=== PATIENT | female | born 1950 | race Caucasian/White ===

== ENCOUNTER 2022-04-20 14:25 | Emergency (ER) | payer MEDICARE, OTHER, SELFPAY ==
--- NOTE | ~2022-04-20 | XR_ITS ---
EXAMINATION: XR chest 2V Exam Date/Time: 04/20/2022 14:55 HOTEL OPERATIONS MANAGER HISTORY: COUGH, COVID+ Comparison: 02/20/2018. RESULT: Lines, tubes, and devices: None. Lungs and pleura: Clear. Calcified right middle lobe granuloma. Cardiomediastinal silhouette: Stable. Other: No acute osseous or upper abdominal finding. IMPRESSION: No acute cardiopulmonary process. Reviewed, dictated and finalized at location K. L OPERATIONS MANAGER
--- NOTE | 2022-04-20 14:32 | ED.URI ---
HPI - URI/Sore Throat General Chief Complaint: Upper Respiratory Infection Stated Complaint: cough,breathing prob,sneezing Time Seen by Provider: 04/20/22 14:45 Source: patient Mode of arrival: ambulatory Limitations: no limitations History of Present Illness HPI Narrative: Chrissy is a 71-year-old female patient presenting to the clinic today with complaints of cough, sneezing, and breathing problems x5 days. Family member reports that they tested her for COVID on Friday and was negative and retest her today and was positive. Patient reports that she is becoming more short of breath. She denies any chest pain, fever, or chills. Cough is not productive MD elicited complaint: cough, rhinorrhea, nasal congestion and other Related Data Home Medications Medication Instructions Recorded Confirmed cholecalciferol (vitamin D3) 25 25 mcg PO DAILY 05/24/19 05/25/19 mcg (1,000 unit) capsule epinephrine 0.3 mg/0.3 mL 0.3 mg IM ONCE 05/24/19 05/25/19 injection, auto-injector (EpiPen) flecainide 100 mg tablet 100 mg PO Q12H PRN 05/24/19 05/25/19 fluoxetine 10 mg capsule 10 mg PO DAILY 05/24/19 05/25/19 folic acid 1 mg tablet 1 mg PO DAILY 05/25/19 05/25/19 lactobacillus combination no.8 3 3,000 mmu cells PO DAILY 05/25/19 05/25/19 billion cell capsule (Adult Probiotic) eoqhzenr-lbhwxbn-utix-lutein tablet mcg PO 05/25/19 05/25/19 vitamin B complex 1 tablet PO DAILY 05/25/19 05/25/19 Allergies Allergy/AdvReac Type Severity Reaction Status Date / Time trimethoprim Allergy Mild trimethoprim Verified 04/20/22 14:39 ([id number]) bacitracin Allergy Unknown bacitracin Verified 04/20/22 14:39 ([id number]) clarithromycin Allergy Unknown clarithromycin Verified 04/20/22 14:39 ([id number]) diphenhydramine Allergy Unknown diphenhydramine Verified 04/20/22 14:39 ([id number]) nickel Allergy Unknown Unknown Verified 04/20/22 14:39 Penicillins Allergy Unknown Penicillins Verified 04/20/22 14:39 ([id number]) pseudoephedrine Allergy Unknown pseudoephedrine Verified 04/20/22 14:39 ([id number]) silicone Allergy Unknown silicone Verified 04/20/22 14:39 ([id number]) Sulfa (Sulfonamide Allergy Unknown Sulfa Verified 04/20/22 14:39 Antibiotics) (Sulfonamide Antibiotics) ([id number]) Review of Systems Review of Systems: Pertinent positives per HPI. Patient denies any fever, chills, rash, headache, visual changes, dizziness, chest pain, palpitations, nausea, vomiting, diarrhea, constipation, abdominal pain, or any urinary issues. [facility] Past Medical History Medical History Chest pain in adult History of ectopic PAF (paroxysmal atrial fibrillation) Family History Family History Mother Hypertension, Onset Age: 74 Father Hypertension, Onset Age: 94 Social History Social History Smoking status: Former smoker Comments At the time of my signature, I reviewed and agree with the nursing past medical, surgical, social, and family history. There is no relevant family history pertinent to the patient complaint. Exam Narrative: General: Well-developed, well nourished, in mild respiratory distress Head: Normocephalic, atraumatic Eyes: Pupils equally round and reactive to light bilaterally, EOM intact, sclera and conjunctive clear, no discharge, lids normal Ears: TMs intact and clear, ear canals clear, no drainage, grossly hearing normal. Nose: Nares patent, clear nasal discharge, no inflammation, no sinus tenderness. Mouth: Oral pharynx without lesions or masses, good dentition, MMM. Neck: Supple, trachea midline, no enlargement of anterior or posterior cervical nodes, no thyroid masses or goiter palpable. Cardio: Regular rate and rhythm, s1 and s2 normal, no murmur apprecia
[2022-04-20 14:39] VITALS: BP 126/43; PULSE 69; RESP 16; TEMP 36.4; O2SAT 97
[2022-04-20 14:40] VITALS: BP 126/43; PULSE 69; RESP 16; TEMP 36.4; O2SAT 97
== END 2022-04-20 15:40 | disposition home or self-care (01) ==
PROVIDERS: Emergency Provider Nurse Practitioner Family
DX: U07.1 COVID-19 (principal); I48.0 Paroxysmal atrial fibrillation; Z87.891 Personal history of nicotine dependence
CPT/HCPCS: 71046; 99213; G0463

== ENCOUNTER 2024-05-11 08:13 | Outpatient (CLI) | payer MEDICARE, OTHER, SELFPAY ==
--- NOTE | ~2024-05-11 | XR_ITS ---
XR knee RT min 4V Ordering provider: Fredrick Dow MD History: . Right knee pain . Comparison: None. FINDINGS: BONES: No acute fracture or dislocation. JOINT SPACES: Narrowing of the medial compartment. SOFT TISSUES: Normal. IMPRESSION: No acute osseous abnormality right knee. Mild to moderate osteoarthritic changes with narrowing of the medial compartment.. Reviewed, dictated and finalized at location A. CLING SORTER IMPRESSION: No acute osseous abnormality right knee. Mild to moderate osteoarthritic changes with narrowing of the medial compartmen t..
== END 2024-05-11 08:14 | disposition home or self-care (01) ==
LOC: CHSIMG 08:21
PROVIDERS: Visit Provider Orthopaedic Surgery
DX: M25.561 Pain in right knee (principal)
CPT/HCPCS: 73564

== ENCOUNTER 2024-07-01 11:43 | Outpatient (CLI) | payer MEDICARE, OTHER, SELFPAY ==
--- NOTE | 2024-07-01 12:05 | ECG_ITS ---
Test Date: 2024-07-01 12:22:35 Measurements Intervals [place] Rate: 52 P: -4 UT: 137 QRS: 15 QRSD: 81 T: 10 QT: 428 QTc: 399 Interpretive Statements SINUS BRADYCARDIA LOW QRS VOLTAGE IN PRECORDIAL LEADS [QRS DEFLECTION < 1.0 mV IN CHEST LEADS] MINIMAL ST DEPRESSION [0.025+ mV ST DEPRESSION] No previous ECG available for comparison Electronically Signed On 07-01-2024 14:09:42 HOME HEALTH ADMINISTRATOR by Dandy Brown M.D.
[2024-07-01 12:30] LABS: Basophils Absolute Auto 0.1 K/mm3 (0.0-0.1); Basophils Percent Auto 0.9 % (0.2-1.2); Eosinophils Absolute Auto 0.1 K/mm3 (0-0.3); Eosinophils Percent Auto 1.5 % (0-4.4); Hematocrit 43.8 % (37.0-47.0); Hemoglobin 14.4 g/dL (12.0-15.0); Immature Granulocyte Absolute 0.04 K/mm3 (0.00-0.031); Immature Granulocyte Percent A 0.5 % (0-0.5); Lymphocytes Absolute Auto 2.22 K/mm3 (0.9-3.2); Lymphocytes Percent Auto 29.3 % (18.3-44.2); Mean Corpuscular HGB Conc 32.9 g/dl (32-36); Mean Corpuscular Hemoglobin 30.8 pg (26-34); Mean Corpuscular Volume 93.8 fl (80-100); Mean Platelet Volume 11.1 fl (7.4-10.4); Monocytes Absolute Auto 0.5 K/mm3 (0.1-0.6); Monocytes Percent Auto 6.9 % (2.6-8.5); Neutrophils Absolute Auto 4.6 K/mm3 (1.3-6.7); Neutrophils Percent Auto 60.9 % (45.5-73.1); Platelet Count Result 229 k/mm3 (150-375); Red Blood Count 4.67 M/mm3 (4.2-5.4); Red Cell Distribution Width 13.4 % (11.5-14.5); White Blood Count 7.6 K/mm3 (4.5-10.0)
[2024-07-01 12:36] LABS: Add Urine Microscopic? YES; Appearance Urine Turbid (Clear); Bacteria Urine None Seen /hpf; Bilirubin Urine Negative (Negative); Blood Urine Negative (Negative); Color Urine Dark Yellow (Yellow); Glucose Urine UA Negative (Negative); Ketones Urine Trace mg/dL (Negative); Leukocyte Esterase Ur Trace LEU/UL (Negative); Nitrate Urine Negative (Negative); Protein Urine Negative (Negative); RBC Urine 0-2 /hpf (0-2); Specific Grav Ur 1.018 (1.001-1.035); Squamous Epithelial Cell Urine None Seen /hpf (Few); Urobilinogen Urine 0.2 mg/dL (<2.0); WBC Urine 0-5 /hpf (0-3); pH Urine 7.5 (5.0-9.0)
--- OUTSIDE RECORDS SUMMARY | 2024-07-01 13:21 | XMS_ITS | Clinical Summary ---
Author Organization [facility] Address [address] [place] [address] Phone Care Team Providers Care Billiard Player Name Role Phone Provider, Unknown Primary Care Provider Unavaila ble Allergies Active Allergy Reactions Criticality Noted Date Comments Bacitracin Unknown 07/09/2015 Clarithromycin Unknown 07/09/2015 Diphenhydramine Unknown 11/19/2015 Levofloxacin Unknown 07/09/2015 Loratadine Unknown 07/09/2015 Penicillins Unknown 07/09/2015 Silicone Unknown 11/19/2015 Sulfa Antibiotics Unknown 07/09/2015 Trimethadione Unknown 07/09/2015 Medications ondansetron (ZOFRAN-ODT) 8 MG TABLET DISPERSIBLE Take 1 PO Q 8 hours as needed for nausea 6 Active FLUoxetine (PROZAC) 10 MG Capsule Take 10 mg by mouth daily. Active EPINEPHrine (EPIPEN 2-NGUYEN) 0.3 MG/0.3ML Solution Auto-injector 0.3 mg by Intramuscular route once as needed. Active flecainide (TAMBOCOR) 100 MG Tablet Take 100 mg by mouth 2 times daily. Active Social History Tobacco Use Types Packs/Day Years Used Date Smoking Tobacco: Former Cigarettes 2 14 Smokeless Tobacco: Never Alcohol Use Standard Drinks/Week Comments Yes 10 (1 standard drink = 0.6 oz pu re alcohol) Comments No Sex and Gender Information Value Date Recorded Sex Assigned at Not on file Legal Sex Female 9:43 AM CDT Gender Identity Not on file Sexual Orientation Not on file Last Filed Vital Signs Vital Sign Reading Time Taken Comments Blood Pressure 140/98 12/31/2017 11:30 AM CDT Pulse 59 12/31/2017 11:30 AM CDT Temperature 36.7 C (98.1 F) 12/31/2017 11:30 AM CDT Respiratory Rate 16 12/31/2017 11:30 AM CDT Oxygen Saturation 99% 12/31/2017 11:30 AM CDT Inhaled Oxygen Concentration - - Weight 59 kg (130 lb) 12/31/2017 11:30 AM CDT Height 162.6 cm (5' 4 ) 12/31/2017 11:30 AM CDT Body Mass Index 22.31 12/31/2017 11:30 AM CDT Plan of Treatment Health Maintenance Due Date Last Done Comments DEXA Bone Density 1950 Hepatitis C Virus (HCV) Screening 1950 Colonoscopy 1994 Colorectal Cancer Screening 1994 Cologuard 1999 Immunochemical Fecal Occult Blood 1999 Mammogram 1999 Zoster Immunization (2 of 3) 06/23/2009 04/28/2009 Pneumococcal Immunization (5 0+ years) (2 of 2 - PCV) 11/20/2016 11/21/2015, 04/28/2010 Influenza Immunization (#1) 12/28/202302/28, 01/05/2016 SARS-COV-2 Immunization (1 - 2023- season) 2023 Respiratory Syncytial Virus (RSV) Immunization (Adult) (1 - 1-dose 75+ series) 2024 Pneumococcal Immunization Combined Discontinued 11/21/2015, 04/28/2010 DTaP/Tdap/Td Immunization Discontinued 05/24/2016 TdaP Immunization Completed 05/24/2016 Hepatitis B Immunization Aged Out No longer eligible based on patient's age to complete this topic Meningococcal Immunization (ACWY) Aged Out No longer eligible based on patient's age to complete this topic Rotavirus Immunization Aged Out No lo nger eligible based on patient's age to complete this topic Insurance [facility]ICARE [facility] Care Teams Billiard Player Relationship Specialty Start Date End Date Provider, Unknown UNKNOWN PCP - General 12/31/17
--- OUTSIDE RECORDS SUMMARY | 2024-07-01 13:21 | XMS_ITS | Data Portability ---
Author Organization [facility] [employer] Address [address] [place] [address] Care Team Providers Care Television Production Clerk Name Role Phone MITCHELL RONQUILLO Primary Care Provider [phone] Assessment Encounter Date Assessment Date Assessment LastModified by Organization Details LastModified Time 09/04/2023 09/04/2023 Chrissy presents f or evaluation of her right knee. States her right knee pains been ongoing for approximately 2 months. She presents with her who is at the bedside. Her and her spend their winter months in [facility]. She endorses pain in the anterior aspect of her right knee. She does not endorse any right knee instability or radicular symptoms. She denies any acute injuries or falls. Her and her have been doing a significant amount of gardening over the past couple of months which she feels has aggravated her right knee. She endorses pain with squatting and stair climbing. She has a history of a prior right knee injury from downhill skiing approximately 40 to 50 years ago which was treated nonoperatively. She remembers being on crutches, but is unable to tell me the extent of this injury. I did review the patient's x-rays from [facility] dated 08/29/2023 with her and her at the bedside. There is evidence of moderate medial compartment arthrosis with joint space narrowing, subchondral sclerosis, and marginal spurring. There is evidence of moderate patellofemoral compartment arthrosis. There are no signs of fracture or dislocation. There are no signs of a complicating process. Impression: See findings. Replacement After reviewing her history, x-rays, and clinical exam we had a discussion regarding treatment options for her right knee. I overall provided reassurance that her right knee does not display severe arthrosis nor is she in need of a knee replacement at this time. She would like to try conservative treatment options in the form of a ultrasound-guided intra-articular injection for the right knee. With her permission and under sterile technique this was performed. She tolerated procedure well without complications. She understands take it easy for 24 hours following injection. We did briefly discuss viscosupplementation injections, and she may begin this in 3 months time if she is interested. I did provide her with pamphlets for Euflexxa as well as Supartz. She is may continue weight-bear as tolerated. She may continue activity per pain tolerance. She will plan to follow-up as needed for recheck of her right knee. All of her questions were answered. [facility] Not available 09/04/2023 09:25:20 Plan of Treatment Reminders Order Date Submit Date Provider Last Modified By Organization Details Last Modified Time Details Appointments None recorded. Lab None recorded. Referral None recorded. Procedures None recorded. Surgeries None recorded. Imaging None recorded. Medication Orders lidocaine HCl 10 mg/mL (1 %) injection solution 2023 [id number], [address] [place], [address], 4 09:10:34 bupivacai ne (PF) 0.5 % (5 mg/mL) injection solution 2023 [id number], [address] [place], [address], 4 09:10:34 Depo-Medr ol 40 mg/mL suspensio n for injection 2023 024 [id number], [address] [place], [address], 09:10:34 Patient TargetsNo targets recorded. Patient InstructionsNo instructions recorded. Reason for Referral None Reported. Problems Name Problem SNOMED Code Status Onset Date Resolution Date Notes Provider Name and Address Organization Details Recorded Time Osteoarthri tis of right knee joint 3310771457504 00 Active 2023 MARYLIN Goyal [address] [place], [address], [facility] 09:21:14 Problem Notes None recorded. Procedures Surgical History Date Name Laterality Status Provider Name and Address Organization Details Recorded Time Cortisone Inj w/ - Large Joint completed MARYLIN Goyal [address] [place], [address], [facility] 09/04/2023 09:38:01 Imaging Results None recorded. Procedure Notes None recorded. Medical Equipment None Reported. Medications Name Sig Start Date Stop Date Status Note LastModified by Organization Details LastModified Time atorvastatin 40 mg tablet TAKE 1 TABLET BY MOUTH EVERY DAY active Not Available Not Available No t Available lidocaine HCl 10 mg/mL (1 %) injection solution Take 2 mL by injection route. 2023 active Not Available Not Available Not Avai lable doxycycline hyclate 100 mg capsule TAKE 1 CAPSULE BY MOUTH TWICE A DAY active Not Available Not Available No t Available Depo-Medrol 40 mg/mL suspension for injection Take 80 mg by injection route. 2023 active Not Available Not Available Not Avai lable donepezil 10 mg tablet TAKE 1 TABLET BY MOUTH EVERY DAY IN THE EVENING active Not Available Not Available No t Available prednisone 20 mg tablet TAKE 3 TABLETS BY MOUTH X 3D, TAKE 2 TABLETS BY MOUTH X3D, TAKE 1 TABLET BY MOUTH X3D WITH FOOD active Not Available Not Available No t Available levothyroxin e 25 mcg tablet TAKE 1 TABLET BY MOUTH EVERY DAY active Not Available Not Available No t Available cephalexin 500 mg capsule TAKE 1 CAPSULE BY MOUTH EVERY 12 HOURS active Not Available Not Available No t Available pantoprazole 40 mg tablet,delay ed release TAKE 1 TABLET BY MOUTH EVERY DAY active Not Available Not Available No t Available losartan 25 mg tablet TAKE 1 TABLET BY MOUTH EVERY DAY active Not Available Not Available No t Available epinephrine 0.3 mg/0.3 mL injection, auto-injecto r INJECT 0.3 ML INTRAMUSCUL [place] ONCE NEEDED FOR ANAPHYLAXIS active Not Available Not Available Not Available albuterol sulfate HFA 90 mcg/actuatio n aerosol inhaler TAKE 1 PUFF BY MOUTH EVERY 4 TO 6 HOURS NEEDED active Not Available Not Available No t Available cefdinir 300 mg capsule TAKE 1 CAPSULE BY MOUTH EVERY 12 HOURS active Not Available Not Available No t Available sertraline 50 mg tablet TAKE 1/2 (HALF) TABLET NIGHTLY active Not Available Not Available No t Available bupivacaine (PF) 0.5 % (5 mg/mL) injection solution Take 2 mL by injection route. 2023 active Not Available Not Available Not Avai lable Eliquis 5 mg tablet TAKE 1 TABLET BY MOUTH TWICE A DAY active Not Available Not Available No t Available Vitals None Recorded Social History Question Answer Notes LastModified by Organizat ion Details LastModified Time Tobacco Smoking Status Former Smoker Etta villalba [place] [facility] 09/03/2023 17:06:26 What Is Your Level Of Alcohol Consumption? Heavy Information not available 09/03/2023 How Many Times Per Week Do You Consume Alcohol? 5-7 Times Per Week Information not available 09/03/2023 When Did You Quit Smoking? 16+yearssin celastcijerome ette Information not available 09/03/2023 Do You Use Any Illicit Or Recreational Drugs? No Information not available 09/03/2023 Sex: Unknown Functional Status Question Answer Note LastModified by Organizat ion Details LastModified Time What is your exercise level? Occasional Information not available 09/03/2023 Mental Status None recorded. Family History Relationship Description Onset Age of this Age Resolved Age Notes LastModified by Organization Details LastModified Time Mother Complication of anesthesia Not available 09/02 17:05:27 Medical History Condition Response Diabetes N DVT--blood clot in your legs N Cardiac Stent N MRSA N Heart Valve Surgery N Metal Allergy N Pacemaker N Latex Allergy Y Sleep Apnea N Rheumatoid Arthritis N Pulmonary Embolism N Taking Blood Thinners N Gynecological HistoryNo gynecological history recorded. Obstetrics History GPAL:G 0 P 0 0 0 0 Past Encounters Encounter ID Performer Location Encounter Start Date Encounter Closed Date Diagnosis/Indication Diagnosis SNOMED-CT Code Diagnosis ICD10 Code Diagnosis Note [id number] MARYLIN Goyal [facility] [address] [place] [address] 09/04/2023 08:13:30 09/04/2023 09:00:42 Pain of right knee joint 1203960549 35029 M25.561 Osteoarthr itis of right knee joint 1527698367 32766 M17.11 Risks to the injection include pain, numbing, scar, infection, loss of motion, nerve or vascular injury, stiffness, skin discolorat ion, fat atrophy, or allergic reaction to medicine. The patient voiced understand ing of the procedure and risks, and the decision for injection was made today.Florencia ent was advised to take it easy today and avoid heavy activity or exercise for the next 48 hours. Use ice and elevate as needed. Continue with activities based on symptoms. Give us a call if there are any issues. Health Concerns Section Related Observation LastModified by Organization Detai ls LastModified Time None Recorded Concern Status LastModified by Organization Details LastModified Time None Recorded Advance Directives Directive None Recorded Payers Encounter Date Sequence Insurance Name Policy Number Policy Huizar Covered Member ID Hiuzar Member ID Guarantor Name 09/04/2023 1 [place] Chrissy Stanley [id number] Chrissy Stanley 09/04/2023 2 [facility] [facility] [employer] (MEDICARE SUPPLEMENT) Chirssy Stanley [id number] Chrissy Stanley Notes Date Note Type Note Provider Name and Address Organization Details Recorded Time 09/04/2023 text/html See assessment a nd plan. Patient presents for evaluation of her right knee. States her right knee pains been ongoing for approximately 2 months. She endorses pain in the anterior aspect of her right knee. She presents with her is at the bedside. She does have a history of a prior skiing accident approximately 40 to 50 years ago which was treated nonoperatively. She does not endorse any right knee instability or radicular symptoms. John Mahoney, PAC [address] [place], [address], [place] [facility] 09/04/2023 09:43:30 OBGyn Episode No OBEpisode recorded.
--- OUTSIDE RECORDS SUMMARY | 2024-07-01 13:21 | XMS_ITS | Continuity of Care Document ---
Author Organization [facility] Address [address] [place] [address] Phone Care Team Providers Care Wrong Address Clerk Name Role Phone Michael MICHEL, Les Unavailable Unavailable Medications Medication Instructions Dosage Effective Dates (start - stop) Status Comments flecainide 150 mg tablet take 1 Tablet by ORAL route once a day prn afib - Active Potassium 99 mg Tab - Active Multiple Vitamin Tab take 1 tablet by OR AL route every day with food - Active Aspir-81 81 mg Tab take 1 tablet (81MG) by ORAL route every day - Active Procedures Procedure Date OFFICE/OUTPATIENT VISIT EST OFFICE/OUTPATIENT VISIT, EST HT MUSCLE IMAGE SPECT, MULT NUCLEAR STRESS TEST Tc99m tetrofosmin/MYOVIEW OFFICE/OUTPATIENT VISIT, EST CARDIOVASCULAR STRESS TEST OFFICE/OUTPATIENT VISIT, EST OFFICE/OUTPATIENT VISIT, EST CARDIOVASCULAR STRESS TEST ECHO COMPLETE W/DPLR & CF OFFICE CONSULTATION Advance Directives Directive Yes / No Effective Date File Name No Information Encounters Encounter Description Practice Location Reason(s) For Visit Diagnoses Date Provider Providers Copied on Encounter [facility], [address], [place], [address], [place] tel:[phone] [facility] 1 No Information 4 Michael Saldana. [address], [facility], [place], [place], [id number] , [place]. tel: [phone] OFFICE/OUTPAT IENT VISIT EST [facility], [address], [place], [address], [place] tel: [phone] [facility] 1 Atrial Fibrillation 4 Michael Saldana. [address], [facility], [place], [place], [id number] , [place]. tel: [phone] Referring Provider: Les Rodriguez MD, [address] [facility], [place], [address] . tel:[phone] OFFICE/OUTPAT IENT VISIT, EST [facility], [address], [place], [address], [place] tel: [phone] [facility] Atrial Fibrillation 3 Michael Saldana. [address], [facility], [place], [place], [id number] , [place]. tel: [phone] [facility], [address], [place], [address], [place] tel: [phone] [facility] No Information 1 Narendra Tamayo . [address], [facility], [place], [address], [place]. tel: [phone] Referring Provider: Les Rodriguez MD, [address] [facility], [place], [address] . tel:[phone] OFFICE/OUTPAT IENT VISIT, EST [facility], [address], [place], [address], [place] tel: [phone] [facility] Chest PainAbnormal Stress TestAtrial Fibrillation 1 Michael Saldana. [address], [facility], [place], [place], [id number] , [place]. tel: [phone] Referring Provider: Les Rodriguez MD, [address] [facility], [place], [address] . tel:[phone] OFFICE/OUTPAT IENT VISIT, EST [facility], [address], [place], [address], [place] tel: [phone] [facility] Atrial Fibrillation Nov-0 201 0 Michael Saldana. [address], [facility], [place], [place], [id number] , [place]. tel: [phone] Referring Provider: Les Rodriguez MD, [address] [facility], [place], [address] . tel:[phone] OFFICE/OUTPAT IENT VISIT, EST [facility], [address], [place], [address], [place] tel: [phone] [facility] Atrial FibrillationChest Pain 0 Michael Saldana. [address], [facility], [place], [place], [id number] , [place]. tel: [phone] Referring Provider: Les Rodriguez MD, [address] [facility], [place], [address] . tel:[phone] [facility], [address], [place], [address], [place] tel: [phone] [facility] No Information 0 Michael Saldana. [address], [facility], [place], [place], [id number] , [place]. tel: [phone] Referring Provider: Les Rodriguez MD, [address] [facility], [place], [address] . tel:[phone] OFFICE CONSULTATION [facility], [address], [place], [address], [place] tel: [phone] [facility] Atrial FibrillationHypokal emiaHypothyroidism 201 0 Michael Saldana. [address], [facility], [place], [place], [id number] , [place]. tel:[phone] Family History Family Member Type Diagnosis Age At Onset No Information Payers Payer name Insurance type Covered alliance party ID Angie fall(mary) Michel [id number] Social History Type Description Quantity Date Captured Comments Sex Female Smoking Status No Information Chief Complaint And Reason For Visit No Information Reason For Referral Reason For Referral No Information History Of Present Illness Encounter Date Complaint History Of Prese nt Illness No Information Functional Status Date Functional Assessmen t No Information Instructions Date Instruction Additional Infor mation No Information Assessments Type Assessment Date No Information Patient Care Teams Name Effective Dates (start - stop) Status Members No Information
--- OUTSIDE RECORDS SUMMARY | 2024-07-01 13:21 | XMS_ITS | Referral Summary ---
Author Organization [facility] Virtual Care Address [address] [place] [phone] Phone Care Team Providers Care Welding Machine Operator Resistance Name Role Phone Hector Spivey MD Primary Care Provider [phone] Encounters Date Type Department Care Team Description 05/28/2024 9:15 AM CANVAS CUTTER Ancillary Procedure [facility] Mobile MRI [address] [place] [address] Right knee pain, unspecified chronicity 05/12/2024 Orders Only [facility] Health Information Management [address] [place] [address] Scanning, Provider 04/06/2024 4:30 PM CANVAS CUTTER Office Visit [facility] [address] [place] [address] 6th [place] [address] [place] [address] Dayana Velasco MD PhD Late onset Alzheimer's dementia without behavioral disturbance (HCC) (Primary Dx) from Last 3 Months Allergies Active Allergy Reactions Criticality Noted Date Comments Venom-Honey Bee Swelling Medium 02/15/2019 Diphenhydramine Hives Medium 02/15/2019 Clarithromycin Hives Medium 02/15/2019 Loratadine Other (See comments) Low 02/15/2019 insomnia Coconut Other (See comments) Low 02/15/2019 hives Levofloxacin Rash Medium 02/15/2019 Insomnia Penicillins Hives,Swelling Medium 02/15/2019 Silicon Rash Medium 02/15/2019 Sulfa (Sulfonamide Antibiotics) Hives,Swelling Medium 02/15/2019 Trimethoprim Hives Medium 02/15/2019 Medications FLUoxetine (PROzac) 10 mg tablet/capsule Take 1 tablet/capsule (10 mg total) by mouth daily Active EPINEPHrine 0.3 mg/0.3 mL auto-injection syringeIndicati ons:Anaphylaxis Inject 0.3 mL (0.3 mg total) into the muscle as instructed as needed for anaphylaxis Active fluticasone propionate (FLONASE) 50 mcg/actuation nasal sprayIndication s:Sinus congestion Administer 2 sprays into each nostril daily 16 g 3 0 Active Additional Information Patient not taking.Reported on 04/06/2024 cyanocobalamin (Vitamin B-12) 500 mcg tablet Activ e calcium carbonate-vitam in D3 1,250mg (500mg elemental) - 5 mcg (200 units) per tablet Active multivit-min/fe rrous fumarate (MULTI VITAMIN ORAL) Active cholecalciferol , vitamin D3, (VITAMIN D3 ORAL) Active folic acid 20 mg capsule Active losartan (COZAAR) 25 mg tablet Take 1 tablet (25 mg total) by mouth daily Active loratadine 10 mg capsule Take by mouth Activ e denosumab (PROLIA) 60 mg/mL syringe q 6 mo 1 mL 5 1 Active albuterol HFA (PROVENTIL HFA,VENTOLIN HFA,PROAIR HFA) 90 mcg/actuation inhaler INHALE 2 PUFFS EVERY 4 - 6 HOURS NEEDED FOR SHORTNESS OF BREATH OR WHEEZING FOR 30 DAYS. 2 Active atorvastatin (LIPITOR) 40 mg tablet Take 1 tablet (40 mg total) by mouth daily 3 Active levothyroxine (SYNTHROID) 25 mcg tablet Take 1 tablet (25 mcg total) by mouth daily 3 Active sertraline (ZOLOFT) 50 mg tablet 1/2 NIGHTLY 3 Active apixaban (ELIQUIS) 5 mg tablet Take 1 tablet (5 mg total) by mouth 2 (two) times a day Active donepeziL (ARICEPT) 10 mg tablet Take 1 tablet (10 mg total) by mouth nightly Restarted 5-6 months ago mid 2023 when started FODMAP diet. Active BUPivacaine (MARCAINE) 0.5 % (5 mg/mL) injection Take 2 mL by injection route. 4 Active cefdinir (OMNICEF) 300 mg capsule Take 1 capsule (300 mg total) by mouth every 12 (twelve) hours Active cephalexin (KEFLEX) 500 mg capsule Take 1 capsule (500 mg total) by mouth every 12 (twelve) hours Active methylPREDNISol one acetate (DEPO-MedroL) 40 mg/mL injection Take 80 mg by injection route. [address] (PROTONIX) 40 mg EC tablet Take 1 tablet (40 mg total) by mouth daily Active Active Problems Problem Noted Date Diagnosed Date Osteoarthritis of right knee 09/04/2023 Encounter for screening for malignant neoplasm o f colon 12/28/2022 Late onset Alzheimer's demen tia without behavioral disturbance 08/06/2022 Memory loss 08/02/2022 Thyroid nodule 05/16/2021 Tinnitus of both ears 04/18/2021 Chorda tympani disorder 04/18/2021 Essential hypertension 04/11/2021 Osteoporosis 02/15/2019 History of atrial fibrillation 02/15/2019 History of cervical cancer 02/15/2019 AVELINO (generalized anxiety disorder) 02/15/2019 Pulmonary nodule 02/15/2019 Thumb pain 03/25/2017 Immunizations Immunization Administration Dates Next Due Influenza, Trivalent, High D ose, Split, Preservative Free, Intramuscular 03/27/2017,01/05/2016 Influenza, Unspecified 03/07/2022,01/26/2021,02/2019 Pneumococcal Conjugate PCV 13 11/13/2016 Pneumococcal Polysaccharide PPV23 11/22/2015,04/2010 Tdap 05/06/2016 ZOSTER Recombinant 04/14/2019,03/20/2019, 019 Social History Tobacco Use Types Packs/Day Years Used Date Smoking Tobacco: Former Cigarettes 1.3 16 Smokeless Tobacco: Never Tobacco Cessation:Counseling Given: No Comments:quit 1982 Alcohol Use Standard Drinks/Week Comments Yes 14 (1 standard drink = 0.6 oz pu re alcohol) AUDIT-C Answer Date Recorded Q1: How often do you have a drink containing alcohol? Monthly or less 03/17/2023 Q2: How many drinks containi ng alcohol do you have on a typical day when you are drinking? Patient does not drink Q3: How often do you have si x or more drinks on one occasion? Never 03/17/2023 PHQ-2 Answer Date Recorded PHQ-2 Total Score (If total score is 3 or more points, staff should administer the PHQ-9) 2 05/16/2022 Comments Unknown Sex and Gender Information Value Date Recorded Sex Assigned at Not on file Legal Sex Female 12:10 PM CDT Gender Identity Female 02/17/2023 3:21 PM CDT Sexual Orientation Not on file Last Filed Vital Signs Vital Sign Reading Time Taken Comments Blood Pressure 165/87 04/06/2024 3:49 PM CANVAS CUTTER Pulse 64 04/06/2024 3:49 PM CANVAS CUTTER Temperature 36.6 C (97.8 F) 03/05/2023 2:41 PM CANVAS CUTTER Respiratory Rate 20 07/25/2022 3:07 PM CDT Oxygen Saturation 96% 03/05/2023 2:41 PM CANVAS CUTTER Inhaled Oxygen Concentration - - Weight 60.8 kg (134 lb) 04/06/2024 3:49 PM CANVAS CUTTER Height 160 cm (5' 3 ) 04/06/2024 3:49 PM CANVAS CUTTER Body Mass Index 23.74 04/06/2024 3:49 PM CANVAS CUTTER Plan of Treatment Not on file Procedures Procedure Name Priority Date/Time Associated Diagnosis Comments MRI KNEE RIGHT WO CONTRAST Schedule Routine, Read Routine (OP Routine) 05/28/2024 9:11 AM CANVAS CUTTER Right knee pain, unspecified chronicity SCAN - OTHER ORDERS 05/12/2024 MAMMOGRAPHY Routine 06/26/2018 COLONOSCOPY Routine 06/05/2016 from Last 3 Months or Most Recently Relevant to Health Maintenance Results * MRI Knee Right WO Contrast (05/28/2024 9:11 AM CANVAS CUTTER) Anatomical Region Laterality Modality Lower Extremities Right Magnetic Reson ance 05/28/2024 12:1 5 PM CANVAS CUTTER Impressions 05/28/2024 3:38 PM CANVAS CUTTER 1. No meniscal tear. 2. 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 No insufficiency fracture. Dictated by: Tr Parker M.D. The radiology attending physician has personally reviewed this study, and had reviewed and/or edited this written report and agrees with it. Electronically signed by: Miguel Lamar M.D. Narrative 05/28/2024 3:38 PM CANVAS CUTTER EXAMINATION: 1. MRI KNEE RIGHT WO CONTRAST HISTORY: Right knee pain. Recent fall. TECHNIQUE: MR examination of the right knee was performed with an extremity coil. No intravenous or intra-articular contrast was administered for this examination. Sagittal fast spin-echo images, coronal short TR/TE and fast spin-echo images, and transverse fast spin-echo images were obtained. FINDINGS: No prior study available for comparison. In the medial compartment, the meniscus is intact. There is full-thickness chondrosis throughout the central weightbearing femoral condyle with mild subchondral edema. Full-thickness chondral defect measures approximately 2 cm. There is also superficial and deep partial thickness chondrosis throughout the central weightbearing tibial plateau. In the lateral compartment, the meniscus is intact. Mild superficial thickness chondrosis in the central weightbearing femoral condyle and tibial plateau. No subchondral edema. In the patellofemoral compartment, there is diffuse mild superficial partial thickness chondrosis throughout the patella and trochlea with multifocal areas of deep partial and full thickness chondrosis in the medial patellar facet. No subchondral edema. The anterior and posterior cruciate ligaments are intact. The medial and lateral collateral ligaments are intact. Mild tendinopathy of the quadriceps tendon insertion without tear. The patellar tendon is normal. The popliteus tendon is normal. Trace knee joint effusion. Mild amount of fluid tracking along the popliteus tendon with small loose bodies. The bone marrow signal is normal. Procedure Note Miguel Lamar MD PhD - 05/28/2024 EXAMINATION: 1. MRI KNEE RIGHT WO CONTRAST HISTORY: Right knee pain. Recent fall. TECHNIQUE: MR examination of the right knee was performed with an extremity coil. No intravenous or intra-articular contrast was administered for this examination. Sagittal fast spin-echo images, coronal short TR/TE and fast spin-echo images, and transverse fast spin-echo images were obtained. FINDINGS: No prior study available for comparison. In the medial compartment, the meniscus is intact. There is full-thickness chondrosis throughout the central weightbearing femoral condyle with mild subchondral edema. Full-thickness chondral defect measures approximately 2 cm. There is also superficial and deep partial thickness chondrosis throughout the central weightbearing tibial plateau. In the lateral compartment, the meniscus is intact. Mild superficial thickness chondrosis in the central weightbearing femoral condyle and tibial plateau. No subchondral edema. In the patellofemoral compartment, there is diffuse mild superficial partial thickness chondrosis throughout the patella and trochlea with multifocal areas of deep partial and full thickness chondrosis in the medial patellar facet. No subchondral edema. The anterior and posterior cruciate ligaments are intact. The medial and lateral collateral ligaments are intact. Mild tendinopathy of the quadriceps tendon insertion without tear. The patellar tendon is normal. The popliteus tendon is normal. Trace knee joint effusion. Mild amount of fluid tracking along the popliteus tendon with small loose bodies. The bone marrow signal is normal. IMPRESSION: 1. No meniscal tear. 2. 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 No insufficiency fracture. Dictated by: Tr Parker M.D. The radiology attending physician has personally reviewed this study, and had reviewed and/or edited this written report and agrees with it. Electronically signed by: Miguel Lamar M.D. Fredrick Dow MD IMG MRI PROCEDURES Final Res ult * SCAN - OTHER ORDERS (05/12/2024) Provider Scanning Final Result * MAMMOGRAPHY (06/26/2018) Mammogram Normal Historical Provider HEALTH MAINTENANCE Final Result * (ABNORMAL) Colonoscopy (06/05/2016) Anatomical Region Laterality Modality Other Historical Provider ENDOSCOPY PROCEDURES Lexi l Result from Last 3 Months or Most Recently Relevant to Health Maintenance Insurance MEDICARE [facility] MEDICARE [facility] MEDICARE [facility] Care Teams Welding Machine Operator Resistance Relationship Specialty Start Date End Date Hector Spivey MD PCP - General Family Medicine 04/11/21 Dr. Sally Storm [address], [place] [phone] Family Medicine 04/06/24
--- OUTSIDE RECORDS SUMMARY | 2024-07-01 13:21 | XMS_ITS | Clinical Summary ---
Author Organization [facility] Virtual Care Address [address] [place] [phone] Phone Care Team Providers Care Phosphoric Acid Operator Name Role Phone Hector Spivey MD Primary Care Provider [phone] Allergies Active Allergy Reactions Criticality Noted Date [...] 02/15/2019 Pulmonary nodule 02/15/2019 Thumb pain 03/25/2017 Encounters Date Type Department Care Team Description 05/28/2024 9:15 AM ONLINE EDUCATION MANAGER Ancillary Procedure [facility] Mobile MRI [address] [place] [address] Right knee pain, unspecified chronicity 05/12/2024 Orders Only [facility] Health Information Management [address] [place] [address] Scanning, Provider 04/06/2024 4:30 PM ONLINE EDUCATION MANAGER Office Visit [facility] [address] 6th [place] [address] [place] [address] Dayana Velasco MD PhD Late onset Alzheimer's dementia without behavioral disturbance (HCC) (Primary Dx) from Last 3 Months Immunizations Immunization Administration Dates Next Due Influenza, Trivalent, High D ose, Split, Preservative Free, Intramuscular 03/27/2017,01/05/2016 Influenza, Unspecified 03/07/2022,01/26/2021,02/2019 Pneumococcal Conjugate PCV 13 11/13/2016 Pneumococcal Polysaccharide PPV23 11/22/2015,04/2010 Tdap 05/06/2016 ZOSTER Recombinant 04/14/2019,03/20/2019, 019 Surgical History Surgery Date Site/Laterality Comments [place] TONSILLECTOMY & ADENOIDEC MALOU <AGE 12 Tonsillectomy With Adenoidectomy - (Added by TW Conv) [place] CONIZATION CERVIX W/WO D& C RPR KNIFE/LASER Cervical Conization - (Added by TW Conv) [place] LAPS TX ECTOPIC PREG W/O SALPING&/OOPHORECTOMY Laparoscopy With Excision Of Ectopic - (Added by TW Conv) [place] NEUROPLASTY &/TRANSPOS ME SOLANGE NRV CARPAL TUNNE Neuroplasty Decompression Median Nerve At Carpal Tunnel - (Added by TW Conv) Medical History Medical History Date Comments Personal history of other di seases of the circulatory system History of atrial fibrillati on - (Added by TW Conv) Other specified disorders of the skin and subcutaneous tissue Lymphomatoid papulosis, type A - (Added by TW Conv) Personal history of other en docrine, nutritional and metabolic disease History of Staci thyroiditis - (Added by TW Conv) Personal history of diseases of skin or subcutaneous tissue History of allergic urticari a - (Added by TW Conv) Osteoarthritis Osteoarthritis - (Added by TW Conv) 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 - (Added by TW Conv) Personal history of other di seases of urinary system History of pyelonephritis - (Added by TW Conv) Cluster headache syndrome, n ot intractable Migraine-cluster headache sy ndrome - (Added by TW Conv) Personal history of other di seases of the respiratory system History of bronchitis - (Add ed by TW Conv) History of recurrent pneumonia H istory of pneumonia - (Added by TW Conv) Vitreous degeneration Posterior vitreous detachment - (Added by TW Conv) Tubal ligation status History of tubal ligation - (Added by TW Conv) Polyp of cervix uteri Cervical p olyp - (Added by TW Conv) Plantar fascial fibromatosis Pepper ntar fasciitis - (Added by TW Conv) Family History Medical History Relation Name Comments Diabetes Brother 1 Rheum arthritis Brother 2 Alzheimer's disease Father Hypertension Father Alzheimer's disease Mother Diabetes Other Family history of diabetes mellitus - (Added by TW Conv) Relation Name Status Comments Brother 1 (Age 68) Brother 2 Alive Father (Age 90) Mother (Age 64) Other Sister Alive Social History Tobacco Use Types Packs/Day Years Used Date Smoking Tobacco: Former Cigarettes 1.3 16 Smokeless Tobacco: Never Tobacco Cessation:Counseling Given: No Comments:quit 1981 Alcohol Use Standard Drinks/Week Comments Yes 14 [...] PM CDT Sexual Orientation Not on file Obstetrics History Last Filed Vital Signs Vital Sign Reading Time Taken Comments Blood Pressure 165/87 04/06/2024 3:49 PM ONLINE EDUCATION MANAGER Pulse 64 04/06/2024 3:49 PM ONLINE EDUCATION MANAGER Temperature 36.6 C (97.8 F) 03/05/2023 2:41 PM ONLINE EDUCATION MANAGER Respiratory Rate 20 07/25/2022 3:07 PM CDT Oxygen Saturation 96% 03/05/2023 2:41 PM ONLINE EDUCATION MANAGER Inhaled Oxygen Concentration - - Weight 60.8 kg (134 lb) 04/06/2024 3:49 PM ONLINE EDUCATION MANAGER Height 160 cm (5' 3 ) 04/06/2024 3:49 PM ONLINE EDUCATION MANAGER Body Mass Index 23.74 04/06/2024 3:49 PM ONLINE EDUCATION MANAGER Plan of Treatment Health Maintenance Due Date Last Done Comments Hepatitis C Screening 1950 Osteoporosis Screening-Bone Density Scan 1950 Hepatitis B Screening 1967 Depression Screening 05/16/2023 05/16/2022, 05/16/2021, 04/18/2021, Additional history exists Fall Risk Assessment 05/16/2023 05/16/2022, 05/16/2021, 04/18/2021, Additional history exists Well Visit 65+ 05/16/2023 05/16/2022 Influenza Vaccine (#1) 2023 2, 01/26/2021, 01/06/2019, Additional history exists DTaP/Tdap/Td Vaccine (2 - Td or Tdap) 05/06/2026 05/06/2016 Colon Cancer Screening-Colonoscopy 06/05/2026 06/05/2016 Colon Cancer Screening-CT Colonography Discontinued 06/05/2016 Colon Cancer Screening-DNA Stool Discontinued 06/05/19 17 Colon Cancer Screening-FIT Discontinued 06/05/2016 Colon Cancer Screening-Sigmoidoscopy Discontinued 06/05/2016 Pneumococcal vaccine 65+ Completed 017, 11/22/2015, 04/28/2010 Breast Cancer Screening-Mammogram Discontinued 019, 06/26/2018 Zoster Vaccine Completed 04/14/2019, 02/27, 12/18/2018 Procedures Procedure Name Priority Date/Time Associated Diagnosis Comments MRI KNEE RIGHT WO CONTRAST Schedule Routine, Read Routine (OP Routine) 05/28/2024 9:11 AM ONLINE EDUCATION MANAGER Right knee pain, unspecified chronicity SCAN - OTHER ORDERS 05/12/2024 HM MAMMOGRAPHY Routine 06/26/2018 COLONOSCOPY Routine 06/05/2016 from Last 3 Months or Most Recently Relevant to Health Maintenance Results * MRI Knee Right WO Contrast (05/28/2024 9:11 AM ONLINE EDUCATION MANAGER) Anatomical Region Laterality Modality Lower Extremities Right Magnetic Reson ance 05/28/2024 12:1 5 PM ONLINE EDUCATION MANAGER Impressions 05/28/2024 3:38 PM ONLINE EDUCATION MANAGER 1. No meniscal tear. 2. Moderate to [...] Miguel Lamar M.D. Narrative 05/28/2024 3:38 PM ONLINE EDUCATION MANAGER EXAMINATION: 1. MRI KNEE RIGHT WO CONTRAST [...] Recently Relevant to Health Maintenance Insurance MEDICARE [facility] MEDICARE [facility] MEDICARE [facility] Care Teams Phosphoric Acid Operator Relationship Specialty Start Date End Date Hector Spivey MD PCP - General Family Medicine 04/11/21 Dr. Sally Storm [address], [place] [phone] Family Medicine 04/06/24
[2024-07-01 13:32] LABS: Anion Gap 10 mmol/L (4-12); Blood Urea Nitrogen 18 mg/dL (7-17); Calcium 9.7 mg/dL (8.4-10.2); Carbon Dioxide 24 mmol/L (22-30); Chloride 104 mmol/L (98-107); Estimated Glomerular Filt Rate > 60; Glucose 98 mg/dL (65-110); Potassium 4.4 mmol/L (3.4-5.0); Sodium 138 mmol/L (137-145)
== END 2024-07-01 11:44 | disposition home or self-care (01) ==
PROVIDERS: PCP Family Medicine; Visit Provider Orthopaedic Surgery
DX: I48.0 Paroxysmal atrial fibrillation (principal); M17.11 Unilateral primary osteoarthritis, right knee; E78.5 Hyperlipidemia, unspecified
CPT/HCPCS: 36415; 80048; 81001; 85025; 93005

== ENCOUNTER 2024-07-28 11:26 | Observation (INO) | payer MEDICARE, OTHER, SELFPAY ==
[2024-07-28] VITALS (14 sets, daily range): BP systolic 116–148; BP diastolic 55–103; PULSE 59–68; RESP 13–20; TEMP 36.4–37.2; O2SAT 95–100; BMI 24.0
--- NOTE | ~2024-07-28 | XR_ITS ---
EXAMINATION: XR chest 1V portable 07/28/2024 12:19 INDICATION: Chest pain PROCEDURE: AP portable chest COMPARISON: Comparison to multiple prior studies sequentially, with oldest reviewed study dated 10/24. FINDINGS: The lungs are clear. There is a calcified granuloma of the right lower thorax. The cardiome diastinal silhouette is within normal limits. There are no pleural effusions. There is no pneumotho rax suspected. IMPRESSION: 1: NO ACUTE CARDIOPULMONARY DISEASE. Reviewed, dictated and finalized at location A.
--- NOTE | 2024-07-28 11:27 | ECG_ITS ---
Test Date: 2024-07-28 11:40:16 Measurements Intervals [place] Rate: 60 P: -35 CA: 118 QRS: -1 QRSD: 79 T: 43 QT: 412 QTc: 413 Interpretive Statements SINUS RHYTHM WITH SHORT CA INTERVAL EARLY PRECORDIAL R/S TRANSITION BORDERLINE ST-T WAVE ABNORMALITY- ANT/HIGH LAT LEADS BASELINE ARTIFACT- I, II, AVR, AVL, AVF BORDERLINE ECG Compared to ECG 07/01/2024 12:22:35 HEART RATE HAS INCREASED Electronically Signed On 07-28-2024 11:49:08 CDT by Joni Obrien D.O.
[2024-07-28] MEDS: ASPIRIN 81 MG CHEWABLE TABLET 324 MG PO (12:08)
[2024-07-28 12:12] LABS: Basophils Absolute Auto 0.1 K/mm3 (0.0-0.1); Basophils Percent Auto 0.9 % (0.2-1.2); Eosinophils Absolute Auto 0.1 K/mm3 (0-0.3); Eosinophils Percent Auto 0.9 % (0-4.4); Hematocrit 42.3 % (37.0-47.0); Hemoglobin 14.2 g/dL (12.0-15.0); Immature Granulocyte Absolute 0.03 K/mm3 (0.00-0.031); Immature Granulocyte Percent A 0.4 % (0-0.5); Lymphocytes Absolute Auto 2.26 K/mm3 (0.9-3.2); Lymphocytes Percent Auto 30.1 % (18.3-44.2); Mean Corpuscular HGB Conc 33.6 g/dl (32-36); Mean Corpuscular Volume 92.4 fl (80-100); Mean Platelet Volume 11.2 fl (7.4-10.4); Monocytes Absolute Auto 0.5 K/mm3 (0.1-0.6); Monocytes Percent Auto 6.5 % (2.6-8.5); Neutrophils Absolute Auto 4.6 K/mm3 (1.3-6.7); Neutrophils Percent Auto 61.2 % (45.5-73.1); Platelet Count Result 235 k/mm3 (150-375); Red Blood Count 4.58 M/mm3 (4.2-5.4); Red Cell Distribution Width 13.1 % (11.5-14.5); White Blood Count 7.5 K/mm3 (4.5-10.0)
[2024-07-28 12:19] LABS: Alanine Aminotransferase 33 U/L (6-35); Albumin Level 4.4 g/dL (3.5-5.1); Alkaline Phosphatase 70 U/L (38-126); Anion Gap 13 mmol/L (4-12); Aspartate Amino Transferase 40 U/L (14-36); Bilirubin,Total 0.6 mg/dL (0.2-1.3); Blood Urea Nitrogen 18 mg/dL (7-17); Calcium 9.7 mg/dL (8.4-10.2); Carbon Dioxide 23 mmol/L (22-30); Chloride 103 mmol/L (98-107); Estimated CRCL calculation 47 ml/min; Estimated Glomerular Filt Rate > 60; Glucose 95 mg/dL (65-110); Lipase 210 U/L (23-300); Potassium 4.1 mmol/L (3.4-5.0); Sodium 139 mmol/L (137-145)
[2024-07-28 12:21] LABS: Prothrombin Time 13.2 Seconds (11.1-14.7)
[2024-07-28 12:22] LABS: Partial Thromboplastin Time 27.6 Seconds (22.3-36.8)
[2024-07-28 12:30] LABS: Troponin I < 0.012 ng/mL (0.000-0.034)
--- NOTE | 2024-07-28 12:30 | ED_ITS ---
HPI - Chest Pain General Chief Complaint: Chest Pain Stated Complaint: chest pain, during nuc med stress test Time Seen by Provider: 07/28/24 12:14 Source: patient History of Present Illness HPI narrative: 74 years old white female came to the ED from cardiac lab because of CHEST PAIN WHILE DOING THE NUCLEAR STRESS TEST. HISTORY OF ALZHEIMER, PATIENT'S IS TELLING ME THAT PATIENT BEEN HAVING INTERMITTENT CHEST PAIN FOR OVER 1 MONTH, SCHEDULE FOR RIGHT KNEE SURGERY, TODAY WHILE DOING THE NUCLEAR STRESS TEST, PATIENT DEVELOPED LEFT CHEST BURNING SENSATION, PATIENT REFERRED TO THE EMERGENCY ROOM FOR FURTHER EVALUATION. Related Data Home Medications ?Medication ?Instructions ?Recorded ?Confirmed ?Last Taken ?Type cholecalciferol (vitamin D3) 25 200 unit PO DAILY 05/24/19 07/28/24 07/28/24 History mcg (1,000 unit) capsule epinephrine 0.3 mg/0.3 mL 0.3 mg IM ONCE PRN anaphylaxis 05/24/19 07/28/24 Unknown History injection, auto-injector (EpiPen) folic acid 1 mg tablet 20 mg PO DAILY 05/25/19 07/28/24 07/28/24 History qobdhzaj-bhogmea-cdoq-lutein tablet 1 tablet PO DAILY 05/25/19 07/28/24 Unknown History vitamin B complex 1 tablet PO DAILY 05/25/19 07/28/24 Unknown History apixaban 5 mg tablet (Eliquis) 5 mg PO BID 05/11/24 07/28/24 07/28/24 History atorvastatin 40 mg tablet (Lipitor) 40 mg PO DAILY 05/11/24 07/28/24 07/28/24 History levothyroxine 25 mcg capsule 25 mcg PO DAILY 05/11/24 07/28/24 07/28/24 History losartan 25 mg tablet 25 mg PO DAILY 05/11/24 07/28/24 07/28/24 History pantoprazole 40 mg tablet,delayed 40 mg PO QHS 05/11/24 07/28/24 07/28/24 History release (Protonix) sertraline 50 mg tablet 50 mg PO DAILY 05/11/24 07/28/24 07/28/24 History rivastigmine 4.6 mg/24 hour 4.6 mg transdermal .q24 07/28/24 07/28/24 Unknown History transdermal patch Allergies Allergy/AdvReac Type Severity Reaction Status Date / Time trimethoprim Allergy Mild trimethoprim Verified 07/28/24 16:19 ([id number]) bacitracin Allergy Unknown bacitracin Verified 07/28/24 16:19 ([id number]) clarithromycin Allergy Unknown clarithromycin Verified 07/28/24 16:19 ([id number]) diphenhydramine Allergy Unknown diphenhydramine Verified 07/28/24 16:19 ([id number]) nickel Allergy Unknown Unknown Verified 07/28/24 16:19 Penicillins Allergy Unknown Penicillins Verified 07/28/24 16:19 ([id number]) pseudoephedrine Allergy Unknown pseudoephedrine Verified 07/28/24 16:19 ([id number]) silicone Allergy Unknown silicone Verified 07/28/24 16:19 ([id number]) Sulfa (Sulfonamide Allergy Unknown Sulfa Verified 07/28/24 16:19 Antibiotics) (Sulfonamide Antibiotics) ([id number]) bee venom protein (honey bee) Allergy Swelling Verified 07/28/24 16:19 cinnamon Allergy Anaphylaxis Verified 07/28/24 16:19 coconut Allergy Hives Verified 07/28/24 16:19 loratadine Allergy Insomnia Verified 07/28/24 16:19 Review of Systems 2 Review of Systems: All systems reviewed & are unremarkable except as noted in HPI and below PMFSH Past Medical History Medical History Anxiety 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 Social History Social History Smoking status: Former smoker Tobacco type: cigarettes Second hand tobacco smoke exposure: Yes Smoking end date: 04/28/82 Alcohol intake: current Drinks per week: 14 Substance use: former Substance use type: marijuana Last use: 1975 Do You Feel Safe in your Home?: Yes Lack of Transportation: YES Lack of Food: Never True Current Housing: I Have Housing Concerned About Future Housing: No Difficulty Paying Gas/Electric Bills: No Difficulty Paying for Meds: No Currently Unemployed: No Education: Master's Degree or Higher Difficulty w/ Childcare or Family Care: No Living arrangements: with family Gender identity (if verbalized by the patient): Female Spiritual care concerns: No Exam 2 Narrative: GENERAL APPEARANCE: WELL-DEVELOPED, WELL-NOURISHED SKIN: NORMAL COLOR HEAD: NORMOCEPHALIC, NONTRAUMATIC EYES: CLEAR CONJUNCTIVA ENT: OROPHARYNX NORMAL, EARS NORMAL, NOSE NORMAL NECK: SUPPLE, NONTENDER CHEST AND RESPIRATORY: AIRWAY PATENT, NO RESPIRATORY DISTRESS, NO ACCESSORY MUSCLE USE HEART: REGULAR RATE/RHYTHM ABDOMEN: SOFT, NONTENDER, NO ORGANOMEGALY, QUIET BOWEL SOUNDS VASCULAR: NORMAL PERIPHERAL PULSES, NORMAL CAPILLARY REFILL. MUSCULOSKELETAL: NORMAL RANGE OF MOTION, NONTENDER BACK NEUROLOGIC: ALERT AND ORIENTED TO HER NAME ONLY Course Consultations Consultation #1: Dr. Obrien Patient was seen by him over 5 years ago currently belong to the other cardiac group Date: 07/28/24 Consultation #2: Dr. Parra Accepted patient consult Date: 07/28/24 Vital Signs Vital signs: Vital Signs Temperature 36.4 C 07/28/24 11:30 Pulse Rate 63 07/28/24 11:30 Respiratory Rate 16 07/28/24 11:30 Blood Pressure 134/65 07/28/24 11:30 Pulse Oximetry 100 07/28/24 11:30 Oxygen Delivery Room Air 07/28/24 11:30 Temperature 37.2 C 07/28/24 19:55 Pulse Rate 59 L 07/28/24 22:00 Respiratory Rate 20 07/28/24 19:55 Blood Pressure 148/56 H 07/28/24 19:55 Pulse Oximetry 98 07/28/24 20:39 Oxygen Delivery Room Air 07/28/24 20:39 Fraction of Inspired Oxygen 21 07/28/24 20:39 MDM - Chest Pain MDM Narrative Medical decision making narrative: PATIENT BEEN HAVING INTERMITTENT CHEST PAIN FOR 1 MONTH, GOT AN EPISODE OF CHEST PAIN WHILE DOING THE NUCLEAR CARDIAC STRESS TEST PRIOR TO ARRIVAL TO THE ED VITAL SIGNS ARE STABLE PHYSICAL EXAMINATION IS UNREMARKABLE DIFFERENTIAL DIAGNOSIS INCLUDE UNSTABLE ANGINA, ACUTE NV, STRESS RELATED SYMPTOMS, GASTRITIS, ESOPHAGITIS, BLOOD WORKUP TODAY INCLUDES CBC, CMP, TROPONIN SHOWED INSIGNIFICANT ABNORMALITY CHEST X-RAY SHOWED NO ACUTE ABNORMALITY EKG ON ARRIVAL SHOWED NORMAL SINUS RHYTHM AT 61 BEATS PER MINUTE, EARLY PRECORDIAL R/S TRANSITION, BORDERLINE ST ABNORMALITY-DIFFUSE LEADS, BORDERLINE EKG, COMPARED TO EKG ON JULY 28, 2024 NO SIGNIFICANT CHANGES HEART SCORE IS 6, PATIENT TO BE ADMITTED TO HOSPITALIST, CONSULT DR. PARRA Differential Diagnosis Differential diagnosis: Likely other ( ABOVE) Medical Records Data Attestation: I reviewed the patient's medical records. Lab Data Attestation: I reviewed the patient's lab results. 07/28/24 11:52 07/28/24 11:52 Labs: Lab Results 07/28/24 07/28/24 Range/Units 11:52 14:20 WBC 7.5 (4.5-10.0) K/mm3 RBC 4.58 (4.2-5.4) M/mm3 Hgb 14.2 (12.0-15.0) g/dL Hct 42.3 (37.0-47.0) % MCV 92.4 (80-100) fl MCH 31.0 (26-34) pg MCHC 33.6 (32-36) g/dl RDW 13.1 (11.5-14.5) % Plt Count 235 (150-375) k/mm3 MPV 11.2 H (7.4-10.4) fl Immature Gran % (Auto) 0.4 (0-0.5) % Neut % (Auto) 61.2 (45.5-73.1) % Lymph % (Auto) 30.1 (18.3-44.2) % [place] % (Auto) 6.5 (2.6-8.5) % Eos % (Auto) 0.9 (0-4.4) % Baso % (Auto) 0.9 (0.2-1.2) % Lymph # (Auto) 2.26 (0.9-3.2) K/mm3 [place] # (Auto) 0.5 (0.1-0.6) K/mm3 Eos # (Auto) 0.1 (0-0.3) K/mm3 Baso # (Auto) 0.1 (0.0-0.1) K/mm3 Abs Immat Gran (auto) 0.03 (0.00-0.031) K/mm3 Absolute Neuts (auto) 4.6 (1.3-6.7) K/mm3 Absolute Nucleated RBC 0.000 (0.0-0.012) K/mm3 Nucleated RBC % 0.0 (0.0-0.2) % PT 13.2 (11.1-14.7) Seconds INR 1.0 APTT 27.6 (22.3-36.8) Seconds Sodium 139 (137-145) mmol/L Potassium 4.1 (3.4-5.0) mmol/L Chloride 103 (98-107) mmol/L Carbon Dioxide 23 (22-30) mmol/L Anion Gap 13 H (4-12) mmol/L BUN 18 H (7-17) mg/dL Creatinine 0.87 (0.7-1.0) mg/dL Estim Creat Clear Calc 47 ml/min Estimated GFR > 60 (59 - ) Glucose 95 (65-110) mg/dL Calcium 9.7 (8.4-10.2) mg/dL Total Bilirubin 0.6 (0.2-1.3) mg/dL AST 40 H (14-36) U/L ALT 33 (6-35) U/L Alkaline Phosphatase 70 (38-126) U/L Troponin I < 0.012 < 0.012 (0.000-0.034) ng/mL Total Protein 7.0 (6.3-8.2) g/dL Albumin 4.4 (3.5-5.1) g/dL Lipase 210 (23-300) U/L Imaging Data Radiologist's impression: Impressions Chest X-Ray 07/28/24 12:23 IMPRESSION: 1: NO ACUTE CARDIOPULMONARY DISEASE. ECG Data EKG #1: Attestation: I personally reviewed and interpreted this ECG as follows: ECG completion date: 07/28/24 Interpretation: Normal sinus rhythm with short CA interval at 60 beats per minute, poor R-wave progression, borderline ST T-wave abnormality, borderline EKG, compared to EKG on July 01, 2024 heart rate has increased Critical Care Time Critical Care Time Critical Care Time: No Discharge Plan Discharge Clinical Impression: Chest pain Patient Disposition: Still a Patient Condition: Stable Quality HEART score for chest pain patients History: moderately suspicious ECG: non specific repolarization disturbance/LBTB/PM Age: > or = to 65 years Risk factors: > or = to 3 risk factors of atherosclerotic disease Troponin: < or = to 1x normal limit Heart score: 6
--- OUTSIDE RECORDS SUMMARY | 2024-07-28 13:01 | XMS_ITS | Encounter Summary ---
Author Organization [facility] Healthcare Address [address] [place] [id number] Care Team Providers Care Preventive Medicine Physician Name Role Phone Hector Spivey MD Primary Care Provider [phone] Encounter Details Date Type Department Care Team (Late st Contact Info) Description 07/26/2024 Results Follow-Up [facility] Family Medicine at [address] [place] [address] Hector Spivey MD [address] [place] [phone] Social History Tobacco Use Types Packs/Day Years Used Date Smoking Tobacco: Former Cigarettes 1.3 16 Smokeless Tobacco: Never Comments:quit 1981 Alcohol Use Standard Drinks/Week Comments [...] more points, staff should administer the PHQ-9) 0 07/08/2024 Comments Unknown Sex and Gender Information Value Date Recorded Sex Assigned at Not on file Legal Sex Female 12:10 PM CDT Gender Identity Female 02/17/2023 3:21 PM CDT Sexual Orientation Not on file documented as of this encounter Plan of Treatment Not on file documented as of this encounter Visit Diagnoses Not on filedocumented in this encounter Care Teams Preventive Medicine Physician Relationship Specialty Start Date End Date Hector Spivey MD PCP - General Family Medicine 04/11/21 Dr. Sally Storm [address], [place] [phone] Family Medicine 04/06/24 documented as of this encounter
--- OUTSIDE RECORDS SUMMARY | 2024-07-28 13:01 | XMS_ITS | Encounter Summary ---
Author Organization [facility] Healthcare Address [address] [place] [address] Care Team Providers Care Route Agent Name Role Phone Hector Spivey MD Primary Care Provider [phone] Reason for Visit * Diagnostic Imaging (Routine) - Closed Specialty Diagnoses / Procedures Referred By Contac t Referred To Contact Diagnoses History of atrial fibrillation Other chest pain Preop cardiovascular exam Procedures NM MPI SPECT (Rest and/or Stress) Multiple Studies AK TC99M SESTAMIBI AK REGADENOSON INJECTION AK THERAPEUTIC PROPHYLACTIC/DX INJECTION SUBQ/IM Altaf Hogan MD [address] [address] Phone: tel: fax: [facility] Cardiology [address] [facility] [address] [place] [phone] Phone: tel: fax: Referral ID Status Reason Start Date Expiration Date Visits Re quested Visits Authorized [id number] Closed 07/19/2024 08/18/2025 1 1 Encounter Details Date Type Department Care Team (Latest Contact Info) Description 07/28/2024 7:45 AM CDT Ancillary Procedure [facility] Cardiology [facility] [address] [place] [id number] History of atrial fibrillation; Other chest pain; Preop cardiovascular exam Social History Tobacco Use Types Packs/Day Years [...] as of this encounter Plan of Treatment Pending Results Name Type Priority Associated Diagnoses Date /Time NM MPI SPECT (Rest and/or Stress) Multiple Studies Imaging Schedule Routine, Read Routine (OP Routine) History of atrial fibrillation Other chest pain Preop cardiovascular exam 07/28/2024 9:31 AM CDT documented as of this encounter Visit Diagnoses Diagnosis History of atrial fibrillation Personal history of other diseases of circulatory system Other chest pain Preop cardiovascular exam Pre-operative cardiovascular examination documented in this encounter Administered Medications Inactive Administered Medications - up to 3 most recent administrations Medication Order MAR Action Action Date Dose Rate Site regadenoson (LEXISCAN) 0.4 mg/5 mL injection 0.4 mg 0.4 mg, intravenous, Once, On Fri07/28/24 at 1015, For 1 dose, Administer IV push over 10 seconds., Indications: Myocardial Perfusion Imaging AdjunctIndications:Myocard ial Perfusion Imaging Adjunct Given 07/28/2024 9:31 AM CDT 0.4 mg Tc-99m sestamibi unit dose injection 25.8 millicurie 25.8 millicurie, intravenous, Once in imaging, radiopharmaceutical, Starting on Fri07/28/24 at 0931, For 1 dose, Indications: Diagnostic RadiographyIndications:Saida gnostic Radiography Given 07/28/2024 9:31 AM CDT 25.8 millicuries Tc-99m sestamibi unit dose injection 8.8 millicurie 8.8 millicurie, intravenous, Once in imaging, radiopharmaceutical, Starting on Fri07/28/24 at 0839, For 1 dose, Indications: Diagnostic RadiographyIndications:Saida gnostic Radiography Given 07/28/2024 8:39 AM CDT 8.8 millicuries documented in this encounter Care Teams Route Agent Relationship Specialty Start Date End Date Hector Spivey MD PCP - General Family Medicine 04/11/21 Dr. Sally Storm [address], [place] [phone] Family Medicine 04/06/24 documented as of this encounter
--- OUTSIDE RECORDS SUMMARY | 2024-07-28 13:01 | XMS_ITS | Clinical Summary ---
Author Organization [facility] Virtual Care Address [address] [place] [phone] Phone Care Team Providers Care Public Health Representative Name Role Phone Hector Spivey MD Primary Care Provider [phone] Allergies Active Allergy Reactions Criticality Noted Date Comments Venom-Honey Bee Swelling Medium 02/15/2019 Diphenhydramine Hives Medium 02/15/2019 Clarithromycin Hives Medium 02/15/2019 Loratadine Other (See comments) Low 02/15/2019 insomnia Coconut Other (See comments) Low 02/15/2019 hives Levofloxacin Rash Medium 02/15/2019 Insomnia Penicillins Hives,Swelling Medium 02/15/2019 Silicon Rash Medium 02/15/2019 Sulfa (Sulfonamide Antibiotics) Hives,Swelling Medium 02/15/2019 Trimethoprim Hives Medium 02/15/2019 Medications EPINEPHrine 0.3 mg/0.3 mL auto-injectio n syringeIndica tions:Anaphyl axis Inject 0.3 mL (0.3 mg total) into the muscle as instructed as needed for anaphylaxis Active cyanocobalami n (Vitamin B-12) 500 mcg tablet Active multivit-min/ ferrous fumarate (MULTI VITAMIN ORAL) Active cholecalcifer ol, vitamin D3, (VITAMIN D3 ORAL) Active folic acid 20 mg capsule Active losartan (COZAAR) 25 mg tablet Take 1 tablet (25 mg total) by mouth daily Active loratadine 10 mg capsule Take by mouth Activ e denosumab (PROLIA) 60 mg/mL syringe q 6 mo 1 mL 5 04/11/20 21 Active atorvastatin (LIPITOR) 40 mg tablet Take 1 tablet (40 mg total) by mouth daily 01/06/20 23 Active levothyroxine (SYNTHROID) 25 mcg tablet Take 1 tablet (25 mcg total) by mouth daily 01/07/20 23 Active sertraline (ZOLOFT) 50 mg tablet 1/2 NIGHTLY 02/05/20 23 Active apixaban (ELIQUIS) 5 mg tablet Take 1 tablet (5 mg total) by mouth 2 (two) times a day Active pantoprazole DR (PROTONIX) 40 mg EC tablet Take 1 tablet (40 mg total) by mouth daily Active calcium carbonate-vit werner D3 1,500 mg (600 mg elemental)-20 0 unit capsule Take 1 tablet by mouth daily Active vitamin E 1,000 unit capsule Take 1 capsule (1,000 Units total) by mouth daily Active magnesium gluconate 200 mg tabletIndicat ions:hypomagn esemia Take 1 tablet (200 mg total) by mouth daily Active omega-3 fatty acids-fish oil 300-1,000 mg capsule Take 1 capsule (1 g total) by mouth daily Active rivastigmine (EXELON) 4.6 mg/[address] 4.6 mg on the skin daily for 24 hours 30 patch 3 07/21/19 25 026 Active FLUoxetine (PROzac) 10 mg tablet/capsul e Take 1 tablet/capsule (10 mg total) by mouth daily 025 Discontinued( erapy completed) fluticasone propionate (FLONASE) 50 mcg/actuation nasal sprayIndicati ons:Sinus congestion Administer 2 sprays into each nostril daily 16 g 3 07/12/19 20 025 Discontinued calcium carbonate-vit werner D3 1,250mg (500mg elemental) - 5 mcg (200 units) per tablet 025 Discontinued(Ot her) albuterol HFA (PROVENTIL HFA,VENTOLIN HFA,PROAIR HFA) 90 mcg/actuation inhaler INHALE 2 PUFFS EVERY 4 - 6 HOURS NEEDED FOR SHORTNESS OF BREATH OR WHEEZING FOR 30 DAYS. 04/20/20 22 025 Discontinued donepeziL (ARICEPT) 10 mg tablet Take 1 tablet (10 mg total) by mouth nightly Restarted 5-6 months ago mid 2023 when started FODMAP diet. 025 Discontinued BUPivacaine (MARCAINE) 0.5 % (5 mg/mL) injection Take 2 mL by injection route. 09/04/19 025 Discontinued( erapy completed) cefdinir (OMNICEF) 300 mg capsule Take 1 capsule (300 mg total) by mouth every 12 (twelve) hours 025 Discontinued( erapy completed) cephalexin (KEFLEX) 500 mg capsule Take 1 capsule (500 mg total) by mouth every 12 (twelve) hours 025 Discontinued( erapy completed) methylPREDNIS olone acetate (DEPO-MedroL) 40 mg/mL injection Take 80 mg by injection route. 09/04/19 025 Discontinued( erapy completed) rivastigmine (EXELON) 4.6 mg/[address] 4.6 mg on the skin daily 30 patch 1 07/08/19 025 Discontinued(Re order) rivastigmine (EXELON) 4.6 mg/[address] 4.6 mg on the skin daily 30 patch 1 07/08/19 025 Discontinued donepeziL (ARICEPT) 10 mg tablet Take 1 tablet (10 mg total) by mouth nightly 025 Discontinued Active Problems Problem Noted Date Diagnosed Date Other chest pain 07/19/2024 Gastroesophageal reflux disease 07/08/2024 Major depressive disorder wi single episode, in full remission 07/08/2024 Osteoarthritis of right knee 09/04/2023 Preop cardiovascular exam 12/28/2022 Late onset Alzheimer's demen tia without behavioral disturbance 08/06/2022 Memory loss 08/02/2022 Thyroid nodule 05/16/2021 Tinnitus of both ears 04/18/2021 Chorda tympani disorder 04/18/2021 Essential hypertension 04/11/2021 Osteoporosis 02/15/2019 History of atrial fibrillation 02/15/2019 History of cervical cancer 02/15/2019 AVELINO (generalized anxiety disorder) 02/15/2019 Pulmonary nodule 02/15/2019 Resolved Problems Problem Noted Date Diagnosed Date Resolved Date Thumb pain 03/25/2017 07/08/2024 Encounters Date Type Department Care Team Description 07/28/2024 7:45 AM CDT Ancillary Procedure [facility] Medical Group Cardiology [address] [place] [address] History of atrial fibrillation; Other chest pain; Preop cardiovascular exam 07/26/2024 7:56 AM CDT - 07/26/2024 11:59 PM CDT Hospital Encounter [facility] Medical Office Bldg 1 [facility] [address] [place] [address] Post-menopausal Discharge Disposition: Discharge to home or self care 07/26/2024 Results Follow-Up [facility] Family Medicine at [address] [place] [address] Hector Spivey MD 07/20/2024 Orders Only [facility] [address] [place] [address] Kristin Navarrete NP 07/19/2024 9:00 AM CDT Office Visit [facility] Medical [facility] Cardiology [address] [place] [address] Altaf Hogan MD History of atrial fibrillation (Primary Dx); Essential hypertension; Other chest pain; Preop cardiovascular exam 07/08/2024 9:00 AM CDT Office Visit [facility] Family Medicine at [address] [place] [phone] Lisette Bauman PA Primary osteoarthritis of right knee (Primary Dx); Age-related osteoporosis without current pathological fracture; Late onset Alzheimer's dementia without behavioral disturbance (HCC); Major depressive disorder with single episode, in full remission; Gastroesophageal reflux disease, unspecified whether esophagitis present; Essential hypertension; History of atrial fibrillation; Hypothyroidism, unspecified type; Post-menopausal 07/07/2024 Orders Only [facility] [address] [place] [address] Kristin Navarrete NP 07/06/2024 2:45 PM CDT Office Visit [facility] [address] 6[address] [place] [address] Navarrete, Kristin Jayshree, RECONCILIATION MACHINE OPERATOR Late onset Alzheimer's dementia without behavioral disturbance (HCC) (Primary Dx) 05/28/2024 9:15 AM ASSEMBLY 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 SUPERVISOR Ancillary Procedure [facility] Mobile MRI [address] [place] [address] Right knee pain, unspecified chronicity 05/12/2024 Orders Only [facility] Information Management [address] [place] [address] Scanning, Provider from Last 3 Months Immunizations Immunization Administration Dates Next Due Influenza, Quadrivalent, Hig h Dose, Preservative Free, Intrr 02/03/2023 Influenza, Trivalent, High D ose, Split, Preservative Free, Intramuscular 03/27/2017,01/05/2016 Influenza, Unspecified 01/27/2024,2021,01/26/2021,01/06 Pneumococcal Conjugate PCV 13 11/13/2016 Pneumococcal Polysaccharide PPV23 11/22/2015,04/2010 Tdap 05/06/2016 ZOSTER Recombinant 04/14/2019,03/20/2019, 019 Surgical History Surgery Date Site/Laterality Comments MD TONSILLECTOMY & ADENOIDEC MALOU <AGE 12 Tonsillectomy With Adenoidectomy - (Added by TW Conv) MD CONIZATION CERVIX W/WO D& C RPR KNIFE/LASER Cervical Conization - (Added by TW Conv) MD LAPS TX ECTOPIC PREG W/O SALPING&/OOPHORECTOMY Laparoscopy With Excision Of Ectopic - (Added by TW Conv) MD NEUROPLASTY &/TRANSPOS ME SOLANGE NRV CARPAL TUNNE [...] ntar fasciitis - (Added by TW Conv) Chest pain Atrial fibrillation (HCC) Family History Medical History Relation Name Comments [...] 16 Smokeless Tobacco: Never Tobacco Cessation:Counseling Given: Not Answered Comments:quit 1981 Alcohol Use Standard Drinks/Week Comments [...] Sign Reading Time Taken Comments Blood Pressure 120/64 07/19/2024 9:03 AM CDT Pulse 71 07/19/2024 9:03 AM CDT Temperature 36.4 C (97.6 F) 07/08/2024 9:00 AM CDT Respiratory Rate 18 07/08/2024 9:00 AM CDT Oxygen Saturation 97% 07/19/2024 9:03 AM CDT Inhaled Oxygen Concentration - - Weight 62.4 kg (137 lb 9.6 oz) 07/19/2024 9:03 A M CDT Height 160 cm (5' 3 ) 07/19/2024 9:03 AM CDT Body Mass Index 24.37 07/19/2024 9:03 AM CDT Plan of Treatment Health Maintenance Due Date Last Done Comments Hepatitis C Screening 1950 Hepatitis B Screening 1967 Well Visit 65+ 05/16/2023 05/16/2022 Depression Screening 07/08/2025 07/08/2024, 05/16/2022, 05/16/2021, Additional history exists Fall Risk Assessment 07/08/2025 07/08/2024, 05/16/2022, 05/16/2021, Additional history exists DTaP/Tdap/Td Vaccine (2 - Td or Tdap) 05/06/2026 05/06/2016 Colon Cancer Screening-Colonoscopy 06/05/2026 06/05/2016 Osteoporosis Screening-Bone Density Scan 07/26/2026 07/26/2024 Colon Cancer Screening-CT Colonography Discontinued 06/05/2016 Colon Cancer Screening-DNA Stool Discontinued 06/05/19 Colon Cancer Screening-FIT Discontinued 06/05/2016 Colon Cancer Screening-Sigmoidoscopy Discontinued 06/05/2016 Pneumococcal vaccine 65+ Completed 017, 11/22/2015, 04/28/2010 Breast Cancer Screening-Mammogram Discontinued 019, 06/26/2018 Zoster Vaccine Completed 04/14/2019, 02/27, 12/18/2018 Influenza Vaccine Completed 01/27/2024, , 03/07/2022, Additional history exists Procedures Procedure Name Priority Date/Time Associated Diagnosis Comments DEXA AXIAL SKELETON BONE DENSITY 1 OR MORE SITES Schedule Routine, Read Routine (OP Routine) 07/26/2024 8:48 AM CDT Post-menopausal ELECTROCARDIOGRAM REPORT Routine 07/19/2024 2:36 PM CDT Other chest pain Preop cardiovascular exam POCT LIPID PANEL Routine 07/19/2024 9:24 AM CDT Essential hypertension SCAN - LABS 07/01/2024 MRI KNEE RIGHT WO CONTRAST Schedule Routine, Read Routine (OP Routine) 05/28/2024 9:11 AM ASSEMBLY ROOM SUPERVISOR Right knee pain, unspecified chronicity SCAN - OTHER ORDERS 05/12/2024 HM MAMMOGRAPHY Routine 06/26/2018 COLONOSCOPY Routine 06/05/2016 from Last 3 Months or Most Recently Relevant to Health Maintenance Results * Dexa Axial Skeleton Bone Density 1 Or 2 Site (07/26/2024 8:48 AM CDT) Anatomical Region Laterality Modality Body N/A Mammography 07/26/2024 11:0 6 PM CDT Narrative 07/26/2024 11:07 PM CDT EXAM DESCRIPTION: DEXA AXIAL SKELETON BONE DENSITY 1 OR MORE SITES REASON FOR STUDY: 74 y/o year old F with given history of: 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 CLINICAL INFORMATION: Current height: 63.5 inches Maximum height: 64 inches Weight: 134 pounds Risk factors: Postmenopausal COMPARISON: None available FINDINGS: AP LUMBAR SPINE L1-L4: Total BMD is 0.822 g/cm2 T-score is -2.0 LEFT HIP: Total BMD is 0.728 g/cm2 T-score is -1.8 Femoral neck BMD is 0.577 g/cm2 T-score is -2.5 FRAX: FRAX not reported due to T-scores of hip, femoral neck and/or spine being at or below -2.5 (Osteoporosis). IMPRESSION: Osteoporosis. REFERENCE: Bone mineral density: T-Score: Normal (T-score above or = -1.0) Low bone mass (T-score between -1.0 and -2.5) replaces the previously used term osteopenia Osteoporosis (T-score = or below -2.5) Z-Score: Within the expected range for age (Z-score above -2.0) Below the expected range for age (Z-score is -2.0 or below) Please see below follow up recommendations. Medical evaluation for secondary causes of low bone mineral density may be appropriate. FRAX is a World Health Organization validated fracture risk assessment tool that calculates a person's 10 year probability of a major osteoporosis related fracture and hip fracture. According to the National Osteoporosis Foundation guidelines, postmenopausal women and men age 50 or older with low bone mass and a 10 year probability of a major osteoporosis related fracture = or greater than 20% or a 10 year probability of a hip fracture = or greater than 3% should be considered for pharmacological treatment for the prevention of osteoporosis. For further information, including treatment recommendations, please refer to the 2019 ISCD Official Positions (http://www.iscd.org) and the NOF's Clinician's Guide to Prevention and Treatment of Osteoporosis (http://www.nof.org/professionals/clinical-guidelines) THIS IS AN ELECTRONICALLY VERIFIED FINAL REPORT 07/26/2024 11:07 PM - Electronically signed by Lucian Cid M.D. 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 CLINICAL INFORMATION: Current height: 63.5 inches Maximum height: 64 inches Weight: 134 pounds Risk factors: Postmenopausal COMPARISON: None available FINDINGS: AP LUMBAR SPINE L1-L4: Total BMD is 0.822 g/cm2 T-score is -2.0 LEFT HIP: Total BMD is 0.728 g/cm2 T-score is -1.8 Femoral neck BMD is 0.577 g/cm2 T-score is -2.5 FRAX: FRAX not reported due to T-scores of hip, femoral neck and/or spine beingat or below -2.5 (Osteoporosis). IMPRESSION: Osteoporosis. REFERENCE: Bone mineral density: T-Score: Normal (T-score above or = -1.0) Low bone mass (T-score between -1.0 and -2.5) replaces thepreviously used term osteopenia Osteoporosis (T-score = or below -2.5) Z-Score: Within the expected range for age (Z-score above -2.0) Below the expected range for age (Z-score is -2.0 or below) Please see below follow up recommendations. Medical evaluation forsecondary causes of low bone mineral density may be appropriate. FRAX is a World Health Organization validated fracture risk assessmenttool that calculates a person's 10 year probability of a major osteoporosisrelated fracture and hip fracture. According to the National OsteoporosisFoundation guidelines, postmenopausal women and men age 50 or older with low bonemass and a 10 year probability of a major osteoporosis related fracture = or greater than 20% or a 10 year probability of a hip fracture = or greaterthan 3% should be considered for pharmacological treatment for the preventionof osteoporosis. For further information, including treatment recommendations, please referto the 2019 ISCD Official Positions (http://www.iscd.org) and the NOF's Clinician's Guide to Prevention and Treatment of Osteoporosis (http://www.nof.org/professionals/clinical-guidelines) THIS IS AN ELECTRONICALLY VERIFIED FINAL REPORT 07/26/2024 11:07 PM - Electronically signed by Lucian Cid M.D. MF: [email or web address] Report ID: [id number] Reading Location: [place] [address] us Lisette Coley IMKody DXA PROCEDURES Final Result * Electrocardiogram Report (07/19/2024 2:36 PM CDT) us Altaf Hogan MD ECG ORDERABLES Lexi l Result * POCT lipid panel (07/19/2024 9:24 AM CDT) [facility] Cholesterol, POC 172 mg/dL Comment:GLU = 97 HDL, POC 77 mg/dL Triglycerides, POC 207 mg/dL LDL Cholesterol POC 53 mg/dL Chol/HDL Ratio, POC 0.7 Non-HDL Cholesterol, POC 95 mg/dL Cholesterol Total, POC 172 mg/dL Capillary blood 07/19/2024 9 :24 AM CDT us Altaf Hogan MD POINT OF CARE TEST O RDERABLES Final Result * SCAN - LABS (07/01/2024) us Hector Spivey MD Final Result * MRI Knee Right WO Contrast (05/28/2024 9:11 AM ASSEMBLY ROOM SUPERVISOR) Anatomical Region Laterality Modality Lower Extremities Right Magnetic Reson ance 05/28/2024 12:1 5 PM ASSEMBLY ROOM SUPERVISOR Impressions 05/28/2024 3:38 PM ASSEMBLY ROOM SUPERVISOR 1. No meniscal tear. 2. Moderate to [...] Miguel Lamar M.D. Narrative 05/28/2024 3:38 PM ASSEMBLY ROOM SUPERVISOR EXAMINATION: 1. MRI KNEE RIGHT WO CONTRAST [...] Recently Relevant to Health Maintenance Insurance MEDICARE [facility] MEDICARE [facility] MEDICARE [facility] Care Teams Public Health Representative Relationship Specialty Start Date End Date Hector Spivey MD PCP - General Family Medicine 04/11/21 Dr. Sally Storm [address], [place] [phone] Family Medicine 04/06/24
--- OUTSIDE RECORDS SUMMARY | 2024-07-28 13:01 | XMS_ITS | Continuity of Care Document ---
Author Organization [facility] Address [address] [place] [address] Phone Care Team Providers Care Community Service Organization Director Name Role Phone Michael MICHEL, Les Unavailable [...] Diagnoses Date Provider Providers Copied on Encounter [facility], [address], [place], [address], [place] tel:[phone] Interior Office 1 No Information 4 Michael Saldana. [address], [facility], [place], [place], [id number] , [place]. tel: [phone] OFFICE/OUTPAT IENT VISIT EST [facility], [address], [place], [address], [place] tel: [phone] Interior Office 1 Atrial Fibrillation 4 Michael Saldana. [address], [facility], [place], [place], [id number] , [place]. tel: [phone] Referring Provider: Les Rodriguez MD, [address] [facility], [place], [address] . tel:[phone] OFFICE/OUTPAT IENT VISIT, EST [facility], [address], [place], [address], [place] tel: [phone] Interior Office Atrial Fibrillation 3 Michael Saldana. [address], [facility], [place], [place], [id number] , [place]. tel: [phone] [facility], [address], [place], [address], [place] tel: [phone] [facility] No Information 1 Narendra Tamayo . [address], [facility], [place], [address], [place]. tel: [phone] Referring Provider: Les Rodriguez MD, [address] [facility], [place], [address] . tel:[phone] OFFICE/OUTPAT IENT VISIT, EST [facility], [address], [place], [address], [place] tel: [phone] Interior Office Chest PainAbnormal Stress TestAtrial Fibrillation 1 Michael Saldana. [address], [facility], [place], [place], [id number] , [place]. tel: [phone] Referring Provider: Les Rodriguez MD, [address] [facility], [place], [address] . tel:[phone] OFFICE/OUTPAT IENT VISIT, EST [facility], [address], [place], [address], [place] tel: [phone] Interior Office Atrial Fibrillation Nov-0 201 0 Michael Saldana. [address], [facility], [place], [place], [id number] , [place]. tel: [phone] Referring Provider: Les Rodriguez MD, [address] [facility], [place], [address] . tel:[phone] OFFICE/OUTPAT IENT VISIT, EST [facility], [address], [place], [address], [place] tel: [phone] [facility] Office1 Atrial FibrillationChest Pain 0 Michael Saldana. [address], [facility], [place], [place], [id number] , [place]. tel: [phone] Referring Provider: Les Rodrgiuez MD, [address] [facility], [place], [address] . tel:[phone] [facility], [address], [place], [address], [place] tel: [phone] Interior Office No Information 0 Michael Saldana. [address], [facility], [place], [place], [id number] , [place]. tel: [phone] Referring Provider: Les Rodriguez MD, [address] [facility], [place], [address] . tel:[phone] OFFICE CONSULTATION [facility], [address], [place], [address], [place] tel: [phone] Interior Office Atrial FibrillationHypokal emiaHypothyroidism 201 0 Michael Saldana. [address], [facility], [place], [place], [id number] , [place]. tel:[phone] Family History Family Member Type Diagnosis Age At Onset No Information Payers Payer name Insurance type Covered republican ID Angie fall(mary) Michel [id number] Social History Type Description Quantity Date Captured [...]
--- OUTSIDE RECORDS SUMMARY | 2024-07-28 13:01 | XMS_ITS | Clinical Summary ---
Author Organization [facility] Address [address] [place] [address] Phone Care Team Providers Care Scoreboard Operator Name Role Phone Provider, Unknown Primary Care [...] Due Date Last Done Comments Hepatitis C Virus (HCV) Screening 1950 Colonoscopy 1994 Colorectal Cancer Screening 1994 Cologuard 1999 Immunochemical Fecal Occult Blood 1999 Zoster Immunization (2 of 3) 06/23/2009 04/28/2009 Pneumococcal Immunization (5 0+ years) (2 of 2 - PCV) 11/20/2016 11/21/2015, 04/28/2010 Influenza Immunization (#1) 12/28/202302/28, 01/05/2016, 01/07/2014 SARS-COV-2 Immunization ( - 2023- season) 2023 Respiratory Syncytial Virus [...] age to complete this topic Insurance MEDICARE [facility] Care Teams Scoreboard Operator Relationship Specialty Start Date End Date Provider, Unknown UNKNOWN PCP - General 12/31/17
--- OUTSIDE RECORDS SUMMARY | 2024-07-28 13:01 | XMS_ITS | Referral Summary ---
Author Organization [facility] Virtual Care Address [address] [place] [phone] Phone Care Team Providers Care Physical Security Manager Name Role Phone Hector Spivey MD Primary Care Provider [phone] Encounters Date Type Department Care Team Description 07/28/2024 7:45 AM CDT Ancillary Procedure [facility] Cardiology [facility] [address] [place] [address] History of atrial fibrillation; Other chest pain; Preop cardiovascular exam 07/26/2024 Results Follow-Up [facility] Family Medicine at [address] [place] [phone] Hector Spivey MD 07/26/2024 7:56 AM CDT - 07/26/2024 11:59 PM CDT Hospital Encounter [facility] Bldg 1 Breast [facility] [address] [facility] [address] [place] [address] Post-menopausal Discharge Disposition: Discharge to home or self care 07/20/2024 Orders Only [facility] [address] [facility] 6th [address] [place] [address] Kristin Navarrete NP 07/19/2024 9:00 AM CDT Office Visit [facility] Cardiology [address] [place] [address] Altaf Hogan MD History of atrial fibrillation (Primary Dx); Essential hypertension; Other chest pain; Preop cardiovascular exam 07/08/2024 9:00 AM CDT Office Visit [facility] Family Medicine at [address] [place] [address] Lisette Bauman PA Primary osteoarthritis of right knee (Primary Dx); Age-related osteoporosis without current pathological fracture; Late onset Alzheimer's dementia without behavioral disturbance (HCC); Major depressive disorder with single episode, in full remission; Gastroesophageal reflux disease, unspecified whether esophagitis present; Essential hypertension; History of atrial fibrillation; Hypothyroidism, unspecified type; Post-menopausal 07/07/2024 Orders Only [facility] [address] [facility] 6th [address] [place] [address] Kristin Navarrete NP 07/06/2024 2:45 PM CDT Office Visit [facility] [address] [facility] 6[address] [place] [address] Kristin Navarrete NP Late onset Alzheimer's dementia without behavioral disturbance (HCC) (Primary Dx) 05/28/2024 9:15 AM HAM SMOKER Ancillary Procedure [facility] Mobile MRI [address] [place] [address] Right knee pain, unspecified chronicity 05/12/2024 Orders Only [facility] Health Information Management [address] [place] [address] Scanning, Provider from Last 3 Months Allergies Active Allergy [...] 2 mL by injection route. 09/04/19 025 Discontinued(Th erapy completed) cefdinir (OMNICEF) 300 mg capsule Take 1 capsule (300 mg total) by mouth every 12 (twelve) hours 025 Discontinued( erapy completed) cephalexin (KEFLEX) 500 mg capsule Take 1 capsule (500 mg total) by mouth every 12 (twelve) hours 025 Discontinued( erapy completed) methylPREDNIS olone acetate (DEPO-MedroL) 40 mg/mL injection Take 80 mg by injection route. 09/04/19 24 025 Discontinued(Th erapy completed) rivastigmine (EXELON) 4.6 mg/[address] 4.6 mg on the skin daily 30 patch 1 07/08/19 25 025 Discontinued(Re order) rivastigmine (EXELON) 4.6 mg/[address] 4.6 mg on the skin daily 30 patch 1 07/08/19 025 Discontinued donepeziL (ARICEPT) 10 mg tablet Take 1 tablet (10 mg total) by mouth nightly 025 Discontinued Active Problems Problem Noted Date Diagnosed Date Other chest pain 07/19/2024 Gastroesophageal reflux disease 07/08/2024 Major depressive disorder wi th single episode, in full remission 07/08/2024 Osteoarthritis [...] Date Resolved Date Thumb pain 03/25/2017 07/08/2024 Immunizations Immunization Administration Dates Next Due Influenza, [...] Never Tobacco Cessation:Counseling Given: Not Answered Comments:quit 1982 Alcohol Use Standard Drinks/Week Comments [...] 07/19/2024 9:03 AM CDT Plan of Treatment Not on file Procedures [...] Read Routine (OP Routine) 05/28/2024 9:11 AM HAM SMOKER Right knee pain, unspecified chronicity SCAN - [...] F with given history of: 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 [facility] of low bone mineral density may [...] Lucian Cid M.D. MF: MEI Report ID: [id number] Reading Location: [place] [address] Lisette Coley IMG DXA PROCEDURES Final Result * Electrocardiogram Report (07/19/2024 2:36 PM CDT) Altaf Hogan MD ECG ORDERABLES Lexi l Result * POCT lipid panel (07/19/2024 9:24 AM CDT) Cholesterol, POC 172 mg/dL Comment:GLU = 97 HDL, POC 77 mg/dL Triglycerides, POC 207 mg/dL LDL Cholesterol POC 53 mg/dL Chol/HDL Ratio, POC 0.7 Non-HDL Cholesterol, POC 95 mg/dL Cholesterol Total, POC 172 mg/dL Capillary blood 07/19/2024 9 :24 AM CDT Altaf Hogan MD POINT OF CARE TEST O RDERABLES Final Result * SCAN - LABS (07/01/2024) Hector Spivey MD Final Result * MRI Knee Right WO Contrast (05/28/2024 9:11 AM HAM SMOKER) Anatomical Region Laterality Modality Lower Extremities Right Magnetic Reson ance 05/28/2024 12:1 5 PM HAM SMOKER Impressions 05/28/2024 3:38 PM HAM SMOKER 1. No meniscal tear. 2. 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 No insufficiency fracture. Dictated by: Cedricklizbet Parker M.D. The radiology attending physician has personally reviewed this study, and had reviewed and/or edited this written report and agrees with it. Electronically signed by: Miguel Lamar M.D. Narrative 05/28/2024 3:38 PM HAM SMOKER EXAMINATION: 1. MRI KNEE RIGHT WO CONTRAST [...] it. Electronically signed by: Miguel Lamar M.D. Result [facility] Fredrick Dow MD IMG MRI PROCEDURES Final Res ult * SCAN - OTHER ORDERS (05/12/2024) Provider Scanning Final Result * MAMMOGRAPHY (06/26/2018) Mammogram Normal Historical Provider HEALTH MAINTENANCE Final Result * (ABNORMAL) Colonoscopy (06/05/2016) Anatomical Region Laterality Modality Other Historical Provider ENDOSCOPY PROCEDURES Lexi l Result from Last 3 Months or Most Recently Relevant to Health Maintenance Insurance MEDICARE [facility] Member Subscriber Plan / Payer (Ef fective 2019-) Name:Chrissy Stanley Марина Relation to Subscriber:Self Name:Chrissy Stanley Payer ID:[id number] Group ID:Not on file Type:[employer] Address: [place] [id number] [facility] MEDICARE [facility] Address: [facility] [address] [place] [address] [facility] Care Teams Physical Security Manager Relationship Specialty Start Date End Date Hector Spivey MD PCP - General Family Medicine 04/11/21 Dr. Sally Storm [address], [place] [address] Family Medicine 04/06/24
--- OUTSIDE RECORDS SUMMARY | 2024-07-28 13:01 | XMS_ITS | Encounter Summary ---
Author Organization [facility] Healthcare Address [address] [place] [address] Care Team Providers Care Pocket Stitcher Name Role Phone Hector Spivey MD Primary Care Provider Reason for Referral * Diagnostic Imaging (Routine) - Closed Specialty Diagnoses / Procedures Referred By Contac t Referred To Contact Diagnoses Post-menopausal Procedures Dexa Axial Skeleton Bone Density 1 Or 2 Site Lisette Bauman PA Phone: tel: fax: [address] [phone] Referral ID Status Reason Start Date Expiration Date Visits Re quested Visits Authorized [id number] Closed 07/08/2024 08/07/2025 1 1 Reason for Visit * Diagnostic Imaging (Routine) - Closed Specialty Diagnoses / Procedures Referred By Contac t Referred To Contact Diagnoses Post-menopausal Procedures Dexa Axial Skeleton Bone Density 1 Or 2 Site Lisette Bauman PA Phone: tel: fax: [address] [address] Referral ID Status Reason Start Date Expiration Date Visits Re quested Visits Authorized [id number] Closed 07/08/2024 08/07/2025 1 1 Encounter Details Date Type Department Care Team (Latest Contact Info) Description 07/26/2024 7:56 AM CDT - 07/26/2024 11:59 PM CDT Hospital Encounter [facility] [place] Medical Office Bldg 1 [facility] [address] [facility] [address] [place] [address] Post-menopausal Discharge Disposition: Discharge to home or self care Social History Tobacco Use Types Packs/Day Years [...] on file documented as of this encounter Medications at Time of Discharge apixaban (ELIQUIS) 5 mg tablet Take 1 tablet (5 mg total) by mouth 2 (two) times a day atorvastatin (LIPITOR) 40 mg tablet Take 1 tablet (40 mg total) by mouth daily 01/05/2023 calcium carbonate-vitami n D3 1,500 mg (600 mg elemental)-200 unit capsule Take 1 tablet by mouth daily cholecalciferol, vitamin D3, (VITAMIN D3 ORAL) cyanocobalamin (Vitamin B-12) 500 mcg tablet denosumab (PROLIA) 60 mg/mL syringe q 6 mo 1 mL 5 04/11/2021 EPINEPHrine 0.3 mg/0.3 mL auto-injection syringeIndicatio ns:Anaphylaxis Inject 0.3 mL (0.3 mg total) into the muscle as instructed as needed for anaphylaxis folic acid 20 mg capsule levothyroxine (SYNTHROID) 25 mcg tablet Take 1 tablet (25 mcg total) by mouth daily 01/06/2023 loratadine 10 mg capsule Take by mouth losartan (COZAAR) 25 mg tablet Take 1 tablet (25 mg total) by mouth daily magnesium gluconate 200 mg tabletIndication s:hypomagnesemia Take 1 tablet (200 mg total) by mouth daily multivit-min/antonio nataliya fumarate (MULTI VITAMIN ORAL) omega-3 fatty acids-fish oil 300-1,000 mg capsule Take 1 capsule (1 g total) by mouth daily pantoprazole DR (PROTONIX) 40 mg EC tablet Take 1 tablet (40 mg total) by mouth daily rivastigmine (EXELON) 4.6 mg/[address] 4.6 mg on the skin daily for 24 hours 30 patch 3 07/20/2024 sertraline (ZOLOFT) 50 mg tablet 1/2 NIGHTLY 02/04/2023 vitamin E 1,000 unit capsule Take 1 capsule (1,000 Units total) by mouth daily documented as of this encounter Discharge Disposition Disposition Code Departure Means Destination Discharge to home or self care documented in this encounter Plan of Treatment Not on file documented as of this encounter Procedures Procedure Name Priority Date/Time Associated Diagnosis Comments DEXA AXIAL SKELETON BONE DENSITY 1 OR MORE SITES Schedule Routine, Read Routine (OP Routine) 07/26/2024 8:48 AM CDT Post-menopausal documented in this encounter Results * Dexa Axial Skeleton Bone Density 1 Or 2 Site (07/26/2024 8:48 AM CDT) Anatomical Region Laterality Modality Body N/A Mammography 07/26/2024 11:0 6 PM CDT Narrative 07/26/2024 11:07 PM CDT EXAM DESCRIPTION: DEXA AXIAL SKELETON BONE DENSITY 1 OR MORE SITES REASON FOR STUDY: 74 y/o year old F with given history of: 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 MF: MEI Report ID: [id number] Reading Location: [place] [address] Lisette Coley IMG DXA PROCEDURES Final Result documented in this encounter Visit Diagnoses Diagnosis Post-menopausal Asymptomatic postmenopausal status (age-related) (natural) documented in this encounter Care Teams Pocket Stitcher Relationship Specialty Start Date End Date Hector Spivey MD PCP - General Family Medicine 04/11/21 Dr. Sally Storm [address], [place] [id number] Family Medicine 04/06/24 documented as of this encounter
--- OUTSIDE RECORDS SUMMARY | 2024-07-28 13:02 | XMS_ITS | Data Portability ---
Author Organization [facility] Dorene TEIXEIRA [employer] Address [address] [place] [address] Care Team Providers Care Statistical Machine Mechanic Name Role Phone MITCHELL RONQUILLO Primary Care Provider Assessment Encounter Date Assessment Date Assessment LastModified by Organization Details LastModified Time 09/04/2023 09/04/2023 Chrissy presents f or evaluation of her right knee. States her right knee pains been ongoing for approximately 2 months. She presents with her who is at the bedside. Her and her spend their winter months in [facility]. She endorses pain in the anterior [...] I did review the patient's x-rays from [facility] dated 08/29/2023 with her and her at [...] knee. All of her questions were answered. [facility] Not available 09/04/2023 09:25:20 Plan of Treatment Reminders Order Date Submit Date Provider Last Modified By Organization Details Last Modified Time Details Appointments None recorded. Lab None recorded. Referral None recorded. Procedures None recorded. Surgeries None recorded. Imaging None recorded. Medication Orders lidocaine HCl 10 mg/mL (1 %) injection solution [address] [facility][id number], [address] [place], [address], 4 09:10:34 bupivacai ne (PF) 0.5 % (5 mg/mL) injection solution [address] [facility][id number], [address] [place], [address], 4 09:10:34 Depo-Medr ol 40 mg/mL suspensio n for injection [address] [facility][id number], [address] [place], [address], 09:10:34 Patient TargetsNo targets recorded. Patient InstructionsNo instructions recorded. Reason for Referral None Reported. Problems Name Problem SNOMED Code Status Onset Date Resolution Date Notes Provider Name and Address Organization Details Recorded Time Osteoarthri tis of right knee joint [id number] 00 Active 2023 MARYLIN Goyal [address] [place], [address], [facility] 09:21:14 Problem Notes None recorded. Procedures Surgical History Date Name Laterality Status Provider Name and Address Organization Details Recorded Time Cortisone Inj w/ - Large Joint completed MARYLIN Goyal [address] [place], [address], [facility] 09/04/2023 09:38:01 Imaging Results None recorded. [...] Tobacco Smoking Status Former Smoker Etta villalba PA - [facility] 09/03/2023 17:06:26 What Is Your Level [...] available 09/02 17:05:27 Medical History Condition Response DVT--blood clot in your legs N MRSA N Heart Valve Surgery N Pacemaker N Latex Allergy Y Diabetes N Cardiac Stent N Metal Allergy N Sleep Apnea N Rheumatoid Arthritis N Pulmonary Embolism N Taking Blood Thinners N Gynecological HistoryNo gynecological history recorded. Obstetrics History GPAL:G 0 P 0 0 0 0 Past Encounters Encounter ID Performer Location Encounter Start Date Encounter Closed Date Diagnosis/Indication Diagnosis SNOMED-CT Code Diagnosis ICD10 Code Diagnosis Note [id number] MARYLIN Goyal [facility] [address] [place] [address] 09/04/2023 08:13:30 09/04/2023 09:00:42 Pain of right knee joint [id number] 28143 M25.561 Osteoarthr itis of right knee joint 6304219089 96953 M17.11 Risks to the injection include pain, [...] Policy Number Policy Huizar Covered Member ID Huizar Member ID Guarantor Name 09/04/2023 1 [place] Chrissy Stanley [id number] Chrissy Stanley 09/04/2023 2 [facility] (MEDICARE SUPPLEMENT) Chrissy Stanley [id number] Chrissy Stanley Notes Date Note Type Note [...] radicular symptoms. John Mahoney, PAC [address] [place], [address], [place] - [facility] 09/04/2023 09:43:30 OBGyn Episode No OBEpisode recorded.
--- OUTSIDE RECORDS SUMMARY | 2024-07-28 13:47 | XMS_ITS | Clinical Summary ---
Author Organization [facility] Virtual Care Address [address] [place] [address] Phone Care Team Providers Care Career Discovery Teacher Name Role Phone Hector Spivey MD Primary Care Provider Allergies Active Allergy Reactions Criticality Noted Date [...] Description 07/28/2024 7:45 AM CDT Anc[address] Procedure [facility] Medical Group Cardiology [address] [place] [address] History of atrial fibrillation; Other chest pain; Preop cardiovascular exam 07/26/2024 7:56 AM CDT - 07/26/2024 11:59 PM CDT Hospital Encounter [facility] Bldg 1 [facility] [address] [facility] [address] [place] [address] Post-menopausal Discharge Disposition: Discharge to home or self care 07/26/2024 Results Follow-Up [facility] Family Medicine at [address] [place] [address] Hector Spivey MD 07/20/2024 Orders Only [facility] [address] [place] [address] Kristin Navarrete NP 07/19/2024 9:00 AM CDT Office Visit [facility] Medical [facility] Cardiology [address] [facility] [address] [place] [address] Yifan Hogan MD History of atrial fibrillation (Primary Dx); Essential hypertension; Other chest pain; Preop cardiovascular exam 07/08/2024 9:00 AM CDT Office Visit [facility] Family Medicine at [address] [place] [address] Lisette Bauman PA Primary osteoarthritis of right knee (Primary Dx); Age-related osteoporosis without current pathological fracture; Late onset Alzheimer's dementia without behavioral disturbance (HCC); Major depressive disorder with single episode, in full remission; Gastroesophageal reflux disease, unspecified whether esophagitis present; Essential hypertension; History of atrial fibrillation; Hypothyroidism, unspecified type; Post-menopausal 07/07/2024 Orders Only [facility] 1600 [facility] 6th Floor [address] [place] [address] Kristin Navarrete NP 07/06/2024 2:45 PM CDT Office Visit [facility] 1600 [facility] 6th Floor [address] [place] [address] Navarrete, Kristin Jayshree, COMMISSIONER OF RELOCATION SERVICES Late onset Alzheimer's dementia without behavioral disturbance (HCC) (Primary Dx) 05/28/2024 9:15 AM CONCRETE ROD BUSTER Ancillary Procedure [facility] Mobile MRI [address] [place] [address] Right knee pain, unspecified chronicity 05/12/[address] [facility] Health Information Management 1 [place] [address] Scanning, Provider from Last 3 Months Immunizations Immunization Administration Dates Next Due Influenza, Quadrivalent, Hig h Dose, Preservative Free, Intrr 02/03/2023 Influenza, Trivalent, High D ose, Split, Preservative Free, Intramuscular 03/27/2017,01/05/2016 Influenza, Unspecified 01/27/2024,2021,01/26/2021,01/06 Pneumococcal Conjugate PCV 13 11/13/2016 Pneumococcal Polysaccharide PPV23 11/22/2015,04/2010 Tdap 05/06/2016 ZOSTER Recombinant 04/14/2019,03/20/2019, 019 Surgical History Surgery Date Site/Laterality Comments LA TONSILLECTOMY & ADENOIDEC MALOU <AGE 11 Tonsillectomy With Adenoidectomy - (Added by TW Conv) LA CONIZATION CERVIX W/WO D& C RPR KNIFE/LASER Cervical Conization - (Added by TW Conv) LA LAPS TX ECTOPIC PREG W/O SALPING&/OOPHORECTOMY Laparoscopy With Excision Of Ectopic - (Added by TW Conv) LA NEUROPLASTY &/TRANSPOS ME SOLANGE NRV CARPAL TUNNE [...] Procedure Name Priority Date/Time Associated Diagnosis Comments NM MPI SPECT (REST AND/OR STRESS) MULTIPLE STUDIES Schedule Routine, Read Routine (OP Routine) 07/28/2024 9:31 AM CDT History of atrial fibrillation Other chest pain Preop cardiovascular exam DEXA AXIAL SKELETON BONE DENSITY 1 OR MORE SITES Schedule Routine, Read Routine (OP Routine) 07/26/2024 8:48 AM CDT Post-menopausal ELECTROCARDIOGRAM REPORT Routine 07/19/2024 2:36 PM CDT Other chest pain Preop cardiovascular exam POCT LIPID PANEL Routine 07/19/2024 9:24 AM CDT Essential hypertension SCAN - LABS 07/01/2024 MRI KNEE RIGHT WO CONTRAST Schedule Routine, Read Routine (OP Routine) 05/28/2024 9:11 AM CONCRETE ROD BUSTER Right knee pain, unspecified chronicity SCAN - OTHER ORDERS 05/12/2024 HM MAMMOGRAPHY Routine 06/26/2018 COLONOSCOPY Routine 06/05/2016 from Last 3 Months or Most Recently Relevant to Health Maintenance Results * NM MPI SPECT (Rest and/or Stress) Multiple Studies (07/28/2024 9:31 AM CDT) Anatomical Region Laterality Modality Body N/A Nuclear Medicine 07/28/2024 7:20 AM CDT Narrative 07/28/2024 1:[address] [facility] Cardiology 12[address] [facility] [address] [address] [place] [address] [address], [place] [address] P:[phone] P:[phone] MPI Imaging Report Patient Name: CHRISSY STANLEY Марина : 1950 Study Date: 07/28/2024 7:20:28 AM Gender: F Tech: [facility] Location: [facility] Provider: YIFAN HOGAN Height(Cm): 160 BSA: Weight(Kg): 62.4 BMI: 24.37 Order Provider: YIFAN HOGAN PHYSICIAN: Referring Physician: Dr. Spivey. HCG Physician: Yifan Hogan M.D., F.A.C.C. Interpreting Physician: Solis Gaming M.D. Stress Supervision: Solis Gaming M.D. PROCEDURES: Pharmacologic SPECT Report: Myocardial perfusion imaging with Tc99M Sestamibi SPECT at rest and stress post regadenoson (Lexiscan) infusion. INDICATIONS: Hypertension, High Cholesterol, Former Smoker, Z86.79 Personal history of other diseases of the circulatory system, R07.89 Other chest pain, and Z01.810 Encounter for preprocedural cardiovascular examination. FINDINGS: Procedural Findings: One day rest/stress was used. Tc99m Sestamibi injected IV at rest was 8.8 millicuries 25.8 millicuries of Tc99M Sestamibi injected IV during Lexiscan stress Lexiscan 0.4mg administered IV over 10 seconds. Pharmacologic stress related symptoms and/or side effects during infusion include headache. Symptoms were resolved with completion of Lexiscan protocol. Baseline heart rate was 58 BPM Maximum Heart Rate Achieved was: 81 BPM Baseline blood pressure was 148/68 mmHg Post Stress Blood Pressure was 118/62 mmHg Termination: Protocol complete. Resting ECG: Normal sinus rhythm. Post ECG: No diagnostic ST changes. Arrhythmia: No arrhythmias seen. Perfusion Findings: Normal perfusion imaging. No definite fixed or reversible defects. Technical quality of study is excellent. Prone imaging was not performed. Left ventricle cavity size at rest is normal. Left ventricle cavity size with stress is unchanged. A TID of 0.84 was automatically calculated. LV Function: There is hyperdynamic global left ventricular systolic function. Left ventricular ejection fraction is 89 %. CONCLUSIONS: There is hyperdynamic global left ventricular systolic function. Left ventricular ejection fraction is 89 %. Myocardial perfusion imaging is normal. Negative EKG portion of stress test. She did have extended chest burning after Lexiscan. Despite normal imaging and ECG, she continued to have symptoms. 1 SL NTG 0.4 mg given which she says maybe helped. Due to prolonged and ongoing symptoms, she was escorted and the emergency department for further evaluation. Electronically Signed By: Abel Gaming MD 07/28/2024 12:07:39 PM CDT Electronically Signed By: Abel Gaming MD 07/28/2024 12:07:39 PM CDT Procedure Note Abel Gaming MD - 07/28/2024 [facility] Cardiology 12[address] [facility] [address] [address] [address] [facility] [address], [place] [address] P:[phone] P:[phone] MPI Imaging Report Patient Name: CHRISSY STANLEYМарина : 1950 Study Date: 07/28/2024 7:20:28 AM Gender: F Tech: [facility] Location: [facility] Provider: YIFAN HOGAN Height(Cm): 160 BSA: Weight(Kg): 62.4 BMI: 24.37 Order Provider: YIFAN HOGAN PHYSICIAN: Referring Physician: Dr. Spivey. HCG Physician: Yifan Hogan M.D., F.A.C.C. Interpreting Physician: Solis Gaming M.D. Stress Supervision: Solis Gaming M.D. PROCEDURES: Pharmacologic SPECT Report: Myocardial perfusion imaging with Tc99M Sestamibi SPECT at rest and stresspost regadenoson (Lexiscan) infusion. INDICATIONS: Hypertension, High Cholesterol, Former Smoker, Z86.79 Personal history ofother diseases of the circulatory system, R07.89 Other chest pain, and Z01.810 Encounterfor preprocedural cardiovascular examination. FINDINGS: Procedural Findings: One day rest/stress was used. Tc99m Sestamibi injected IV at rest was 8.8 millicuries 25.8 millicuries of Tc99M Sestamibi injected IV during Lexiscan stress Lexiscan 0.4mg administered IV over 10 seconds. Pharmacologic stress related symptoms and/or side effects duringinfusion include headache. Symptoms were resolved with completion of Lexiscan protocol. Baseline heart rate was 58 BPM Maximum Heart Rate Achieved was: 81 BPM Baseline blood pressure was 148/68 mmHg Post Stress Blood Pressure was 118/62 mmHg Termination: Protocol complete. Resting ECG: Normal sinus rhythm. Post ECG: No diagnostic ST changes. Arrhythmia: No arrhythmias seen. Perfusion Findings: Normal perfusion imaging. No definite fixed or reversible defects.Technical quality of study is excellent. Prone imaging was not performed. Left ventricle cavitysize at rest is normal. Left ventricle cavity size with stress is unchanged. A TID of0.84 was automatically calculated. LV Function: There is hyperdynamic global left ventricular systolic function. Leftventricular ejection fraction is 89 %. CONCLUSIONS: There is hyperdynamic global left ventricular systolic function. Leftventricular ejection fraction is 89 %. Myocardial perfusion imaging is normal. Negative EKG portion of stress test. She did have extended chest burning after Lexiscan. Despite normal imagingand ECG, she continued to have symptoms. 1 SL NTG 0.4 mg given which she says maybehelped. Due to prolonged and ongoing symptoms, she was escorted and the emergencydepartment for further evaluation. Electronically Signed By: Abel Gaming MD 07/28/2024 12:07:39 PM CDT Electronically Signed By: Abel Gaming MD 07/28/2024 12:07:39 PM CDT us Yifan Hogan MD IMG NM PROCEDURES Fi nal Result * Dexa Axial Skeleton Bone Density 1 Or 2 Site (07/26/2024 8:48 AM CDT) Anatomical Region Laterality Modality Body N/A Mammography 07/26/2024 11:0 6 PM CDT Narrative 07/26/2024 11:07 PM CDT EXAM DESCRIPTION: DEXA AXIAL SKELETON BONE DENSITY 1 OR MORE SITES REASON FOR STUDY: 74 y/o year old F with given history of: post menopausal Triage Rn/Model: Hologic [place] A (S/N [id number]) Facility LSC value of 0.022 for the [...] Lucian Cid M.D. MF: MEI Report ID: [id number] Reading Location: [id number] Procedure Note Lucian Cid MD - 07/26/2024 EXAM DESCRIPTION: DEXA AXIAL SKELETON BONE DENSITY 1 OR MORE SITES REASON FOR STUDY: 74 y/o year old F with given history of: post menopausal Triage Rn/Model: [place] A (S/N [id number]) Facility LSC value of 0.022 for the [...] Lucian Cid M.D. MF: MEI Report ID: [id number] Reading Location: [place] [address] Lisette Coley IMG DXA PROCEDURES Final Result * Electrocardiogram Report (07/19/2024 2:36 PM CDT) Yifan Hogan MD ECG ORDERABLES Lexi l Result * POCT lipid panel (07/19/2024 9:24 AM CDT) Cholesterol, POC 172 mg/dL Comment:GLU = 97 HDL, POC 77 mg/dL Triglycerides, POC 207 mg/dL LDL Cholesterol POC 53 mg/dL Chol/HDL Ratio, POC 0.7 Non-HDL Cholesterol, POC 95 mg/dL Cholesterol Total, POC 172 mg/dL Capillary blood 07/19/2024 9 :24 AM CDT Yifan Hogan MD POINT OF CARE TEST O RDERABLES Final Result * SCAN - LABS (07/01/2024) Hector Spivey MD Final Result * MRI Knee Right WO Contrast (05/28/2024 9:11 AM CONCRETE ROD BUSTER) Anatomical Region Laterality Modality Lower Extremities Right Magnetic Reson ance 05/28/2024 12:1 5 PM CONCRETE ROD BUSTER Impressions 05/28/2024 3:38 PM CONCRETE ROD BUSTER 1. No meniscal tear. 2. Moderate to [...] Miguel Lamar M.D. Narrative 05/28/2024 3:38 PM CONCRETE ROD BUSTER EXAMINATION: 1. MRI KNEE RIGHT WO CONTRAST [...] by: Miguel Lamar M.D. Fredrick Dow MD IM MRI PROCEDURES Final Res ult * SCAN - OTHER ORDERS (05/12/2024) Provider Scanning Final Result * MAMMOGRAPHY (06/26/2018) Mammogram Normal Historical Provider HEALTH MAINTENANCE Final Result * (ABNORMAL) Colonoscopy (06/05/2016) Anatomical Region Laterality Modality Other Historical Provider ENDOSCOPY PROCEDURES Lexi l Result from Last 3 Months or Most Recently Relevant to Health Maintenance Insurance MEDICARE [facility] MEDICARE [facility] MEDICARE [facility] Care Teams Career Discovery Teacher Relationship Specialty Start Date End Date Hector Spivey MD PCP - General Family Medicine 04/11/21 Dr. Sally Storm [address] [facility] [address], [place] [address] Family Medicine 04/06/24
--- OUTSIDE RECORDS SUMMARY | 2024-07-28 13:47 | XMS_ITS | Encounter Summary ---
Author Organization [facility] Healthcare Address [address] [place] [address] Care Team Providers Care Environmental Educator Name Role Phone Hector Spivey MD Primary Care Provider [phone] Encounter Details Date Type Department Care Team (Late st Contact Info) Description 07/26/2024 Results Follow-Up [facility] Family Medicine at [address] [place] [address] Hector Spivey MD [address] [place] [id number] Social History Tobacco Use Types Packs/Day Years [...] on filedocumented in this encounter Care Teams Environmental Educator Relationship Specialty Start Date End Date Hector Spivey MD PCP - General Family Medicine 04/11/21 Dr. Sally Storm [address] [facility] [address], [place] [id number] Family Medicine 04/06/24 documented as of this encounter
--- OUTSIDE RECORDS SUMMARY | 2024-07-28 13:47 | XMS_ITS | Clinical Summary ---
Author Organization [facility] Address [address] [place] [address] Phone Care Team Providers Care Hydraulic Corrugating Machine Operator Name Role Phone Provider, Unknown Primary [...] age to complete this topic Insurance MEDICARE [facility] Care Teams Hydraulic Corrugating Machine Operator Relationship Specialty Start Date End Date Provider, Unknown UNKNOWN PCP - General 12/31/17
--- OUTSIDE RECORDS SUMMARY | 2024-07-28 13:47 | XMS_ITS | Encounter Summary ---
Author Organization [facility] Healthcare Address [address] [place] [address] Care Team Providers Care Torpedo Specialist Name Role Phone Hector Spivey MD Primary Care Provider [phone] Reason for Visit * Diagnostic Imaging (Routine) - Closed Specialty Diagnoses / Procedures Referred By Contac t Referred To Contact Diagnoses History of atrial fibrillation Other chest pain Preop cardiovascular exam Procedures NM MPI SPECT (Rest and/or Stress) Multiple Studies NH TC99M SESTAMIBI NH REGADENOSON INJECTION NH THERAPEUTIC PROPHYLACTIC/DX INJECTION SUBQ/IM Yifan Hogan MD [address] [address] Phone: tel: fax: [facility] Medical Group Cardiology [address] [facility] [address] [place] [address] Phone: tel: fax: Referral ID Status Reason Start Date Expiration Date Visits Re quested Visits Authorized [id number] Closed 07/19/2024 08/18/2025 1 1 Encounter Details Date Type Department Care Team (Latest Contact Info) Description 07/28/2024 7:45 AM CDT Ancillary Procedure [facility] Medical [facility] Cardiology [facility] [address] [place] [address] History of atrial fibrillation; Other chest [...] fibrillation Other chest pain Preop cardiovascular exam documented in this encounter Results * NM MPI SPECT (Rest and/or Stress) Multiple Studies (07/28/2024 9:31 AM CDT) Anatomical Region Laterality Modality Body N/A Nuclear Medicine 07/28/2024 7:20 AM CDT Narrative 07/28/2024 1:17 PM CDT [facility] Medical Group Cardiology 12[address] [facility] [address] [address] [address] [facility] [address], [place] [address] P:[phone] P:[phone] MPI Imaging Report Patient Name: CHRISSY STANLEYМарина : 1950 Study Date: 07/28/2024 7:20:28 AM Gender: F Tech: JUAN REEVES Location: [facility] Provider: YIFAN HOGAN Height(Cm): 160 BSA: [...] Procedure Note Abel Gaming MD - 07/28/2024 [facility] Medical Group Cardiology [address] [facility] [address] [address] [address] [facility] [address], [place], [place] [address] P:[phone] P:[phone] MPI Imaging Report Patient Name: CHRISSY STANLEYМарина : 1950 Study Date: 07/28/2024 7:20:28 AM Gender: F Tech: [facility] Location: [facility] Provider: YIFAN HOGAN Height(Cm): 160 BSA: [...] MD IMG NM PROCEDURES Fi nal Result documented in this encounter Visit Diagnoses Diagnosis History of [...] millicuries documented in this encounter Care Teams Torpedo Specialist Relationship Specialty Start Date End Date Hector Spivey MD PCP - General Family Medicine 04/11/21 Dr. Sally Storm [address] [facility] [address] [place] [address] Family Medicine 04/06/24 documented as of this encounter
--- OUTSIDE RECORDS SUMMARY | 2024-07-28 13:47 | XMS_ITS | Referral Summary ---
Author Organization [facility] Virtual Care Address [address] [place] [phone] Phone Care Team Providers Care Nuclear Auxiliary Operator Name Role Phone Hector Spivey MD Primary Care Provider [phone] Encounters Date Type Department Care Team Description 07/28/2024 7:45 AM CDT Ancillary Procedure [facility] Cardiology [facility] [address] [place] [address] History of atrial fibrillation; Other chest pain; Preop cardiovascular exam 07/26/2024 Results Follow-Up [facility] Family Medicine at [address] [place] [address] Hector Spivey MD 07/26/2024 7:56 AM CDT - 07/26/2024 11:59 PM CDT Hospital Encounter [facility] Medical Office Bldg 1 [facility] [address] [facility] [address] [place] [address] Post-menopausal Discharge Disposition: Discharge to home or self care 07/20/[address] [facility] [address] [facility] 6th Floor [address] [place] [address] Kristin Navarrete NP 07/19/2024 9:00 AM CDT Office Visit [facility] Cardiology [address] [place] [address] Yifan Hogan MD History of atrial fibrillation (Primary Dx); Essential hypertension; Other chest pain; Preop cardiovascular exam 07/08/2024 9:00 AM CDT Office Visit [facility] Medical Group Family Medicine at [address] [place] [address] Lisette Bauman PA Primary osteoarthritis of right knee (Primary Dx); Age-related osteoporosis without current pathological fracture; Late onset Alzheimer's dementia without behavioral disturbance (HCC); Major depressive disorder with single episode, in full remission; Gastroesophageal reflux disease, unspecified whether esophagitis present; Essential hypertension; History of atrial fibrillation; Hypothyroidism, unspecified type; Post-menopausal 07/07/[address] [facility] [address] [facility] 6th Floor [address] [place] [address] Kristin Navarrete NP 07/06/2024 2:45 PM CDT Office Visit [facility] [address] [facility] 6th Floor [address] [place] [address] Kristin Navarrete NP Late onset Alzheimer's dementia without behavioral disturbance (HCC) (Primary Dx) 05/28/2024 9:15 AM SHOTBLAST OPERATOR Ancillary Procedure [facility] Mobile MRI [address] [place] [address] Right knee pain, unspecified chronicity 05/12/2024 Orders Only [facility] Health Information Management 1 [place] [address] Scanning, Provider from Last 3 Months Allergies [...] Read Routine (OP Routine) 05/28/2024 9:11 AM SHOTBLAST OPERATOR Right knee pain, unspecified chronicity SCAN - OTHER ORDERS 05/12/2024 MAMMOGRAPHY Routine 06/26/2018 COLONOSCOPY Routine 06/05/2016 from Last 3 Months or Most Recently Relevant to Health Maintenance Results * NM MPI SPECT (Rest and/or Stress) Multiple Studies (07/28/2024 9:31 AM CDT) Anatomical Region Laterality Modality Body N/A Nuclear Medicine 07/28/2024 7:20 AM CDT Narrative 07/28/2024 1:17 PM CDT [facility] Medical Group Cardiology [address], [place] [address] [address] [facility] [address], [place] [address] P:[phone] P:[phone] MPI Imaging Report Patient Name: CHRISSY STANLEY B : 1950 Study Date: 07/28/2024 7:20:28 AM Gender: F Tech: [facility] Location: [facility] Provider: YIFAN HOGAN Height(Cm): 160 BSA: Weight(Kg): [...] Procedure Note Abel Gaming MD - 07/28/2024 [facility] Medical Group Cardiology [address] [facility] [address], [place] [address] [address] [facility] [address], [place] [address] P:[phone] P:[phone] MPI Imaging Report Patient Name: CHRISSY STANLEY B : 1950 Study Date: 07/28/2024 7:20:28 AM Gender: F Tech: JUAN REEVES Location: [facility] Provider: YIFAN HOGAN Height(Cm): 160 BSA: Weight(Kg): 62.4 BMI: 24.37 Order Provider: YIFAN HOGAN PHYSICIAN: Referring Physician: Dr. Spivey. HCG Physician: Yifan Hogan M.D., F.A.CJuniorC. Interpreting Physician: Solis Gaming M.D. Stress Supervision: [...] F with given history of: post menopausal Piece Goods Clerk/Model: [employer]ozu A (S/N [id number]) Facility LSC value of 0.022 for the [...] Lucian Cid M.D. MF: MEI Report ID: [id number] Reading Location: [place] [address] Procedure Note Lucian Cid MD - 07/26/2024 EXAM DESCRIPTION: DEXA AXIAL SKELETON BONE DENSITY 1 OR MORE SITES REASON FOR STUDY: 74 y/o year old F with given history of: post menopausal Piece Goods Clerk/Model: Shozu A (S/N [id number]) Facility LSC value of 0.022 for the [...] Lucian Cid M.D. MF: MEI Report ID: [id number] Reading Location: [place] [address] us Lisette Coley IMKody DXA PROCEDURES Final Result * Electrocardiogram Report (07/19/2024 2:36 PM CDT) Yifan Hogan MD ECG ORDERABLES Lexi l Result * POCT lipid panel (07/19/2024 9:24 AM CDT) [facility] Cholesterol, POC 172 mg/dL Comment:GLU = 97 [...] Knee Right WO Contrast (05/28/2024 9:11 AM SHOTBLAST OPERATOR) Anatomical Region Laterality Modality Lower Extremities Right Magnetic Reson ance 05/28/2024 12:1 5 PM SHOTBLAST OPERATOR Impressions 05/28/2024 3:38 PM SHOTBLAST OPERATOR 1. No meniscal tear. 2. Moderate to [...] Miguel Lamar M.D. Narrative 05/28/2024 3:38 PM SHOTBLAST OPERATOR EXAMINATION: 1. MRI KNEE RIGHT WO CONTRAST [...] Recently Relevant to Health [place] [address] [facility] MEDICARE [facility] MEDICARE [facility] Care Teams Nuclear Auxiliary Operator Relationship Specialty Start Date End Date Hector Spivey MD PCP - General Family Medicine 04/11/21 Dr. Sally Storm [address] [facility] [address], [place] [address] Family Medicine 04/06/24
--- OUTSIDE RECORDS SUMMARY | 2024-07-28 13:47 | XMS_ITS | Encounter Summary ---
Author Organization [facility] Healthcare Address [address] [place] [address] Care Team Providers Care Size Mixer Name Role Phone Hector Spivey MD Primary Care Provider [phone] Reason for Referral * Diagnostic Imaging (Routine) - Closed Specialty Diagnoses / Procedures Referred By Contac t Referred To Contact Diagnoses Post-menopausal Procedures Dexa Axial Skeleton Bone Density 1 Or 2 Site Lisette Bauman PA Phone: tel: fax: [address] [phone] Referral ID Status Reason Start Date Expiration Date Visits Re quested Visits Authorized [id number] Closed 07/08/2024 08/07/2025 1 1 Reason for Visit * Diagnostic Imaging (Routine) - Closed Specialty Diagnoses / Procedures Referred By Contac t Referred To Contact Diagnoses Post-menopausal Procedures Dexa Axial Skeleton Bone Density 1 Or 2 Site Lisette Bauman PA Phone: tel: fax: [address] [phone] Referral ID Status Reason Start Date Expiration Date Visits Re quested Visits Authorized [id number] Closed 07/08/2024 08/07/2025 1 1 Encounter Details Date Type Department Care Team (Latest Contact Info) Description 07/26/2024 7:56 AM CDT - 07/26/2024 11:59 PM CDT Hospital Encounter [facility] Medical Office Bld[facility] [address] [place] [address] Post-menopausal Discharge Disposition: Discharge to home or [...] F with given history of: post menopausal Customer Experience Analyst/Model: INTTRA A (S/N [id number]) Facility LSC value of 0.022 for the [...] Lucian Cid M.D. MF: MEI Report ID: [id number] Reading Location: [id number] Procedure Note Lucian Cid MD - 07/26/2024 EXAM DESCRIPTION: DEXA AXIAL SKELETON BONE DENSITY 1 OR MORE SITES REASON FOR STUDY: 74 y/o year old F with given history of: post menopausal Customer Experience Analyst/Model: INTTRA A (S/N [id number]) Facility LSC value of 0.022 for the [...] Lucian Cid M.D. MF: MEI Report ID: [id number] Reading Location: [place] [address] Lisette Coley IMG DXA PROCEDURES Final Result documented in this encounter Visit Diagnoses Diagnosis Post-menopausal Asymptomatic postmenopausal status (age-related) (natural) documented in this encounter Care Teams Size Mixer Relationship Specialty Start Date End Date Hector Spviey MD PCP - General Family Medicine 04/11/21 Dr. Sally Storm [address], [place] [phone] Family Medicine 04/06/24 documented as of this encounter
--- OUTSIDE RECORDS SUMMARY | 2024-07-28 13:47 | XMS_ITS | Continuity of Care Document ---
Author Organization [facility] Address [address] [place] [address] Phone Care Team Providers Care Pre Press Operator Name Role Phone Michael MICHEL, Les Unavailable [...] Diagnoses Date Provider Providers Copied on Encounter [facility], [address], [place], [address], [place] tel:[phone] [place] [facility] 1 No Information 4 Michael Saldana. [address], [facility], [place], [place], [id number] , [place]. tel: [phone] OFFICE/OUTPAT IENT VISIT EST [facility], [address], [place], [address], [place] tel: [phone] [facility] [facility] 1 Atrial Fibrillation 4 Michael Saldana. [address], [facility], [place], [place], [id number] , [place]. tel: [phone] Referring Provider: Les Rodriguez MD, [address] [facility], [place], [address] . tel:[phone] OFFICE/OUTPAT IENT VISIT, EST [facility], [address], [place], [address], [place] tel: [phone] [facility] Atrial Fibrillation 3 Michael Saldana. [address], [facility], [place], [place], [id number] , [place]. tel: [phone] [facility], [address], [place], [address], [place] tel: [phone] [facility] No Information 1 Narendra Tamayo . [address], [facility], [place], [address], [place]. tel: [phone] Referring Provider: Les Rodriguez MD, [address] [facility], [place], [address] . tel:[phone] OFFICE/OUTPAT IENT VISIT, EST [facility], [address], [place], [address], [place] tel: [phone] [facility] Chest PainAbnormal Stress TestAtrial Fibrillation 1 Michael Saldana. [address], [facility], [place], [place], [id number] , [place]. tel: [phone] Referring Provider: Les Rodriguez MD, [address] [facility], [place], [address] . tel:[phone] OFFICE/OUTPAT IENT VISIT, EST [facility], [address], [place], [address], [place] tel: [phone] [facility] Atrial Fibrillation Nov-0 201 0 Michael Saldana. [address], [facility], [place], [place], [id number] , [place]. tel: [phone] Referring Provider: Les Rodriguez MD, [address] [facility], [place], [address] . tel:[phone] OFFICE/OUTPAT IENT VISIT, EST [facility], [address], [place], [address], [place] tel: [phone] [facility] Atrial FibrillationChest Pain 0 Michael Saldana. [address], [facility], [place], [place], [id number] , [place]. tel: [phone] Referring Provider: Les Rodriguez MD, [address] [facility], [place], [address] . tel:[phone] [facility], [address], [place], [address], [place] tel: [phone] [facility] No Information 0 Michael Saldana. [address], [facility], [place], [place], [id number] , [place]. tel: [phone] Referring Provider: Les Rodriguez MD, [address] [facility], [place], [address] . tel:[phone] OFFICE CONSULTATION [facility], [address], [place], [address], [place] tel: [phone] [facility] Atrial FibrillationHypokal emiaHypothyroidism 201 0 Michael Saldana. [address], [facility], [place], [place], [id number] , [place]. tel:[phone] Family History Family Member Type Diagnosis Age At Onset No Information Payers Payer name Insurance type Covered alliance party ID Angie fall(mary) Michel [id number] Social History Type Description Quantity Date Captured [...]
--- NOTE | 2024-07-28 14:12 | ECG_ITS ---
Test Date: 2024-07-28 14:26:52 Measurements Intervals Spray Rate: 61 P: 35 TX: 144 QRS: -4 QRSD: 84 T: 57 QT: 416 QTc: 422 Interpretive Statements SINUS RHYTHM EARLY PRECORDIAL R/S TRANSITION BORDERLINE ST ABNORMALITY- DIFFUSE LEADS BASELINE WANDER- II, III, AVR, AVL, AVF, V2-V6 BORDERLINE ECG Compared to ECG 07/28/2024 11:40:16 NO SIGNIFICANT CHANGE Electronically Signed On 07-28-2024 15:09:58 CDT by Joni Obrien D.O.
--- NOTE | 2024-07-28 14:45 | PM.IMHP ---
H&P: HPI History of Present Illness Date/Time: 07/28/24 14:45 Chief Complaint: Chest Pain Narrative: 74 y/o F with PMH of paroxysmal atrial fibrillation, migraines, Staci's, hypothyroidism, and anxiety presents here with chest pain. The patient presents here from [place] stress lab for further evaluation of chest pain. HPI obtained through chart review, patient report, and patient's report. The patient was undergoing a nuclear stress test when she developed burning in her chest tightness and lightheadedness shortly after the . She describes the chest pain as initially more of a burning sensation to her upper chest with radiation into her throat, constant, decreased in severity but still present, and no aggravating or alleviating. She was given 1 nitro without relief. She was undergoing the stress test as preop clearance for knee surgery. She has hx of AFib, no other significant cardiac history. Last dose of Eliquis unknown, may have been held on 07/25. She denies any recurrence of chest pain. No current complaints. Initial VS at presentation: 97.6? F, HR 63, RR 16, 134/65, and 100% on RA. ED workup showed: No leukocytosis, no anemia, normal coags, no significant electrolyte derangements, creatinine 0.87 and GFR >60, initial troponin negative. Initial EKG showed sinus rhythm with short SC interval, early precordial RS transition, borderline ST-T-wave abnormality anterior/high lateral leads, baseline artifact. CXR showed no acute cardiopulmonary disease. 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 Social History Social History Smoking status: Former smoker Tobacco type: cigarettes Second hand tobacco smoke exposure: Yes Smoking end date: 04/28/82 Alcohol intake: current Drinks per week: 14 Substance use: former Substance use type: marijuana Last use: 1974 Do You Feel Safe in your Home?: Yes Lack of Transportation: YES Lack of Food: Never True Current Housing: I Have Housing Concerned About Future Housing: No Difficulty Paying Gas/Electric Bills: No Difficulty Paying for Meds: No Currently Unemployed: No Education: Master's Degree or Higher Difficulty w/ Childcare or Family Care: No Living arrangements: with family Gender identity (if verbalized by the patient): Female Spiritual care concerns: No Meds Home Medications and Allergies Home Medications ?Medication ?Instructions ?Recorded ?Confirmed ?Type cholecalciferol (vitamin D3) 25 200 unit PO DAILY 05/24/19 07/28/24 History mcg (1,000 unit) capsule epinephrine 0.3 mg/0.3 mL 0.3 mg IM ONCE PRN anaphylaxis 05/24/19 07/28/24 History injection, auto-injector (EpiPen) folic acid 1 mg tablet 20 mg PO DAILY 05/25/19 07/28/24 History knrvmfir-viphbfc-etrv-lutein tablet 1 tablet PO DAILY 05/25/19 07/28/24 History vitamin B complex 1 tablet PO DAILY 05/25/19 07/28/24 History apixaban 5 mg tablet (Eliquis) 5 mg PO BID 05/11/24 07/28/24 History atorvastatin 40 mg tablet (Lipitor) 40 mg PO DAILY 05/11/24 07/28/24 History levothyroxine 25 mcg capsule 25 mcg PO DAILY 05/11/24 07/28/24 History losartan 25 mg tablet 25 mg PO DAILY 05/11/24 07/28/24 History pantoprazole 40 mg tablet,delayed 40 mg PO QHS 05/11/24 07/28/24 History release (Protonix) sertraline 50 mg tablet 50 mg PO DAILY 05/11/24 07/28/24 History rivastigmine 4.6 mg/24 hour 4.6 mg transdermal .q24 07/28/24 07/28/24 History transdermal patch Allergies Allergy/AdvReac Type Severity Reaction Status Date / Time trimethoprim Allergy Mild trimethoprim Verified 07/28/24 16:19 ([id number]) bacitracin Allergy Unknown bacitracin Verified 07/28/24 16:19 ([id number]) clarithromycin Allergy Unknown clarithromycin Verified 07/28/24 16:19 ([id number]) diphenhydramine Allergy Unknown diphenhydramine Verified 07/28/24 16:19 ([id number]) nickel Allergy Unknown Unknown Verified 07/28/24 16:19 Penicillins Allergy Unknown Penicillins Verified 07/28/24 16:19 ([id number]) pseudoephedrine Allergy Unknown pseudoephedrine Verified 07/28/24 16:19 ([id number]) silicone Allergy Unknown silicone Verified 07/28/24 16:19 ([id number]) Sulfa (Sulfonamide Allergy Unknown Sulfa Verified 07/28/24 16:19 Antibiotics) (Sulfonamide Antibiotics) ([id number]) bee venom protein (honey bee) Allergy Swelling Verified 07/28/24 16:19 cinnamon Allergy Anaphylaxis Verified 07/28/24 16:19 coconut Allergy Hives Verified 07/28/24 16:19 loratadine Allergy Insomnia Verified 07/28/24 16:19 Vital Signs Vital Signs - 24 hr 07/28/24 11:30 07/28/24 11:44 07/28/24 11:46 Temperature 97.6 F Pulse Rate 63 61 Respiratory Rate 16 13 Blood Pressure 134/65 134/65 Pulse Oximetry 100 100 100 Oxygen Delivery Room Air Room Air Exam Const: General: comfortable and no acute distress Other: , female, nontoxic appearance HENMT: Face/Nose/Sinus: Normal nares present Mouth: Yes moist mucous membranes Eyes: General: appearance normal, both eyes and all related structures Sclera: sclerae normal Pupils: Equal, round and reactive pupils present EOM: EOMs intact bilaterally Resp: Effort & Inspection: normal respiratory effort Auscultation: clear to auscultation bilaterally Cardio: Rate: regular rate Rhythm: regular rhythm Other: S1-S2 present without murmur, rub, ectopy GI: Other: Abdomen soft, nondistended, nontender. Normoactive bowel sounds in all quadrants. Skin: General skin exam: normal color and no rashes or lesions noted Wounds: no wounds Neuro: Speech: normal speech Motor exam (neuro): 5/5 motor strength present throughout Sensory Exam: normal sensation Other: A&O times 3-4 Extrem: General: normal to inspection Psych: Mental Status: mental status grossly normal Affect: normal affect Other: Fair insight and judgment, very pleasant H&P: Results Labs Labs: Short CBC 07/28/24 Range/Units 11:52 WBC 7.5 (4.5-10.0) K/mm3 Hgb 14.2 (12.0-15.0) g/dL Hct 42.3 (37.0-47.0) % Plt Count 235 (150-375) k/mm3 BMP 07/28/24 11:52 Sodium 139 Potassium 4.1 Chloride 103 Carbon Dioxide 23 BUN 18 H Creatinine 0.87 Glucose 95 Calcium 9.7 Cardiac Enzymes 07/28/24 Range/Units 11:52 Troponin I < 0.012 (0.000-0.034) ng/mL Liver Function 07/28/24 Range/Units 11:52 Total Bilirubin 0.6 (0.2-1.3) mg/dL AST 40 H (14-36) U/L ALT 33 (6-35) U/L Alkaline Phosphatase 70 (38-126) U/L Albumin 4.4 (3.5-5.1) g/dL Assessment and Plan Assessment and plan (1) Chest pain in adult: Code(s): R07.9 - Chest pain, unspecified Status: Acute Assessment and Plan: - EKG, initial: Sinus rhythm with short SC interval, early precordial R/S transition, borderline ST-T-wave abnormality enter/high lateral leads, baseline artifact. When compared to old EKG, heart rate has increased. - EKG, repeat (1): No significant change compared to prior EKG done earlier same day. - CXR: No acute cardiopulmonary disease. - Troponin: < 0.012 x2, 6 hour ordered - ASA 324 given, continue as 81 daily - SL nitro PRN - cardiology consulted, awaiting recs - hold Eliquis in case of need for heart catheterization, will need to be held 48 hours prior to procedure. Patient is unsure of last dose, daughter reaching out to find out information. If patient has held greater than 48 hours, will make NPO at midnight. - no abnormalities on stress test performed today - telemetry monitoring (2) PAF (paroxysmal atrial fibrillation): Code(s): I48.0 - Paroxysmal atrial fibrillation Status: Chronic Assessment and Plan: - home medications: Hold Eliquis in case of need for procedures. Not currently on a anti dysrhythmic medication. Plan Diet: Heart healthy GI Prophylaxis: Not currently indicated DVT Prophylaxis: SCDs, Eliquis held Lines: Peripheral Code Status: Full code Quality VTE Prophylaxis VTE prophylaxis: mechanical ordered Hospitalist MIPS Advance Care Plan I have confirmed that the patient's Advanced Care Plan is present, code status is documented, or surrogate decision maker is listed in patient medical record.: Yes Medication Reconciliation I have utilized all available resources to obtain, update and review the patients current medications (includes all prescriptions, OTC, herbals, cannabis, and nutritional supplements).: Yes
[2024-07-28 14:55] LABS: Troponin I < 0.012 ng/mL (0.000-0.034)
--- NOTE | 2024-07-28 15:51 | ADMGEN ---
This patient, Chrissy Hernandez, was admitted to IMU Room 200-01 at 1549. Patient/family oriented to hospital policies and general routines including ID bracelet, bed and alarms, visiting hours, pain management, procedures, bathroom and other care routines, personal items, smoking policy, room service/diet, and visiting hours. Information on how to activate the Rapid Response Team has been discussed. Patient/Family are encouraged to report perceived risks to care and to ask questions if they do not understand what they are told or what they should do.
[2024-07-28 18:22] LABS: Troponin I < 0.012 ng/mL (0.000-0.034)
[2024-07-28] MEDS: CALCIUM CARBONATE (TUMS) 500 MG (200 MG ELEMENTAL) PO (18:23)
[2024-07-28] MEDS: ACETAMINOPHEN 325 MG TABLET 650 MG PO (18:42)
[2024-07-28] MEDS: PANTOPRAZOLE 40 MG TABLET PO (20:08)
[2024-07-28] MEDS: ALPRAZolam (*CRX) 0.25 MG TABLET PO (22:20)
[2024-07-29] VITALS (10 sets, daily range): BP systolic 117–128; BP diastolic 35–58; PULSE 50–62; RESP 18–20; TEMP 36.5–36.7; O2SAT 95–98
[2024-07-29 04:23] LABS: Basophils Absolute Auto 0.1 K/mm3 (0.0-0.1); Eosinophils Absolute Auto 0.2 K/mm3 (0-0.3); Eosinophils Percent Auto 2.6 % (0-4.4); Hematocrit 41.1 % (37.0-47.0); Hemoglobin 13.6 g/dL (12.0-15.0); Immature Granulocyte Absolute 0.02 K/mm3 (0.00-0.031); Immature Granulocyte Percent A 0.3 % (0-0.5); Lymphocytes Absolute Auto 3.05 K/mm3 (0.9-3.2); Lymphocytes Percent Auto 44.5 % (18.3-44.2); Mean Corpuscular HGB Conc 33.1 g/dl (32-36); Mean Corpuscular Hemoglobin 30.9 pg (26-34); Mean Corpuscular Volume 93.4 fl (80-100); Monocytes Absolute Auto 0.5 K/mm3 (0.1-0.6); Monocytes Percent Auto 6.9 % (2.6-8.5); Neutrophils Absolute Auto 3.1 K/mm3 (1.3-6.7); Neutrophils Percent Auto 44.7 % (45.5-73.1); Platelet Count Result 184 k/mm3 (150-375); Red Cell Distribution Width 12.9 % (11.5-14.5); White Blood Count 6.9 K/mm3 (4.5-10.0)
[2024-07-29 04:35] LABS: Anion Gap 10 mmol/L (4-12); Blood Urea Nitrogen 23 mg/dL (7-17); Calcium 9.2 mg/dL (8.4-10.2); Carbon Dioxide 23 mmol/L (22-30); Chloride 106 mmol/L (98-107); Estimated CRCL calculation 40 ml/min; Estimated Glomerular Filt Rate 59; Glucose 88 mg/dL (65-110); Potassium 3.6 mmol/L (3.4-5.0); Sodium 139 mmol/L (137-145)
[2024-07-29] MEDS: LEVOTHYROXINE SODIUM 25 MCG TABLET PO (06:44)
[2024-07-29] MEDS: ACETAMINOPHEN 325 MG TABLET 650 MG PO (06:44)
--- NOTE | 2024-07-29 07:43 | PM.IMPN ---
Progress Note: A&P Assessment and Plan (1) Chest pain in adult: Code(s): R07.9 - Chest pain, unspecified Status: Acute (2) PAF (paroxysmal atrial fibrillation): Code(s): I48.0 - Paroxysmal atrial fibrillation Status: Chronic (3) COVID-19: Code(s): U07.1 - COVID-19 Status: Acute Plan 74 y/o F with PMH of paroxysmal atrial fibrillation, migraines, Staci's, hypothyroidism, and anxiety presents here with chest pain. Chest pain in adult: Code(s): R07.9 - Chest pain, unspecified Status: Acute Assessment and Plan: EKG, initial: Sinus rhythm with short VA interval, early precordial R/S transition, borderline ST-T-wave abnormality enter/high lateral leads, baseline artifact. When compared to old EKG, heart rate has increased. Repeated EKG shows no dynamic changes - CXR: No acute cardiopulmonary disease. - Troponin: < 0.012 x2, 6 hour ordered - ASA 324 given, continue as 81 daily - SL nitro PRN Consult campaign marketing manager for evaluation treatment Patient reported she had a patent coronary artery evaluation by cardiac catheterization 2022 PAF (paroxysmal atrial fibrillation): Code(s): I48.0 - Paroxysmal atrial fibrillation Status: Chronic Assessment and Plan: home medications: Hold Eliquis in case of need for procedures. Not currently on a anti dysrhythmic medication. Resume Eliquis per campaign marketing manager GERD Patient has a persistent epigastric discomfort chest Patient has been on Protonix for longtime, need to rule out esophagitis, gastritis, ulcers Consult GI for evaluation treatment Subjective Date/time seen: 07/29/24 07:43 Interval history: Patient is afebrile, blood pressure stable, no O2 desaturation room air, Labs reviewed, CBC chemistry unremarkable, troponin negative x2 Patient still has a pressure-like discomfort on the chest also has discomfort gastric region. Patient has history of GERD on Protonix. Denies acid reflux Afebrile blood pressure stable Patient states she has patent coronary artery on cardiac catheterization 2022 Exam Narrative: GENERAL: Pleasant, in no acute distress. Well-nourished. - EYES: EOMI. Anicteric. - HENT: Moist mucous membranes. - LUNGS: Clear to auscultation bilaterally, no wheezing, rhonchi, or rales. - CARDIOVASCULAR: Regular rate and rhythm. No murmur. No JVD. - ABDOMEN: Soft, epigastric discomfort and non-distended. No palpable masses. - EXTREMITIES: No edema. Peripheral pulses 2+. Non-tender. - NEUROLOGIC: No focal neurological deficits. CN II-XII grossly intact. - PSYCHIATRIC: Awake, Alert and oriented x 3. Appropriate mood and affect. - SKIN: No rashes or lesions. Warm. - LYMPH: No cervical lymphadenopathy. Objective Data Vital Signs Vital Signs: Vital Signs - 24 hr 07/28/24 11:30 07/28/24 11:44 07/28/24 11:46 Temperature 97.6 F Pulse Rate 63 61 Respiratory Rate 16 13 Blood Pressure 134/65 134/65 Pulse Oximetry 100 100 100 Oxygen Delivery Room Air Room Air Fraction of Inspired Oxygen 07/28/24 12:00 07/28/24 14:00 07/28/24 14:34 Temperature Pulse Rate 63 63 65 Respiratory Rate 13 17 17 Blood Pressure 124/78 120/103 H 116/81 Pulse Oximetry 95 95 100 Oxygen Delivery Fraction of Inspired Oxygen 07/28/24 15:56 07/28/24 16:00 07/28/24 16:02 Temperature 98.6 F Pulse Rate 65 60 Respiratory Rate 20 Blood Pressure 129/58 L Pulse Oximetry 100 Oxygen Delivery Room Air Fraction of Inspired Oxygen 07/28/24 18:00 07/28/24 19:55 07/28/24 20:00 Temperature 99.0 F Pulse Rate 64 60 Respiratory Rate 20 Blood Pressure 148/56 H Pulse Oximetry 99 Oxygen Delivery Room Air Fraction of Inspired Oxygen 07/28/24 20:00 07/28/24 20:39 07/28/24 22:00 Temperature Pulse Rate 68 59 L Respiratory Rate Blood Pressure Pulse Oximetry 98 Oxygen Delivery Room Air Fraction of Inspired Oxygen 21 07/28/24 23:50 07/29/24 00:00 07/29/24 00:00 Temperature 98.0 F Pulse Rate 65 62 Respiratory Rate 20 Blood Pressure 126/55 L Pulse Oximetry 98 Oxygen Delivery Room Air Fraction of Inspired Oxygen 07/29/24 02:00 07/29/24 03:37 07/29/24 04:00 Temperature Pulse Rate 54 L 51 L Respiratory Rate Blood Pressure Pulse Oximetry Oxygen Delivery Room Air Fraction of Inspired Oxygen 07/29/24 04:12 07/29/24 06:00 Temperature 97.7 F Pulse Rate 50 L 60 Respiratory Rate 20 Blood Pressure 128/58 L Pulse Oximetry 97 Oxygen Delivery Fraction of Inspired Oxygen Intake/Output Intake/Output: Intake & Output 07/26/24 07/27/24 07/28/24 07/29/24 23:59 23:59 23:59 23:59 Intake Total 430 550 Output Total 150 800 Balance 280 -250 Meds/Results Medications: Active Medications Generic Name Dose Route Start Last Admin Trade Name Freq PRN Reason Stop Dose Admin Acetaminophen 650 mg 07/28/24 14:34 07/29/24 06:44 Acetaminophen 325 Mg Tablet PO 650 mg Q4H PRN Administration Mild Pain (1-3) or Fever Aspirin 81 mg 07/29/24 08:00 Aspirin 81 Mg Chewable Tablet PO DAILY@0800 [facility] Atorvastatin Calcium 40 mg 07/29/24 09:00 Atorvastatin 40 Mg Tablet PO DAILY [facility] Calcium Carbonate 200 mg 07/28/24 18:02 07/28/24 18:23 Calcium Carbonate (Tums) 500 Mg (200 Mg Elemental) PO 200 mg Q6H PRN Administration Indigestion Folic Acid 20 mg 07/29/24 09:00 Folic Acid 1 Mg Tablet PO DAILY [facility] Levothyroxine Sodium 25 mcg 07/29/24 06:30 07/29/24 06:44 Levothyroxine Sodium 25 Mcg Tablet PO 25 mcg DAILY@0630 [facility] Administration Losartan Potassium 25 mg 07/29/24 09:00 Losartan Potassium 25 Mg Tablet PO DAILY [facility] Multivitamins/Minerals 1 tab 07/29/24 09:00 Multivitamins /C Lutein (Centrum Silver) Tablet *Bkc PO DAILY [facility] Nitroglycerin 0.4 mg 07/28/24 17:18 Nitroglycerin Sl 0.4 Mg Tablet SUBLINGUAL Q5MIN PRN Chest Pain Pantoprazole Sodium 40 mg 07/28/24 21:00 07/28/24 20:08 Pantoprazole 40 Mg Tablet PO 40 mg QHS [facility] Administration Rivastigmine 1 patch 07/29/24 09:00 Rivastigmine Tartrate 4.6 Mg Patch TRANSDERM DAILY [facility] Sertraline HCl 50 mg 07/29/24 09:00 Sertraline Hcl 50 Mg Tablet PO DAILY [facility] Vitamin B Complex 1 cap 07/29/24 09:00 Vitamin B Complex Capsule PO DAILY [facility] Vitamin D 200 units 07/29/24 09:00 Cholecalciferol 200 Units Tablet PO DAILY [facility] Radiology Results: ITS Impressions Chest X-Ray 07/28/24 12:23 IMPRESSION: 1: NO ACUTE CARDIOPULMONARY DISEASE. Labs Labs: Laboratory Results - last 24 hr 07/28/24 07/28/24 07/28/24 11:52 14:20 17:38 WBC 7.5 RBC 4.58 Hgb 14.2 Hct 42.3 MCV 92.4 MCH 31.0 MCHC 33.6 RDW 13.1 Plt Count 235 MPV 11.2 H Immature Gran % (Auto) 0.4 Neut % (Auto) 61.2 Lymph % (Auto) 30.1 [place]ette % (Auto) 6.5 Eos % (Auto) 0.9 Baso % (Auto) 0.9 Lymph # (Auto) 2.26 [place] # (Auto) 0.5 Eos # (Auto) 0.1 Baso # (Auto) 0.1 Abs Immat Gran (auto) 0.03 Absolute Neuts (auto) 4.6 Absolute Nucleated RBC 0.000 Nucleated RBC % 0.0 PT 13.2 INR 1.0 APTT 27.6 Sodium 139 Potassium 4.1 Chloride 103 Carbon Dioxide 23 Anion Gap 13 H BUN 18 H Creatinine 0.87 Estim Creat Clear Calc 47 Estimated GFR > 60 Glucose 95 Calcium 9.7 Total Bilirubin 0.6 AST 40 H ALT 33 Alkaline Phosphatase 70 Troponin I < 0.012 < 0.012 < 0.012 Total Protein 7.0 Albumin 4.4 Lipase 210 07/29/24 03:52 WBC 6.9 RBC 4.40 Hgb 13.6 Hct 41.1 MCV 93.4 MCH 30.9 MCHC 33.1 RDW 12.9 Plt Count 184 MPV 11.0 H Immature Gran % (Auto) 0.3 Neut % (Auto) 44.7 L Lymph % (Auto) 44.5 H [place] % (Auto) 6.9 Eos % (Auto) 2.6 Baso % (Auto) 1.0 Lymph # (Auto) 3.05 [place] # (Auto) 0.5 Eos # (Auto) 0.2 Baso # (Auto) 0.1 Abs Immat Gran (auto) 0.02 Absolute Neuts (auto) 3.1 Absolute Nucleated RBC 0.000 Nucleated RBC % 0.0 PT INR APTT Sodium 139 Potassium 3.6 Chloride 106 Carbon Dioxide 23 Anion Gap 10 BUN 23 H Creatinine 0.93 Estim Creat Clear Calc 40 Estimated GFR 59 Glucose 88 Calcium 9.2 Total Bilirubin AST ALT Alkaline Phosphatase Troponin I Total Protein Albumin Lipase
[2024-07-29] MEDS: VITAMIN B COMPLEX CAPSULE 1 CAP PO (08:17)
[2024-07-29] MEDS: LOSARTAN POTASSIUM 25 MG TABLET PO (08:17)
[2024-07-29] MEDS: ATORVASTATIN 40 MG TABLET PO (08:18)
[2024-07-29] MEDS: ASPIRIN 81 MG CHEWABLE TABLET PO (08:18)
[2024-07-29] MEDS: MULTIVITAMINS /C LUTEIN (CENTRUM SILVER) TABLET *BKC 1 TAB PO (08:18)
[2024-07-29] MEDS: CHOLECALCIFEROL 200 UNITS TABLET PO (08:20)
[2024-07-29] MEDS: RIVASTIGMINE TARTRATE 4.6 MG PATCH 1 PATCH TRANSDERM (08:31)
--- NOTE | 2024-07-29 09:23 | P.CONGI_ITS ---
Assessment and Plan Assessment and plan (1) Epigastric pain: Code(s): R10.13 - Epigastric pain Status: Acute (2) GERD (gastroesophageal reflux disease): Qualifiers: Esophagitis presence: esophagitis presence not specified Qualified Code(s): K21.9 - Gastro-esophageal reflux disease without esophagitis Code(s): K21.9 - Gastro-esophageal reflux disease without esophagitis Status: Acute Plan 1. Epigastric pain /Reflux: Last EGD if every was > 20 years ago. Patient admits to intermittent epigastric/substernal pain that is intermittent and what she describes as a pressure sensation. This pain gets worse with deep inspiration, cough or deep palpation of the sternum but no correlation with food intake. Pain was more severe yesterday while doing a chemical stress test and is now down to a 2/10. Patient has been on Protonix 40 mg daily since November 2022 without any change in symptoms. On Eliquis daily [employer] but denies NSAID or ASA use. Normal CBC, lipase and LFT's except a mildly elevated AST of 40. DDX: Acid vs nonacid reflux vs motility disorder vs PUD vs musculoskeletal. Per patient she is scheduled to have more advanced imaging of the chest at [facility] after discharge. * Will check H-Pylori and treat if positive * Plan for outpatient follow up to discuss scheduling EGD as there is no indication for emergent inpatient endoscopic evaluation at this time * Continue Protonix 40 mg daily Thank you very much for allowing me to share in the care of this very nice patient. This report may have been done utilizing a voice recognition system. Attempts have been made to correct errors. However, there may be uncorrected grammatical, spelling, and recognition errors present. GI Consult Note Consult date/time: 07/29/24 09:23 Reason for consult: Epigastric pain HPI: Chrissy Hernandez is a 74 year old female with PMSH of A-Fib, migraines, Staci, hypothyroidism, anxiety, Alzheimer and HLD. Patient presented to the ER yesterday after she started having chest pain while having a stress test performed. Patient admitted for chest pain, A-Fib and COVID. GI has been consulted for epigastric pain. Patient was accompanied by her Abiel who was present at her bedside throughout the entire visit. Patient with a Hx of COVID 19 but denies active infection. Patient admits to epigastric pain that intermittent and described as a pressure sensation. This pain has been occurring for a few months and has no correlation with food intake but gets worse with deep inspiration, cough, or deep palpation of the sternum. Her pain was more severe yesterday during her cardiac stress test but has now improved to a 2/10. Patient was having a cardiac workup for clearance for upcoming knee replacement that has not been scheduled yet. She also admits to reflux symptoms that she describes as a burning or pressure sensation that has been occcuring since Friday. Prior to admission that patient was on Protonix 40 mg daily since November of 2022 with no significant change in symptoms. She is taking Metamucil daily and admits to daily BM's that are formed and non urgent but occasionally her stool will be more loose and increase in frequency and when this happens she takes PRN Imodium and denies any constipation after taking the medication. Denies nausea, vomiting, bloating, odynophagia, dysphagia, regurgitation, constipation, hematochezia or melena. Patient is on Eliquis prior to admission but denies NSAID or aspirin use. She is a non smoker, non drinker and denies marijuana use. Family Hx negative for CRC or IBD. ENDOSCOPY HISTORY: EGD: Denies EGD within 20 years COLONOSCOPY: 10/28/[address] Kramer and per patient she has had another colonoscopy since then while in [place] and a 3-5 year repeat was recommended LABS AND STOOL STUDIES: LABS 07/29/2024: Sodium 139, potassium 3.6, BUN 23, creatinine 0.93 and GFR 59 WBC's 7, Hgb 14, Hct 41, MCV 93 and platelets 184, calcium 9.2 LABS 07/28/2024: Total bilirubin 0.6, AST 40, ALT 33, Alk Phos 70 and albumin 4.4 Lipase 210, INR 1.0 troponin negative x3 IMAGING: Chest Xray 07/28/2024: IMPRESSION: 1: NO ACUTE CARDIOPULMONARY DISEASE. Review of Systems 2 Constitutional: Constitutional: Reports as per HPI ENT: Reports as per HPI Cardiovascular: Cardiovascular: Reports as per HPI, Denies chest pain and Denies dyspnea Respiratory: Respiratory: Denies cough and Denies dyspnea Gastrointestinal: Gastrointestinal: Reports as per HPI Musculoskeletal: Musculoskeletal: Reports as per HPI Integumentary/Breasts: Skin/Breast: Reports as per HPI Neurologic: Comments: post cva Psychiatric: Psychiatric: Reports as per HPI Endocrine: Endocrine: Reports no additional endocrine complaints Hematologic/Lymphatic: Hematologic/Lymphatic: Reports no additional hematologic/lymphatic complaints [facility] Past Medical History Medical History (Updated 07/29/24 @ 11:00 by Katarzyna Dobbs APRN) Anxiety 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 Social History Social History Smoking status: Former smoker Tobacco type: cigarettes Second hand tobacco smoke exposure: Yes Smoking end date: 04/28/82 Alcohol intake: current Drinks per week: 14 Substance use: former Substance use type: marijuana Last use: 1974 Do You Feel Safe in your Home?: Yes Lack of Transportation: YES Lack of Food: Never True Current Housing: I Have Housing Concerned About Future Housing: No Difficulty Paying Gas/Electric Bills: No Difficulty Paying for Meds: No Currently Unemployed: No Education: Master's Degree or Higher Difficulty w/ Childcare or Family Care: No Living arrangements: with family Gender identity (if verbalized by the patient): Female Spiritual care concerns: No Meds Home Medications and Allergies Home Medications ?Medication ?Instructions ?Recorded ?Confirmed ?Type epinephrine 0.3 mg/0.3 mL 0.3 mg IM ONCE PRN anaphylaxis 05/24/19 07/28/24 History injection, auto-injector (EpiPen) [id number]-eyai-lutein tablet 1 tablet PO DAILY 05/25/19 07/28/24 History vitamin B complex 1 tablet PO DAILY 05/25/19 07/28/24 History apixaban 5 mg tablet (Eliquis) 5 mg PO BID 05/11/24 07/28/24 History atorvastatin 40 mg tablet (Lipitor) 40 mg PO DAILY 05/11/24 07/28/24 History levothyroxine 25 mcg capsule 25 mcg PO DAILY 05/11/24 07/28/24 History losartan 25 mg tablet 25 mg PO DAILY 05/11/24 07/28/24 History pantoprazole 40 mg tablet,delayed 40 mg PO QHS 05/11/24 07/28/24 History release (Protonix) sertraline 50 mg tablet 50 mg PO DAILY 05/11/24 07/28/24 History rivastigmine 4.6 mg/24 hour 4.6 mg transdermal .q24 07/28/24 07/28/24 History transdermal patch cholecalciferol (vitamin D3) 125 125 mcg PO DAILY 07/29/24 07/29/24 History mcg (5,000 unit) capsule folic acid 800 mcg tablet 800 mcg PO DAILY 07/29/24 07/29/24 History Allergies Allergy/AdvReac Type Severity Reaction Status Date / Time trimethoprim Allergy Mild trimethoprim Verified 07/28/24 16:19 ([id number]) bacitracin Allergy Unknown bacitracin Verified 07/28/24 16:19 ([id number]) clarithromycin Allergy Unknown clarithromycin Verified 07/28/24 16:19 ([id number]) diphenhydramine Allergy Unknown diphenhydramine Verified 07/28/24 16:19 ([id number]) nickel Allergy Unknown Unknown Verified 07/28/24 16:19 Penicillins Allergy Unknown Penicillins Verified 07/28/24 16:19 ([id number]) pseudoephedrine Allergy Unknown pseudoephedrine Verified 07/28/24 16:19 ([id number]) silicone Allergy Unknown silicone Verified 07/28/24 16:19 ([id number]) Sulfa (Sulfonamide Allergy Unknown Sulfa Verified 07/28/24 16:19 Antibiotics) (Sulfonamide Antibiotics) ([id number]) bee venom protein (honey bee) Allergy Swelling Verified 07/28/24 16:19 cinnamon Allergy Anaphylaxis Verified 07/28/24 16:19 coconut Allergy Hives Verified 07/28/24 16:19 loratadine Allergy Insomnia Verified 07/28/24 16:19 Vital Signs Vital Signs - 24 hr 07/28/24 11:30 07/28/24 11:44 07/28/24 11:46 Temperature 97.6 F Pulse Rate 63 61 Respiratory Rate 16 13 Blood Pressure 134/65 134/65 Pulse Oximetry 100 100 100 Oxygen Delivery Room Air Room Air Fraction of Inspired Oxygen 07/28/24 12:00 07/28/24 14:00 07/28/24 14:34 Temperature Pulse Rate 63 63 65 Respiratory Rate 13 17 17 Blood Pressure 124/78 120/103 H 116/81 Pulse Oximetry 95 95 100 Oxygen Delivery Fraction of Inspired Oxygen 07/28/24 15:56 07/28/24 16:00 07/28/24 16:02 Temperature 98.6 F Pulse Rate 65 60 Respiratory Rate 20 Blood Pressure 129/58 L Pulse Oximetry 100 Oxygen Delivery Room Air Fraction of Inspired Oxygen 07/28/24 18:00 07/28/24 19:55 07/28/24 20:00 Temperature 99.0 F Pulse Rate 64 60 Respiratory Rate 20 Blood Pressure 148/56 H Pulse Oximetry 99 Oxygen Delivery Room Air Fraction of Inspired Oxygen 07/28/24 20:00 07/28/24 20:39 07/28/24 22:00 Temperature Pulse Rate 68 59 L Respiratory Rate Blood Pressure Pulse Oximetry 98 Oxygen Delivery Room Air Fraction of Inspired Oxygen 21 07/28/24 23:50 07/29/24 00:00 07/29/24 00:00 Temperature 98.0 F Pulse Rate 65 62 Respiratory Rate 20 Blood Pressure 126/55 L Pulse Oximetry 98 Oxygen Delivery Room Air Fraction of Inspired Oxygen 07/29/24 02:00 07/29/24 03:37 07/29/24 04:00 Temperature Pulse Rate 54 L 51 L Respiratory Rate Blood Pressure Pulse Oximetry Oxygen Delivery Room Air Fraction of Inspired Oxygen 07/29/24 04:12 07/29/24 06:00 07/29/24 07:47 Temperature 97.7 F 97.8 F Pulse Rate 50 L 60 55 L Respiratory Rate 20 18 Blood Pressure 128/58 L 124/56 L Pulse Oximetry 97 95 Oxygen Delivery Fraction of Inspired Oxygen Exam 2 Const: General: cooperative, healthy appearing, comfortable, no acute distress and well developed Orientation/consciousness: oriented to person, oriented to place, oriented to time and patient oriented x3 HENMT: Head: normal to inspection, normocephalic and atraumatic Mouth: Yes Normal oral and palatal mucosa present and Yes moist mucous membranes Eyes: General: appearance normal, both eyes and all related structures C onjunctivae: conjunctivae normal Sclera: sclerae normal Pupils: Equal, round and reactive pupils present Neck: Neck: normal visual inspection Chest: Chest palpation & inspection: normal inspection of the chest Resp: Effort & Inspection: normal respiratory effort and able to speak in complete sentences Auscultation: clear to auscultation bilaterally Cardio: Jugular venous distension: no JVD Rate: regular rate Rhythm: r egular rhythm Heart sounds: S1 normal heart sound present and S2 normal heart sound present GI: Inspection: normal to inspection GI Palp: Yes Soft to palpation and Yes No hepatosplenomegaly present Auscultation: normal bowel sounds Rectal Exam: deferred Skin: General skin exam: normal color and no rashes or lesions noted Neuro: General: oriented to person, oriented to place, oriented to time and patient oriented x3 Cranial nerves: Yes Equal, round and reactive pupils present Speech: normal speech Extrem: General: normal to inspection and no clubbing, cyanosis or edema Psych: Appearance: grossly normal and well kempt Affect: normal affect Results Labs 07/29/24 03:52 07/29/24 03:52 Labs: Short CBC 07/28/24 07/29/24 Range/Units 11:52 03:52 WBC 7.5 6.9 (4.5-10.0) K/mm3 Hgb 14.2 13.6 (12.0-15.0) g/dL Hct 42.3 41.1 (37.0-47.0) % Plt Count 235 184 (150-375) k/mm3 BMP 07/28/24 07/29/24 11:52 03:52 Sodium 139 139 Potassium 4.1 3.6 Chloride 103 106 Carbon Dioxide 23 23 BUN 18 H 23 H Creatinine 0.87 0.93 Glucose 95 88 Calcium 9.7 9.2 Cardiac Enzymes 07/28/24 07/28/24 07/28/24 Range/Units 11:52 14:20 17:38 Troponin I < 0.012 < 0.012 < 0.012 (0.000-0.034) ng/mL Liver Function 07/28/24 Range/Units 11:52 Total Bilirubin 0.6 (0.2-1.3) mg/dL AST 40 H (14-36) U/L ALT 33 (6-35) U/L Alkaline Phosphatase 70 (38-126) U/L Albumin 4.4 (3.5-5.1) g/dL
--- NOTE | 2024-07-29 10:40 | P.CONCA_ITS ---
Assessment and Plan Assessment and plan (1) Chest pain: Code(s): R07.9 - Chest pain, unspecified Status: Acute Assessment and Plan: During stress test 07/28, she developed chest pain. The stress test was normal, however, given her prolonged chest pain, she was sent to the ED for further evaluation. EKGs show sinus rhythm, nonspecific STTW abnormality. Troponins negative x 3. Patient was admitted for further evaluation. Patient states she gets intermittent diffuse chest tightness. Occurs randomly, not associated with exertion. Has been ongoing for a few months now. She had similar symptoms back in 2022 in [place]. Had undergone LHC in November 2022 which showed 10% proximal and mid LAD disease, otherwise no other coronary disease. was able to show me the full LHC report. Her medical team was not able to figure out what was causing her chest pain at that time. It is clear that these symptoms are a source of anxiety and stress for the patient. Although LHC in November 2022 showed only very mild CAD, I did offer repeat LHC to the patient to ensure she has not developed obstructive CAD since then (unlikely given the recent LHC). Patient would prefer to avoid procedures if possible. Discussed option of outpatient coronary CTA, which she would like to pursue. Will have our office arrange. Discussed with patient that her chest pain may be due to microvascular angina (although did not get much relief from NTG) or possible coronary spasm. In addition, patient does have reproducible chest wall tenderness on exam, which does elicit similar pain, and this is likely contributing to her symptoms. Recommend Tylenol for pain control. GI has been consulted as well to evaluate for GI etiology. From my standpoint, she can be discharged home. Will have our office arrange follow up. (2) PAF (paroxysmal atrial fibrillation): Code(s): I48.0 - Paroxysmal atrial fibrillation Status: Chronic Assessment and Plan: Can resume Eliquis. History of Present Illness History of Present Illness Consult date/time: 07/29/24 10:40 Requesting physician: Donald Mendoza MD Consult reason: chest pain Reason For Visit: Chest pain Narrative: Chrissy is a 74 year old female with paroxysmal atrial fibrillation who was undergoing nuclear stress test for preoperative evaluation prior to knee surgery. During stress test, she developed chest pain. The stress test was normal, however, given her prolonged chest pain, she was sent to the ED for further evaluation. EKGs show sinus rhythm, nonspecific STTW abnormality. Troponins negative x 3. Patient was admitted for further evaluation. Patient states she gets intermittent diffuse chest tightness. Occurs randomly, not associated with exertion. Has been ongoing for a few months now. She had similar symptoms back in 2022 in [place]. Had undergone LHC which showed 10% proximal and mid LAD disease, otherwise no other coronary disease. was able to show me the full LHC report. They were not able to figure out what was causing her chest pain at that time. 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 Social History Social History Smoking status: Former smoker Tobacco type: cigarettes Second hand tobacco smoke exposure: Yes Smoking end date: 04/28/82 Alcohol intake: current Drinks per week: 14 Substance use: former Substance use type: marijuana Last use: 1974 Do You Feel Safe in your Home?: Yes Lack of Transportation: YES Lack of Food: Never True Current Housing: I Have Housing Concerned About Future Housing: No Difficulty Paying Gas/Electric Bills: No Difficulty Paying for Meds: No Currently Unemployed: No Education: Master's Degree or Higher Difficulty w/ Childcare or Family Care: No Living arrangements: with family Gender identity (if verbalized by the patient): Female Spiritual care concerns: No Meds Home Medications and Allergies Home Medications ?Medication ?Instructions ?Recorded ?Confirmed ?Type cholecalciferol (vitamin D3) 25 200 unit PO DAILY 05/24/19 07/28/24 History mcg (1,000 unit) capsule epinephrine 0.3 mg/0.3 mL 0.3 mg IM ONCE PRN anaphylaxis 05/24/19 07/28/24 History injection, auto-injector (EpiPen) pmvsmltu-dxyhrps-ecej-lutein tablet 1 tablet PO DAILY 05/25/19 07/28/24 History vitamin B complex 1 tablet PO DAILY 05/25/19 07/28/24 History apixaban 5 mg tablet (Eliquis) 5 mg PO BID 05/11/24 07/28/24 History atorvastatin 40 mg tablet (Lipitor) 40 mg PO DAILY 05/11/24 07/28/24 History levothyroxine 25 mcg capsule 25 mcg PO DAILY 05/11/24 07/28/24 History losartan 25 mg tablet 25 mg PO DAILY 05/11/24 07/28/24 History pantoprazole 40 mg tablet,delayed 40 mg PO QHS 05/11/24 07/28/24 History release (Protonix) sertraline 50 mg tablet 50 mg PO DAILY 05/11/24 07/28/24 History rivastigmine 4.6 mg/24 hour 4.6 mg transdermal .q24 07/28/24 07/28/24 History transdermal patch folic acid 800 mcg tablet 800 mcg PO DAILY 07/29/24 07/29/24 History Allergies Allergy/AdvReac Type Severity Reaction Status Date / Time trimethoprim Allergy Mild trimethoprim Verified 07/28/24 16:19 ([id number]) bacitracin Allergy Unknown bacitracin Verified 07/28/24 16:19 ([id number]) clarithromycin Allergy Unknown clarithromycin Verified 07/28/24 16:19 ([id number]) diphenhydramine Allergy Unknown diphenhydramine Verified 07/28/24 16:19 ([id number]) nickel Allergy Unknown Unknown Verified 07/28/24 16:19 Penicillins Allergy Unknown Penicillins Verified 07/28/24 16:19 ([id number]) pseudoephedrine Allergy Unknown pseudoephedrine Verified 07/28/24 16:19 ([id number]) silicone Allergy Unknown silicone Verified 07/28/24 16:19 ([id number]) Sulfa (Sulfonamide Allergy Unknown Sulfa Verified 07/28/24 16:19 Antibiotics) (Sulfonamide Antibiotics) ([id number]) bee venom protein (honey bee) Allergy Swelling Verified 07/28/24 16:19 cinnamon Allergy Anaphylaxis Verified 07/28/24 16:19 coconut Allergy Hives Verified 07/28/24 16:19 loratadine Allergy Insomnia Verified 07/28/24 16:19 Vital Signs Vital Signs - 24 hr 07/28/24 11:30 07/28/24 11:44 07/28/24 11:46 Temperature 36.4 C Pulse Rate 63 61 Respiratory Rate 16 13 Blood Pressure 134/65 134/65 Pulse Oximetry 100 100 100 Oxygen Delivery Room Air Room Air Fraction of Inspired Oxygen 07/28/24 12:00 07/28/24 14:00 07/28/24 14:34 Temperature Pulse Rate 63 63 65 Respiratory Rate 13 17 17 Blood Pressure 124/78 120/103 H 116/81 Pulse Oximetry 95 95 100 Oxygen Delivery Fraction of Inspired Oxygen 07/28/24 15:56 07/28/24 16:00 07/28/24 16:02 Temperature 37.0 C Pulse Rate 65 60 Respiratory Rate 20 Blood Pressure 129/58 L Pulse Oximetry 100 Oxygen Delivery Room Air Fraction of Inspired Oxygen 07/28/24 18:00 07/28/24 19:55 07/28/24 20:00 Temperature 37.2 C Pulse Rate 64 60 Respiratory Rate 20 Blood Pressure 148/56 H Pulse Oximetry 99 Oxygen Delivery Room Air Fraction of Inspired Oxygen 07/28/24 20:00 07/28/24 20:39 07/28/24 22:00 Temperature Pulse Rate 68 59 L Respiratory Rate Blood Pressure Pulse Oximetry 98 Oxygen Delivery Room Air Fraction of Inspired Oxygen 21 07/28/24 23:50 07/29/24 00:00 07/29/24 00:00 Temperature 36.7 C Pulse Rate 65 62 Respiratory Rate 20 Blood Pressure 126/55 L Pulse Oximetry 98 Oxygen Delivery Room Air Fraction of Inspired Oxygen 07/29/24 02:00 07/29/24 03:37 07/29/24 04:00 Temperature Pulse Rate 54 L 51 L Respiratory Rate Blood Pressure Pulse Oximetry Oxygen Delivery Room Air Fraction of Inspired Oxygen 07/29/24 04:12 07/29/24 06:00 07/29/24 07:47 Temperature 36.5 C 36.6 C Pulse Rate 50 L 60 55 L Respiratory Rate 20 18 Blood Pressure 128/58 L 124/56 L Pulse Oximetry 97 95 Oxygen Delivery Fraction of Inspired Oxygen Exam 2 Const: General: comfortable and no acute distress HENMT: Mouth: Yes moist mucous membranes Chest: Other: Reproducible chest wall tenderness Resp: Effort & Inspection: normal respiratory effort Cardio: Rate: regular rate Rhythm: regular rhythm Heart sounds: no murmurs Skin: General skin exam: normal color Neuro: Speech: normal speech Psych: Mental Status: mental status grossly normal Affect: normal affect Results Labs and Meds 07/29/24 03:52 07/29/24 03:52 Lab results: Cardiac Enzymes 07/28/24 07/28/24 07/28/24 Range/Units 11:52 14:20 17:38 AST 40 H (14-36) U/L Troponin I < 0.012 < 0.012 < 0.012 (0.000-0.034) ng/mL Coagulation 07/28/24 Range/Units 11:52 PT 13.2 (11.1-14.7) Seconds APTT 27.6 (22.3-36.8) Seconds CBC 07/28/24 07/29/24 Range/Units 11:52 03:52 WBC 7.5 6.9 (4.5-10.0) K/mm3 RBC 4.58 4.40 (4.2-5.4) M/mm3 Hgb 14.2 13.6 (12.0-15.0) g/dL Hct 42.3 41.1 (37.0-47.0) % Plt Count 235 184 (150-375) k/mm3 Lymph # (Auto) 2.26 3.05 (0.9-3.2) K/mm3 [place] # (Auto) 0.5 0.5 (0.1-0.6) K/mm3 Eos # (Auto) 0.1 0.2 (0-0.3) K/mm3 Baso # (Auto) 0.1 0.1 (0.0-0.1) K/mm3 Comprehensive Metabolic Panel 07/28/24 07/29/24 Range/Units 11:52 03:52 Sodium 139 139 (137-145) mmol/L Potassium 4.1 3.6 (3.4-5.0) mmol/L Chloride 103 106 (98-107) mmol/L Carbon Dioxide 23 23 (22-30) mmol/L BUN 18 H 23 H (7-17) mg/dL Creatinine 0.87 0.93 (0.7-1.0) mg/dL Glucose 95 88 (65-110) mg/dL Calcium 9.7 9.2 (8.4-10.2) mg/dL AST 40 H (14-36) U/L ALT 33 (6-35) U/L Alkaline Phosphatase 70 (38-126) U/L Total Protein 7.0 (6.3-8.2) g/dL Albumin 4.4 (3.5-5.1) g/dL Intake and Output 07/28/24 07/29/24 07/29/24 23:59 07:59 15:59 Intake Total 430 550 Output Total 150 800 Balance 280 -250 Intake: Oral 430 550 Output: Urine 150 800 Catheter Urine 0 External/Condom 0 Other: # Unmeasured Voids 3 Number of Bowel Movements Today 1 Patient Weight 07/29/24 23:59 Weight 62.6 kg
[2024-07-29] MEDS: FOLIC ACID 0.4 MG TABLET 0.8 MG PO (11:21)
--- NOTE | 2024-07-29 12:01 | P.DS_ITS ---
DS: Admitting Diagnosis Discharge Date 07/29/24 Admitting Diagnosis (1) Chest pain in adult: Code(s): R07.9 - Chest pain, unspecified Status: Acute (2) PAF (paroxysmal atrial fibrillation): Code(s): I48.0 - Paroxysmal atrial fibrillation Status: Chronic (3) COVID-19: Code(s): U07.1 - COVID-19 Status: Acute DS: Discharge Diagnosis Discharge Diagnosis (1) Chest pain in adult: Code(s): R07.9 - Chest pain, unspecified Status: Acute (2) PAF (paroxysmal atrial fibrillation): Code(s): I48.0 - Paroxysmal atrial fibrillation Status: Chronic (3) COVID-19: Code(s): U07.1 - COVID-19 Status: Acute DS: Summary Hospital Course Hospital Course: 74 y/o F with PMH of paroxysmal atrial fibrillation, migraines, Staci's, hypothyroidism, and anxiety presents here with chest pain. The following med issues have been addressed during hospitalization Chest pain in adult: Code(s): R07.9 - Chest pain, unspecified Status: Acute Assessment and Plan: EKG, initial: Sinus rhythm with short MI interval, early precordial R/S transition, borderline ST-T-wave abnormality enter/high lateral leads, baseline artifact. When compared to old EKG, heart rate has increased. Repeated EKG shows no dynamic changes - CXR: No acute cardiopulmonary disease. - Troponin: < 0.012 x2, 6 hour ordered - ASA 324 given, continue as 81 daily - SL nitro PRN Consulted human services supervisor for evaluation treatment Patient reported she had a patent coronary artery evaluation by cardiac catheterization 2022 [facility] will see patient in the office and has cleared patient to be discharged PAF (paroxysmal atrial fibrillation): Code(s): I48.0 - Paroxysmal atrial fibrillation Status: Chronic Assessment and Plan: home medications: Hold Eliquis in case of need for procedures. Not currently on a anti dysrhythmic medication. Resume Eliquis per human services supervisor GERD Patient has a persistent epigastric discomfort chest Patient has been on Protonix for longtime, need to rule out esophagitis, gastritis, ulcers rec pt to see GI for evaluation treatment, referral per PCP Time Spent with Patient Time attestation: Total time spent providing and/or coordinating discharge services: Exam Narrative: GENERAL: Pleasant, in no acute distress. Well-nourished. - EYES: EOMI. Anicteric. - HENT: Moist mucous membranes. - LUNGS: Clear to auscultation bilateral ly, no wheezing, rhonchi, or rales. - CARDIOVASCULAR: Regular rate and rhyth m. No murmur. No JVD. - ABDOMEN: Soft, epigastric discomfort and non-distended. No palpable masses. - EXTREMITIES: No edema. Peripheral puls es 2+. Non-tender. - NEUROLOGIC: No focal neurological defi cits. CN II-XII grossly intact. - PSYCHIATRIC: Awake, Alert and oriented x 3. Appropriate mood and affect. - SKIN: No rashes or lesions. Warm. - LYMPH: No cervical lymphadenopathy. DS: Data Data Completed and Pending Labs on day of discharge: Labs from last 24 hours 07/29/24 07/28/24 07/28/24 03:52 17:38 14:20 WBC 6.9 RBC 4.40 Hgb 13.6 Hct 41.1 MCV 93.4 MCH 30.9 MCHC 33.1 RDW 12.9 Plt Count 184 MPV 11.0 H Immature Gran % (Auto) 0.3 Neut % (Auto) 44.7 L Lymph % (Auto) 44.5 H [place] % (Auto) 6.9 Eos % (Auto) 2.6 Baso % (Auto) 1.0 Lymph # (Auto) 3.05 [place] # (Auto) 0.5 Eos # (Auto) 0.2 Baso # (Auto) 0.1 Abs Immat Gran (auto) 0.02 Absolute Neuts (auto) 3.1 Absolute Nucleated RBC 0.000 Nucleated RBC % 0.0 PT INR APTT Sodium 139 Potassium 3.6 Chloride 106 Carbon Dioxide 23 Anion Gap 10 BUN 23 H Creatinine 0.93 Estim Creat Clear Calc 40 Estimated GFR 59 Glucose 88 Calcium 9.2 Total Bilirubin AST ALT Alkaline Phosphatase Troponin I < 0.012 < 0.012 Total Protein Albumin Lipase 07/28/24 11:52 WBC 7.5 RBC 4.58 Hgb 14.2 Hct 42.3 MCV 92.4 MCH 31.0 MCHC 33.6 RDW 13.1 Plt Count 235 MPV 11.2 H Immature Gran % (Auto) 0.4 Neut % (Auto) 61.2 Lymph % (Auto) 30.1 [place] % (Auto) 6.5 Eos % (Auto) 0.9 Baso % (Auto) 0.9 Lymph # (Auto) 2.26 [place] # (Auto) 0.5 Eos # (Auto) 0.1 Baso # (Auto) 0.1 Abs Immat Gran (auto) 0.03 Absolute Neuts (auto) 4.6 Absolute Nucleated RBC 0.000 Nucleated RBC % 0.0 PT 13.2 INR 1.0 APTT 27.6 Sodium 139 Potassium 4.1 Chloride 103 Carbon Dioxide 23 Anion Gap 13 H BUN 18 H Creatinine 0.87 Estim Creat Clear Calc 47 Estimated GFR > 60 Glucose 95 Calcium 9.7 Total Bilirubin 0.6 AST 40 H ALT 33 Alkaline Phosphatase 70 Troponin I < 0.012 Total Protein 7.0 Albumin 4.4 Lipase 210 Discharge Plan Discharge Attending physician on discharge: Jeanette Chávez Consulting providers: Manan Chin; Attila Nixon; Katarzyna Dobbs; Fifi Webber; Joni Obrien Discharging Clinician: Jeanette Chávez Anticipated Discharge Date/Time: 07/29/24 12:02 Patient Disposition: Home Activity: as tolerated Diet: as tolerated and heart healthy Patient Instructions: Chest Pain (DC) Patient Language: Kyrgyz Stand Alone Forms: General Discharge Information Follow-up/Referrals: Manan Chin MD [Physician] - (see human services supervisor at scheduled appointment ) Allyssa,Hector Hayes MD [Primary Care Provider] - (see PCP in one week ) Attila Nixon MD [Physician] - (see GI at scheduled appointment ) Discharge Medications: Continued Eliquis 5 mg tablet 5 mg PO BID losartan 25 mg tablet 25 mg PO HS pantoprazole [Protonix] 40 mg tablet,delayed release (DR/EC) 40 mg PO QHS levothyroxine 25 mcg capsule 25 mcg PO DAILY atorvastatin [Lipitor] 40 mg tablet 40 mg PO DAILY epinephrine [EpiPen] 0.3 mg/0.3 mL auto-injector 0.3 mg IM ONCE PRN (Reason: anaphylaxis) Rx Instructions: as a single dose dbqazwgh-ojjgsrl-axnm-lutein Tablet 1 tablet PO DAILY vitamin B complex Tablet 1 tablet PO DAILY rivastigmine 4.6 mg/24 hour patch 24 hour 4.6 mg transdermal .q24 folic acid 800 mcg tablet 800 mcg PO DAILY cholecalciferol (vitamin D3) 125 mcg (5,000 unit) capsule 125 mcg PO DAILY sertraline 25 mg tablet 12.5 mg PO HS calcium carbonate [Calcium 600] 600 mg calcium (1,500 mg) tablet 600 mg PO DAILY Other Ambulatory Orders: H pylori Ag Stool (Routine) Timeframe: 3 Days Location: Determined by Patient Ordered By: Jeanette Chávez Date of admission: 07/28/24 15:05 Primary Care Provider: Allyssa,Hector Hayes Admitting Provider: Sanjuana Jernigan Attending physician on admission: Jeanette Chávez Condition: Stable
--- NOTE | 2024-07-29 12:05 | PM.DS ---
DS: Admitting Diagnosis Discharge Date 07/29/24 Admitting Diagnosis (1) Chest pain in adult: Code(s): R07.9 - Chest pain, unspecified Status: Acute (2) PAF (paroxysmal atrial fibrillation): Code(s): I48.0 - Paroxysmal atrial fibrillation Status: Chronic (3) COVID-19: Code(s): U07.1 - COVID-19 Status: Acute DS: Discharge Diagnosis Discharge Diagnosis (1) Chest pain in adult: Code(s): R07.9 - Chest pain, unspecified Status: Acute (2) PAF (paroxysmal atrial fibrillation): Code(s): I48.0 - Paroxysmal atrial fibrillation Status: Chronic (3) COVID-19: Code(s): U07.1 - COVID-19 Status: Acute DS: Summary Hospital Course Hospital Course: 74 y/o F with PMH of paroxysmal atrial fibrillation, migraines, Staci's, hypothyroidism, and anxiety presents here with chest pain. Chest pain in adult: Code(s): R07.9 - Chest pain, unspecified Status: Acute Assessment and Plan: EKG, initial: Sinus rhythm with short VA interval, early precordial R/S transition, borderline ST-T-wave abnormality enter/high lateral leads, baseline artifact. When compared to old EKG, heart rate has increased. Repeated EKG shows no dynamic changes - CXR: No acute cardiopulmonary disease. - Troponin: < 0.012 x2, 6 hour ordered - ASA 324 given, continue as 81 daily - SL nitro PRN Consult laborer [facility] for evaluation treatment Patient reported she had a patent coronary artery evaluation by cardiac catheterization 2022 ruled out ACS per laborer or[facility] PAF (paroxysmal atrial fibrillation): Code(s): I48.0 - Paroxysmal atrial fibrillation Status: Chronic Assessment and Plan: home medications: Hold Eliquis in case of need for procedures. Not currently on a anti dysrhythmic medication. Resume Eliquis per laborer orchard GERD Patient has a persistent epigastric discomfort chest Patient has been on Protonix for longtime, need to rule out esophagitis, gastritis, ulcers Consult GI for evaluation treatment GI rec outpatient EDG Time Spent with Patient Time attestation: Total time spent providing and/or coordinating discharge services: Exam Narrative: GENERAL: Pleasant, in no acute distress. Well-nourished. - EYES: EOMI. Anicteric. - HENT: Moist mucous membranes. - LUNGS: Clear to auscultation bilaterally, no wheezing, rhonchi, or rales. - CARDIOVASCULAR: Regular rate and rhythm. No murmur. No JVD. - ABDOMEN: Soft, epigastric discomfort and non-distended. No palpable masses. - EXTREMITIES: No edema. Peripheral pulses 2+. Non-tender. - NEUROLOGIC: No focal neurological deficits. CN II-XII grossly intact. - PSYCHIATRIC: Awake, Alert and oriented x 3. Appropriate mood and affect. - SKIN: No rashes or lesions. Warm. - LYMPH: No cervical lymphadenopathy. DS: Data Data Completed and Pending Labs on day of discharge: Labs from last 24 hours 07/29/24 07/28/24 07/28/24 03:52 17:38 14:20 WBC 6.9 RBC 4.40 Hgb 13.6 Hct 41.1 MCV 93.4 MCH 30.9 MCHC 33.1 RDW 12.9 Plt Count 184 MPV 11.0 H Immature Gran % (Auto) 0.3 Neut % (Auto) 44.7 L Lymph % (Auto) 44.5 H [place] % (Auto) 6.9 Eos % (Auto) 2.6 Baso % (Auto) 1.0 Lymph # (Auto) 3.05 [place] # (Auto) 0.5 Eos # (Auto) 0.2 Baso # (Auto) 0.1 Abs Immat Gran (auto) 0.02 Absolute Neuts (auto) 3.1 Absolute Nucleated RBC 0.000 Nucleated RBC % 0.0 PT INR APTT Sodium 139 Potassium 3.6 Chloride 106 Carbon Dioxide 23 Anion Gap 10 BUN 23 H Creatinine 0.93 Estim Creat Clear Calc 40 Estimated GFR 59 Glucose 88 Calcium 9.2 Total Bilirubin AST ALT Alkaline Phosphatase Troponin I < 0.012 < 0.012 Total Protein Albumin Lipase 07/28/24 11:52 WBC 7.5 RBC 4.58 Hgb 14.2 Hct 42.3 MCV 92.4 MCH 31.0 MCHC 33.6 RDW 13.1 Plt Count 235 MPV 11.2 H Immature Gran % (Auto) 0.4 Neut % (Auto) 61.2 Lymph % (Auto) 30.1 [place] % (Auto) 6.5 Eos % (Auto) 0.9 Baso % (Auto) 0.9 Lymph # (Auto) 2.26 [place] # (Auto) 0.5 Eos # (Auto) 0.1 Baso # (Auto) 0.1 Abs Immat Gran (auto) 0.03 Absolute Neuts (auto) 4.6 Absolute Nucleated RBC 0.000 Nucleated RBC % 0.0 PT 13.2 INR 1.0 APTT 27.6 Sodium 139 Potassium 4.1 Chloride 103 Carbon Dioxide 23 Anion Gap 13 H BUN 18 H Creatinine 0.87 Estim Creat Clear Calc 47 Estimated GFR > 60 Glucose 95 Calcium 9.7 Total Bilirubin 0.6 AST 40 H ALT 33 Alkaline Phosphatase 70 Troponin I < 0.012 Total Protein 7.0 Albumin 4.4 Lipase 210 Discharge Plan Discharge Attending physician on discharge: Jeanette Chávez Consulting providers: Manan Chin; Attila Nixon Discharging Clinician: Jeanette Chávez Anticipated Discharge Date/Time: 07/29/24 12:02 Patient Disposition: Home, Self-Care Activity: as tolerated Diet: as tolerated and heart healthy Patient Instructions: Antibiotic Form Patient Language: Bulgarian Stand Alone Forms: General Discharge Information Follow-up/Referrals: Manan Chin MD [Physician] - (see laborer [facility] at scheduled appointment ) Allyssa,Hector Hayes MD [Primary Care Provider] - (see PCP in one week ) Attila Nixon MD [Physician] - (see GI at scheduled appointment ) Discharge Medications: Continued Eliquis 5 mg tablet 5 mg PO BID losartan 25 mg tablet 25 mg PO HS pantoprazole [Protonix] 40 mg tablet,delayed release (DR/EC) 40 mg PO QHS levothyroxine 25 mcg capsule 25 mcg PO DAILY atorvastatin [Lipitor] 40 mg tablet 40 mg PO DAILY epinephrine [EpiPen] 0.3 mg/0.3 mL auto-injector 0.3 mg IM ONCE PRN (Reason: anaphylaxis) Rx Instructions: as a single dose wfdwvofa-hyieamx-odfu-lutein Tablet 1 tablet PO DAILY vitamin B complex Tablet 1 tablet PO DAILY rivastigmine 4.6 mg/24 hour patch 24 hour 4.6 mg transdermal .q24 folic acid 800 mcg tablet 800 mcg PO DAILY cholecalciferol (vitamin D3) 125 mcg (5,000 unit) capsule 125 mcg PO DAILY sertraline 25 mg tablet 12.5 mg PO HS calcium carbonate [Calcium 600] 600 mg calcium (1,500 mg) tablet 600 mg PO DAILY Date of admission: 07/28/24 15:05 Primary Care Provider: Allyssa,Hector Hayes Admitting Provider: Sanjuana Jernigan Attending physician on admission: Sanjuana Jernigan Condition: Stable
== END 2024-07-29 13:49 | disposition home or self-care (01) ==
LOC: ANHED 12:43 → ANHIMU 15:14
PROVIDERS: Emergency Medicine; Student in an Organized Health Care Education/Training Program; Admitting Provider Internal Medicine; Emergency Provider Emergency Medicine; PCP Family Medicine; Visit Provider Hospitalist
DX: R07.89 Other chest pain (principal); R10.13 Epigastric pain; I48.0 Paroxysmal atrial fibrillation; Z86.16 Personal history of COVID-19; G30.9 Alzheimer's disease, unspecified; F02.80 Dementia in other diseases classified elsewhere, unspecified severity, without behavioral disturbance, psychotic disturbance, mood disturbance, and anxiety; I25.10 Atherosclerotic heart disease of native coronary artery without angina pectoris; K21.9 Gastro-esophageal reflux disease without esophagitis; F41.9 Anxiety disorder, unspecified; E78.5 Hyperlipidemia, unspecified; E06.3 Autoimmune thyroiditis; G43.909 Migraine, unspecified, not intractable, without status migrainosus; Z87.891 Personal history of nicotine dependence; Z79.01 Long term (current) use of anticoagulants; Z79.899 Other long term (current) drug therapy
CPT/HCPCS: 36415; 71045; 80048; 80053; 83690; 84484; 85025; 85610; 85730; 93005; 99285; A9270; G0378

== ENCOUNTER 2024-08-17 13:50 | Outpatient (CLI) | payer MEDICARE, OTHER, SELFPAY ==
[2024-08-17 15:45] LABS: Add Urine Microscopic? YES; Appearance Urine Turbid (Clear); Bacteria Urine None Seen /hpf; Bilirubin Urine Negative (Negative); Blood Urine Negative (Negative); Calcium Oxalate Crystals Urine Present /hpf; Color Urine Yellow (Yellow); Glucose Urine UA Negative (Negative); Ketones Urine Trace mg/dL (Negative); Leukocyte Esterase Ur Trace LEU/UL (Negative); Need Manual Microscopic Reviewed; Nitrate Urine Negative (Negative); Non Pathogenic Casts 0-2; Protein Urine Negative (Negative); RBC Urine 0-2 /hpf (0-2); Specific Grav Ur 1.024 (1.001-1.035); Squamous Epithelial Cell Urine None Seen /hpf (Few); Urobilinogen Urine 0.2 mg/dL (<2.0); WBC Urine 0-5 /hpf (0-3)
[2024-08-17 16:00] LABS: Urine Cotinine NEGATIVE
[2024-08-17 16:01] LABS: Hemoglobin A1C 5.5 % (<5.7)
--- OUTSIDE RECORDS SUMMARY | 2024-08-17 16:01 | XMS_ITS | Encounter Summary ---
Author Organization [facility] Healthcare Address [address] [place] [address] Care Team Providers Care Patient Assistant Name Role Phone Hector Spivey MD Primary Care Provider [phone] Encounter Details Date Type Department Care Team (Late st Contact Info) Description 07/29/2024 Results Follow-Up [facility] Medical Group Cardiology [address] [place] [address] Altaf Hogan MD [address] [place] [address] Social History Tobacco Use Types Packs/Day Years [...] points, staff should administer the PHQ-9) 0 08/02/2024 Comments Unknown Sex and Gender Information Value Date Recorded Sex Assigned at Not on file Legal Sex Female 12:10 PM CDT Gender Identity Female 02/17/2023 3:21 PM CDT Sexual Orientation Not on file documented as of this encounter Plan of Treatment Not on file documented as of this encounter Visit Diagnoses Not on filedocumented in this encounter Care Teams Patient Assistant Relationship Specialty Start Date End Date Hector Spivey MD PCP - General Family Medicine 04/11/21 Dr. Sally Storm [address] [facility] [address], [place] [address] Family Medicine 04/06/24 documented as of this encounter
--- OUTSIDE RECORDS SUMMARY | 2024-08-17 16:01 | XMS_ITS | Encounter Summary ---
Author Organization [facility] Healthcare Address [address] [place] [address] Care Team Providers Care Air Traffic Control Specialist Name Role Phone Hector Spivey MD Primary Care Provider [phone] Encounter Details Date Type Department Care Team (Late st Contact Info) Description 07/29/2024 Telephone [facility] Medical Group Cardiology [address] [place] [address] Altaf Hogan MD [address] [place] [address] Social History Tobacco Use Types Packs/Day [...] on file documented as of this encounter Miscellaneous Notes * Telephone Encounter - Etta Paul, RN - 07/29/2024 9:18 AM CDT Faxed stress test to the number requested. * Telephone Encounter - Chela Valera - 07/29/2024 8:33 AM CDT Valerie called from [facility] requesting stress test results be faxed to her office. Thank you. Contact: documented in this encounter Plan of Treatment Not on file documented as of this encounter Visit Diagnoses Not on filedocumented in this encounter Care Teams Air Traffic Control Specialist Relationship Specialty Start Date End Date Hector Spivey MD PCP - General Family Medicine 04/11/21 Dr. Sally Storm [address] [facility] [address], [place] [id number] Family Medicine 04/06/24 documented as of this encounter
--- OUTSIDE RECORDS SUMMARY | 2024-08-17 16:01 | XMS_ITS | Clinical Summary ---
Author Organization [facility] Address [address] [place] [address] Phone Care Team Providers Care Engineering Design Manager Name Role Phone Provider, Unknown Primary Care [...] age to complete this topic Insurance [facility]IC[facility] Care Teams Engineering Design Manager Relationship Specialty Start Date End Date Provider, Unknown UNKNOWN PCP - General 12/31/17
--- OUTSIDE RECORDS SUMMARY | 2024-08-17 16:01 | XMS_ITS | Referral Summary ---
Author Organization [facility] Virtual Care Address [address] [place] [phone] Phone Care Team Providers Care Service Tech Name Role Phone Hector Spivey MD Primary Care Provider [phone] Encounters Date Type Department Care Team Description 08/10/2024 8:15 AM CDT Ancillary Procedure [facility] Cardiology [address] [place] [address] [place] [phone] History of atrial fibrillation; Essential hypertension; Other chest pain 08/02/2024 9:30 AM CDT Office Visit [facility] Medical [facility] Family Medicine at [address] [place] [address] Hector Spivey MD Atypical chest pain (Primary Dx); History of atrial fibrillation; Gastroesophageal reflux disease without esophagitis; Essential hypertension; Age-related osteoporosis without current pathological fracture 07/30/2024 Telephone [facility] Family Medicine at [address] [place] [phone] Hector Spivey MD FREDDY Questions 07/29/2024 Results Follow-Up [facility]iology [address] [place] [address] [place] [phone] Yifan Hogan MD 07/29/2024 Telephone [facility] [address] [place] [address] [place] [phone] Yifan Hogan MD 07/28/2024 Orders Only [facility] Health Information Management [address] [place] [address] Scanning, Provider 07/28/2024 7:45 AM CDT Ancillary Procedure [facility] Cardiology [address] [place] [address] [address] [place] [address] History of atrial fibrillation; Other chest pain; Preop cardiovascular exam 07/26/2024 Results Follow-Up [facility] Family Medicine at [address] [place] [address] Hector Spivey MD 07/26/2024 7:56 AM CDT - 07/26/2024 11:59 PM CDT Hospital Encounter [facility] Medical Office Bldg 1 Breast [facility] [address] [facility] [address] [place] [address] Post-menopausal Discharge Disposition: Discharge to home or self care 07/20/2024 Orders Only [facility] [address] [facility] [address] [facility] [address] [place] [address] Kristin Navarrete NP 07/19/2024 9:00 AM CDT Office Visit [facility] [address] [place] [address] [place] [phone] Yifan Hogan MD History of atrial fibrillation (Primary Dx); Essential hypertension; Other chest pain; Preop cardiovascular exam 07/08/2024 9:00 AM CDT Office Visit [facility] Family Medicine at [address] [place] [phone] Lisette Bauman PA Primary osteoarthritis of right knee (Primary Dx); Age-related osteoporosis without current pathological fracture; Late onset Alzheimer's dementia without behavioral disturbance (HCC); Major depressive disorder with single episode, in full remission; Gastroesophageal reflux disease, unspecified whether esophagitis present; Essential hypertension; History of atrial fibrillation; Hypothyroidism, unspecified type; Post-menopausal 07/07/2024 Orders Only [facility] [address] [facility] 6th Floor [address] [place] [address] Kristin Navarrete NP 07/06/2024 2:45 PM CDT Office Visit [facility] [address] [facility] 6th Floor [address] [place] [phone] Kristin Navarrete NP Late onset Alzheimer's dementia without behavioral disturbance (HCC) (Primary Dx) 05/28/2024 9:15 AM 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 Ancillary Procedure [facility] Mobile MRI [address] [facility] [place] [id number] Right knee pain, unspecified chronicity from Last 3 Months Allergies Active Allergy [...] 30 patch 3 07/21/19 25 026 Active rivastigmine (EXELON) 4.6 mg/[address] 4.6 mg on the skin daily 30 patch 1 07/08/19 25 025 Discontinued(Re order) donepeziL (ARICEPT) 10 mg tablet Take 1 tablet (10 mg total) by mouth nightly 025 Discontinued Active Problems Problem Noted Date Diagnosed Date Gastroesophageal reflux disease 07/08/2024 Major depressive disorder wi th single episode, in full remission 07/08/2024 Osteoarthritis of right knee 09/04/2023 Preop cardiovascular exam 12/28/2022 Late onset Alzheimer's demen tia without behavioral disturbance 08/06/2022 Memory loss 08/02/2022 Thyroid nodule 05/16/2021 Tinnitus of both ears 04/18/2021 Chorda tympani disorder 04/18/2021 Essential hypertension 04/11/2021 Age-related osteoporosis wit hout current pathological fracture 02/15/2019 History of atrial fibrillation 02/15/2019 History of cervical cancer 02/15/2019 AVELINO (generalized anxiety disorder) 02/15/2019 Pulmonary nodule 02/15/2019 Resolved Problems Problem Noted Date Diagnosed Date Resolved Date Other chest pain 07/19/2024 08/02/2024 Thumb pain 03/25/2017 07/08/2024 Immunizations Immunization Administration [...] Sign Reading Time Taken Comments Blood Pressure 138/72 08/02/2024 9:29 AM CDT Pulse 57 08/02/2024 9:29 AM CDT Temperature 36.7 C (98.1 F) 08/02/2024 9:29 AM CDT Respiratory Rate 18 07/08/2024 9:00 AM CDT Oxygen Saturation 97% 08/02/2024 9:29 AM CDT Inhaled Oxygen Concentration - - Weight 63.1 kg (139 lb 3.2 oz) 08/02/2024 9:29 A M CDT Height 160 cm (5' 3 ) 08/02/2024 9:29 AM CDT Body Mass Index 24.66 08/02/2024 9:29 AM CDT Plan of Treatment Not on file Procedures Procedure Name Priority Date/Time Associated Diagnosis Comments TRANSTHORACIC ECHO (TTE) COMPLETE W DOPPLER/CF WO CONTRAST Routine 08/10/2024 8:35 AM CDT History of atrial fibrillation Essential hypertension Other chest pain SCAN - LABS 07/29/2024 NM MPI SPECT (REST AND/OR STRESS) MULTIPLE STUDIES Schedule Routine, Read Routine (OP Routine) 07/28/2024 9:31 AM CDT History of atrial fibrillation Other chest pain Preop cardiovascular exam CARDIOLOGY DOCUMENT SCAN 07/28/2024 SCAN - RADIOLOGY/IMAGING 07/28/2024 DEXA AXIAL SKELETON BONE DENSITY 1 OR MORE SITES Schedule Routine, Read Routine (OP Routine) 07/26/2024 8:48 AM CDT Post-menopausal ELECTROCARDIOGRAM REPORT Routine 07/19/2024 2:36 PM CDT Other chest pain Preop cardiovascular exam POCT LIPID PANEL Routine 07/19/2024 9:24 AM CDT Essential hypertension SCAN - LABS 07/01/2024 MRI KNEE RIGHT WO CONTRAST Schedule Routine, Read Routine (OP Routine) 05/28/2024 9:11 AM 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 Right knee pain, unspecified chronicity MAMMOGRAPHY Routine 06/26/2018 COLONOSCOPY Routine 06/05/2016 from Last 3 Months or Most Recently Relevant to Health Maintenance Results * TRANSTHORACIC ECHO (TTE) COMPLETE W DOPPLER/CF WO CONTRAST (08/10/2024 8:35 AM CDT) Anatomical Region Laterality Modality Ultrasound 08/10/2024 8:07 AM CDT Narrative 08/10/2024 9:13 AM CDT [facility] Medical Group Cardiology [address], [place] [address] [address] [facility] [address], [place] [address] P:[phone] P:[phone] Echocardiographic Report Patient Name: HOPE STANLEYМарина GANN : 1950 Study Date: 08/10/2024 8:07:40 AM Gender: F Tech: Location: [facility] Provider: YIFAN HOGAN Height(Cm): 160 BSA: 1.67 Weight(Kg): 63 Heart Rate: 64 BP: 138 / 72 Quality: Good Order Provider: YIFAN HOGAN PROCEDURES: Echocardiographic Report: Transthoracic echocardiogram with complete 2D, M-Mode, and color Doppler examination. With Strain Analysis. INDICATIONS: History of Atrial Fibrillation, HTN, Chest Pain. MEASUREMENTS: 2D/MM Value Range Doppler Value Range EF Mod BP 76 % [ 54 - 74 ] SHAR Vmax 2.36 cm2 [ 2.00 - 4.00 ] EF Teich MM 75 % [ 54 - 74 ] AV Mean PG 4 mmHg LVIDd 2D 4.33 cm [ 3.80 - 5.20 ] AV Peak Srini 1.45 m/s [ 1.00 - 1.70 ] LVIDd MM 4.76 cm [ 3.80 - 5.20 ] AV Peak PG 8 mmHg LVIDs 2D 2.78 cm [ 2.20 - 3.50 ] AV VTI 27.87 cm LVIDs MM 2.65 cm [ 2.20 - 3.50 ] LVOT Diam 2.05 cm [ 1.70 - 2.10 ] LVPWd 2D 0.94 cm [ 0.60 - 0.90 ] LVOT Peak Srini 1.04 m/s [ 0.70 - 1.10 ] LVPWd MM 1.15 cm [ 0.60 - 0.90 ] LVOT VTI 22.41 cm IVSd 2D 1.12 cm [ 0.60 - 0.90 ] MV E Peak Srini 1.03 m/s [ 0.60 - 1.30 ] IVSd MM 1.01 cm [ 0.60 - 0.90 ] MV A Peak Srini 0.90 m/s [ 1.00 - 1.20 ] LA Dimension MM 3.29 cm [ 2.70 - 3.80 ] MV Decel Time 213 msec [ 104 - 258 ] AoR Diam MM 2.80 cm [ 2.70 - 3.70 ] PV Peak Srini 0.93 m/s [ 0.40 - 0.80 ] LA Volume Index 21 cc/m2 [ 16 - 34 ] TR Peak Srini 3.14 m/s [ 1.00 - 2.80 ] ACS MM 1.85 cm TR Peak PG 39 mmHg RVSP 47.00 mmHg [ 10.00 - 36.00 ] Lateral E` 0.06 m/s [ 0.10 - 0.15 ] E` 0.06 m/s E/E` 19 2D/MM Value Range Doppler Value Range - FINDINGS: Interpretation Site: Exam was interpreted at [facility]. Left Ventricle: Ejection fraction is measured at 76 %. Global Longitudinal Strain is -16 %. The left ventricle is normal in size with hyperdynamic systolic function. The left ventricular ejection fraction is visually estimated to be greater than 70%. Right Ventricle: Normal right ventricular size. Normal right ventricular systolic function. Left Atrium: The left atrium is normal in size. Right Atrium: The right atrium is normal in size. Atrial Septum: Normal atrial septum. Mitral Valve: The mitral valve opens well. There is mild mitral regurgitation. Aortic Valve: The aortic valve is trileaflet and opens well. There is no aortic regurgitation. Tricuspid Valve: Estimated peak RVSP is 47 mmHg. The tricuspid valve is normal. There is moderate tricuspid regurgitation. Pulmonic Valve: The pulmonic valve is not well visualized. There is no color Doppler evidence of pulmonic valve regurgitation. Pericardium: Normal pericardium with no significant pericardial effusion. Aorta: The aortic root at the level of the sinus of Valsalva measures 2.7 cm in diameter. IVC: The IVC is not well visualized. CONCLUSIONS: Ejection fraction is measured at 76 %. Global Longitudinal Strain is -16 %. The left ventricle is normal in size with hyperdynamic systolic function. The left ventricular ejection fraction is visually estimated to be greater than 70%. The left atrium is normal in size. Electronically Signed By: Dr. Dandy Brown 08/10/2024 9:13:06 AM CDT Procedure Note Dandy Brown MD - 08/10/2024 [facility] Medical Group Cardiology [address], [place] [address] [address] [facility] [id number], [place] [address] P:[phone] P:[phone] Echocardiographic Report Patient Name: CHRISSY STANLEY B : 1950 Study Date: 08/10/2024 8:07:40 AM Gender: F Tech: Location: [facility] Provider: YIFAN HOGAN Height(Cm): 160 BSA: 1.67 Weight(Kg): 63 Heart Rate: 64 BP: 138 / 72 Quality: Good Order Provider: YIFAN HOGAN PROCEDURES: Echocardiographic Report: Transthoracic echocardiogram with complete 2D, M-Mode, and color Dopplerexamination. With Strain Analysis. INDICATIONS: History of Atrial Fibrillation, HTN, Chest Pain. MEASUREMENTS: 2D/MM Value Range Doppler ValueRange EF Mod BP 76 % [ 54 - 74 ] SHAR Vmax 2.36cm2 [ 2.00 - 4.00 ] EF Teich MM 75 % [ 54 - 74 ] AV Mean PG 4mmHg LVIDd 2D 4.33 cm [ 3.80 - 5.20 ] AV Peak Srini 1.45m/s [ 1.00 - 1.70 ] LVIDd MM 4.76 cm [ 3.80 - 5.20 ] AV Peak PG 8mmHg LVIDs 2D 2.78 cm [ 2.20 - 3.50 ] AV VTI 27.87cm LVIDs MM 2.65 cm [ 2.20 - 3.50 ] LVOT Diam 2.05 cm[ 1.70 - 2.10 ] LVPWd 2D 0.94 cm [ 0.60 - 0.90 ] LVOT Peak Srini 1.04m/s [ 0.70 - 1.10 ] LVPWd MM 1.15 cm [ 0.60 - 0.90 ] LVOT VTI 22.41cm IVSd 2D 1.12 cm [ 0.60 - 0.90 ] MV E Peak Srini 1.03m/s [ 0.60 - 1.30 ] IVSd MM 1.01 cm [ 0.60 - 0.90 ] MV A Peak Srini 0.90m/s [ 1.00 - 1.20 ] LA Dimension MM 3.29 cm [ 2.70 - 3.80 ] MV Decel Time 213msec [ 104 - 258 ] AoR Diam MM 2.80 cm [ 2.70 - 3.70 ] PV Peak Srini 0.93m/s [ 0.40 - 0.80 ] LA Volume Index 21 cc/m2 [ 16 - 34 ] TR Peak Srini 3.14m/s [ 1.00 - 2.80 ] ACS MM 1.85 cm TR Peak PG 39mmHg RVSP 47.00 mmHg [ 10.00 - 36.00 ] Lateral E` 0.06 m/s [ 0.10 - 0.15 ] E` 0.06 m/s E/E` 19 2D/MM Value Range Doppler ValueRange - FINDINGS: Interpretation Site: Exam was interpreted at [facility]. Left Ventricle: Ejection fraction is measured at 76 %. Global Longitudinal Strain is -16%. The left ventricle is normal in size with hyperdynamic systolic function. The leftventricular ejection fraction is visually estimated to be greater than 70%. Right Ventricle: Normal right ventricular size. Normal right ventricular systolicfunction. Left Atrium: The left atrium is normal in size. Right Atrium: The right atrium is normal in size. Atrial Septum: Normal atrial septum. Mitral Valve: The mitral valve opens well. There is mild mitral regurgitation. Aortic Valve: The aortic valve is trileaflet and opens well. There is no aorticregurgitation. Tricuspid Valve: Estimated peak RVSP is 47 mmHg. The tricuspid valve is normal. There ismoderate tricuspid regurgitation. Pulmonic Valve: The pulmonic valve is not well visualized. There is no color Dopplerevidence of pulmonic valve regurgitation. Pericardium: Normal pericardium with no significant pericardial effusion. Aorta: The aortic root at the level of the sinus of Valsalva measures 2.7 cm indiameter. IVC: The IVC is not well visualized. CONCLUSIONS: Ejection fraction is measured at 76 %. Global Longitudinal Strain is -16%. The left ventricle is normal in size with hyperdynamic systolic function. The leftventricular ejection fraction is visually estimated to be greater than 70%. The left atrium is normal in size. Electronically Signed By: Dr. Dandy Brown 08/10/2024 9:13:06 AM CDT us Yifan Hogan MD CV ECHO PROCEDURES F inal Result * SCAN - LABS (07/29/2024) us Hector Spivey MD Final Result * NM MPI SPECT (Rest and/or Stress) Multiple Studies (07/28/2024 9:31 AM CDT) Anatomical Region Laterality Modality Body N/A Nuclear Medicine 07/28/2024 7:20 AM CDT Narrative 07/28/2024 1:17 PM CDT [facility] Medical Group Cardiology [address] [facility] [address] [id number] [address] [facility] [address] [address] P:[phone] P:[phone] MPI Imaging Report Patient Name: CHRISSY STANLEY B : 1950 Study Date: 07/28/2024 7:20:28 AM Gender: F Tech: [facility] Location: [facility] Provider: YIFAN HOGAN Height(Cm): 160 BSA: Weight(Kg): 62.4 BMI: 24.37 Order Provider: YIFAN HOGAN PHYSICIAN: Referring Physician: Dr. Spivey. HCG Physician: Yifan Hogan M.D., F.A.C.C. Interpreting Physician: Solis Gaming M.D. Stress Supervision: Solis Mekhi, M.D. PROCEDURES: Pharmacologic SPECT Report: Myocardial perfusion [...] Procedure Note Abel Gaming MD - 07/28/2024 [facility] Medical Group Cardiology [address] [facility] [address], [place] [address] [address] [facility] [id number], [place] [address] P:[phone] P:[phone] MPI Imaging Report Patient Name: CHRISSY STANLEY B : 1950 Study Date: 07/28/2024 7:20:28 AM Gender: F [facility]: [facility] Provider: YIFAN HOGAN Height(Cm): 160 BSA: Weight(Kg): 62.4 BMI: 24.37 Order Provider: YIFAN HOGAN PHYSICIAN: Referring Physician: Dr. Spievy. HCG Physician: Yifan Hogan M.D., F.A.C.C. Interpreting [...] IMG NM PROCEDURES Fi nal Result * SCAN - RADIOLOGY/IMAGING (07/28/2024) Anatomical Region Laterality Modality Other us Provider Scanning Edited Result - Final * Cardiology Document Scan (07/28/2024) Anatomical Region Laterality Modality Other us Hector Spivey MD CV CARDIAC SERVICES PROCEDURE S Final Result * Dexa Axial Skeleton Bone Density 1 Or 2 Site (07/26/2024 8:48 AM CDT) Anatomical Region Laterality Modality Body N/A Mammography 07/26/2024 11:0 6 PM CDT Narrative 07/26/2024 11:07 PM CDT EXAM DESCRIPTION: DEXA AXIAL SKELETON BONE DENSITY 1 OR MORE SITES REASON FOR STUDY: 74 y/o year old F with given history of: 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 MF: MEI Report ID: [id number] Reading Location: [place] [address] Lisette Coley IMG DXA PROCEDURES Final Result * Electrocardiogram Report (07/19/2024 2:36 PM CDT) Yifan Hogan MD ECG ORDERABLES Lexi l Result * POCT lipid panel (07/19/2024 9:24 AM CDT) [facility] Cholesterol, POC 172 mg/dL Comment:GLU = 97 [...] Knee Right WO Contrast (05/28/2024 9:11 AM 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) Anatomical Region Laterality Modality Lower Extremities Right Magnetic Reson ance 05/28/2024 12:1 5 PM 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 Impressions 05/28/2024 3:38 PM 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 1. No meniscal tear. 2. Moderate [...] Miguel Lamar M.D. Narrative 05/28/2024 3:38 PM 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 EXAMINATION: 1. MRI KNEE RIGHT WO [...] IM MRI PROCEDURES Final Res ult * MAMMOGRAPHY (06/26/2018) Mammogram Normal Historical Provider HEALTH MAINTENANCE Final Result * (ABNORMAL) Colonoscopy (06/05/2016) Anatomical Region Laterality Modality Other us Historical Provider ENDOSCOPY PROCEDURES Lexi l Result from Last 3 Months or Most Recently Relevant to Health Maintenance Insurance MEDICARE [facility] MEDICARE [facility] [place] [place] [phone] [facility] Care Teams Service Tech Relationship Specialty Start Date End Date Hector Spivey MD PCP - General Family Medicine 04/11/21 Dr. Sally Storm [address], [place] [address] Family Medicine 04/06/24
--- OUTSIDE RECORDS SUMMARY | 2024-08-17 16:01 | XMS_ITS | Encounter Summary ---
Author Organization [facility] Healthcare Address [address] [place] [address] Care Team Providers Care Mechanical Manufacturing Engineer Name Role Phone Hector Spivey MD Primary Care Provider [phone] Encounter Details Date Type Department Care Team (Late st Contact Info) Description 07/26/2024 Results Follow-Up [facility] Medical Group Family Medicine at [address] [place] [address] Hector Spivey MD [address] [place] [address] [address] [place] [address] Social History Tobacco Use Types Packs/Day Years [...] on filedocumented in this encounter Care Teams Mechanical Manufacturing Engineer Relationship Specialty Start Date End Date Hector Spivey MD PCP - General Family Medicine 04/11/21 Dr. Sally Storm [address], [place] [address] Family Medicine 04/06/24 documented as of this encounter
--- OUTSIDE RECORDS SUMMARY | 2024-08-17 16:01 | XMS_ITS | Encounter Summary ---
Author Organization [facility] Healthcare Address [address] [place] [address] Care Team Providers Care Food Service Name Role Phone Hector Spivey MD Primary Care Provider [phone] Reason for Visit * Reason Onset Date Comments FREDDY Questions 07/30/2024 Encounter Details Date Type Department Care Team (Late st Contact Info) Description 07/30/2024 Telephone [facility] Medical Group Family Medicine at [address] [place] [address] Hector Spivey MD [address] [place] [address] [address] [place] [address] FREDDY Questions Social History Tobacco Use Types Packs/Day Years [...] encounter Miscellaneous Notes * Telephone Encounter - Cynthia Spring MA - 07/30/2024 9:53 AM CDT FREDDY Questions (Message from [facility]): Has patient been discharged at time of call? Yes Date Admitted: 07/28/24 Date Discharged: 07/29/24 Facility Admitted To: [facility] Reason for Stay? Chest Pain If prescribed new medications, do you have any questions or concerns? no Do you have enough medication to get you to your follow-up appointment? yes Since being released do you feel better, the same, or worse? better Date of FREDDY Appointment: 08/02/24 Do you have transportation to the appointment? yes Additional Comments: N/A Does message need to be routed? No documented in this encounter Plan of Treatment Not on file documented as of this encounter Visit Diagnoses Not on filedocumented in this encounter Care Teams Food Service Relationship Specialty Start Date End Date Hector Spivey MD PCP - General Family Medicine 04/11/21 Dr. Sally Storm [address], [place] [address] Family Medicine 04/06/24 documented as of this encounter
--- OUTSIDE RECORDS SUMMARY | 2024-08-17 16:01 | XMS_ITS | Clinical Summary ---
Author Organization [facility] Virtual Care Address [address] [place] [phone] Phone Care Team Providers Care Occupational Health Specialist Name Role Phone Hector Spivey MD [...] pain 07/19/2024 08/02/2024 Thumb pain 03/25/2017 07/08/2024 Encounters Date Type Department Care Team Description 08/10/2024 8:15 AM CDT Ancillary Procedure [facility] Cardiology [address] [place] [address] [place] [address] History of atrial fibrillation; Essential hypertension; Other chest pain 08/02/2024 9:30 AM CDT Office Visit [facility] Family Medicine at [address] [place] [address] Hector Spivey MD Atypical chest pain (Primary Dx); History of atrial fibrillation; Gastroesophageal reflux disease without esophagitis; Essential hypertension; Age-related osteoporosis without current pathological fracture 07/30/2024 Telephone [facility] Family Medicine at [address] [place] [address] Hector Spivey MD FREDDY Questions 07/29/2024 Results Follow-Up [facility] Cardiology [address] [place] [address] [place] [address] Yifan Hogan MD 07/29/2024 Telephone [facility] Cardiology [address] [place] [address] [place] [address] Yifan Hogan MD 07/28/2024 7:45 AM CDT Ancillary Procedure [facility] Cardiology [address] [place] [address] [place] [phone] History of atrial fibrillation; Other chest pain; Preop cardiovascular exam 07/28/2024 Orders Only [facility] Health Information Management [address] [place] [address] Scanning, Provider 07/26/2024 7:56 AM CDT - 07/26/2024 11:59 PM CDT Hospital Encounter [facility] Bld[facility] 1 [facility] [address] [facility] [address] [place] [address] Post-menopausal Discharge Disposition: Discharge to home or self care 07/26/2024 Results Follow-Up [facility] Family Medicine at [address] [place] [address] Hector Spivey MD 07/20/2024 Orders Only [address] [place] [address] Kristin Navarrete NP 07/19/2024 9:00 AM CDT Office Visit [facility] Medical [facility] Cardiology [address] [facility] [address] [place] [address] HoganYifan MD History of atrial fibrillation (Primary Dx); Essential hypertension; Other chest pain; Preop cardiovascular exam 07/08/2024 9:00 AM CDT Office Visit [facility] Family Medicine at [address] [place] [address] Lisette Bauman PA Primary osteoarthritis of right knee (Primary Dx); Age-related osteoporosis without current pathological fracture; Late onset Alzheimer's dementia without behavioral disturbance (HCC); Major depressive disorder with single episode, in full remission; Gastroesophageal reflux disease, unspecified whether esophagitis present; Essential hypertension; History of atrial fibrillation; Hypothyroidism, unspecified type; Post-menopausal 07/07/2024 Orders Only [address] [place] [address] Kristin Navarrete NP 07/06/2024 2:45 PM CDT Office Visit [address] [place] [address] Kristin Navarrete NP Late onset Alzheimer's dementia without behavioral disturbance (HCC) (Primary Dx) 05/28/2024 9:15 AM EHS MANAGER Ancillary Procedure [facility] [address] [place] [address] Right knee pain, unspecified chronicity from Last 3 Months Immunizations Immunization Administration Dates Next Due Influenza, Quadrivalent, Hig h Dose, Preservative Free, Intrr 02/03/2023 Influenza, Trivalent, High D ose, Split, Preservative Free, Intramuscular 03/27/2017,01/05/2016 Influenza, Unspecified 01/27/2024,2021,01/26/2021,01/06 Pneumococcal Conjugate PCV 13 11/13/2016 Pneumococcal Polysaccharide PPV23 11/22/2015,04/2010 Tdap 05/06/2016 ZOSTER Recombinant 04/14/2019,03/20/2019, 019 Surgical History Surgery Date Site/Laterality Comments CT TONSILLECTOMY & ADENOIDEC MALOU <AGE 12 Tonsillectomy With Adenoidectomy - (Added by TW Conv) CT CONIZATION CERVIX W/WO D& C RPR KNIFE/LASER Cervical Conization - (Added by TW Conv) CT LAPS TX ECTOPIC PREG W/O SALPING&/OOPHORECTOMY Laparoscopy With Excision Of Ectopic - (Added by TW Conv) CT NEUROPLASTY &/TRANSPOS ME SOLANGE NRV CARPAL TUNNE [...] 08/02/2024 9:29 AM CDT Plan of Treatment Health Maintenance Due Date Last Done Comments Hepatitis C Screening 1950 Hepatitis B Screening 1968 Well Visit 65+ 05/16/2023 05/16/2022 Depression Screening 08/02/2025 08/02/2024, 07/08/2024, 05/16/2022, Additional history exists Fall Risk Assessment 08/02/2025 08/02/2024, 07/08/2024, 05/16/2022, Additional history exists DTaP/Tdap/Td Vaccine (2 - [...] Read Routine (OP Routine) 05/28/2024 9:11 AM EHS MANAGER Right knee pain, unspecified chronicity HM MAMMOGRAPHY Routine 06/26/2018 COLONOSCOPY Routine 06/05/2016 from Last 3 Months or Most Recently Relevant to Health Maintenance Results * TRANSTHORACIC ECHO (TTE) COMPLETE W DOPPLER/CF WO CONTRAST (08/10/2024 8:35 AM CDT) Anatomical Region Laterality Modality Ultrasound 08/10/2024 8:07 AM CDT Narrative 08/10/2024 9:13 AM CDT [facility] Medical [facility] Cardiology [address] [facility] [address] [address] [address] [facility] [address], [place] [address] P:[phone] P:[phone] Echocardiographic Report Patient Name: CHRISSY STANLEYМарина : 1950 Study Date: 08/10/2024 8:07:40 AM Gender: F Tech: Location: [facility] Provider: YIFAN HOGAN Height(Cm): 160 BSA: [...] Interpretation Site: Exam was interpreted at [facility]. Left Ventricle: Ejection fraction is measured at [...] Procedure Note Dandy Brown MD - 08/10/2024 [facility] Medical [facility] Cardiology [address] [facility] [address] [address] [address] [facility] [address] [id number], [place] [address] P:[phone] P:[phone] Echocardiographic Report Patient Name: CHRISSY STANLEY B : 1950 Study Date: 08/10/2024 8:07:40 AM Gender: F Tech: Location: [facility] Provider: YIFAN HOGAN Height(Cm): 160 BSA: [...] Interpretation Site: Exam was interpreted at [facility]. Left Ventricle: Ejection fraction is measured at [...] AM CDT Narrative 07/28/2024 1:17 PM CDT [facility] Medical [facility] Cardiology [address], [place] [address] [address], [place] [address] P:[phone] P:[phone] [facility] Imaging Report Patient Name: CHRISSY STANLEY B : 1950 Study Date: 07/28/2024 7:20:28 AM Gender: F Tech: JUAN REEVES Location: [facility] Provider: YIFAN HOGAN Height(Cm): 160 [...] Procedure Note Abel Gaming MD - 07/28/2024 [facility] Medical [facility] Cardiology [address] [facility] [address] [address] [address] [facility] [address] [place], [place] [address] P:[phone] P:[phone] [facility] Imaging Report Patient Name: HOPE STANLEYМарина GANN : 1950 Study Date: 07/28/2024 7:20:28 AM Gender: F Tech: RANDY REEVESMT Location: [facility] Provider: YIFAN HOGAN Height(Cm): 160 [...] F with given history of: post menopausal Impregnator/Model: [employer] A (S/N [id number]) Facility LSC value of 0.022 for the [...] Lucian Cid M.D. MF: MEI Report ID: [id number] Reading Location: [address] Note Lucian Cid MD - 07/26/2024 EXAM DESCRIPTION: DEXA AXIAL SKELETON BONE DENSITY 1 OR MORE SITES REASON FOR STUDY: 74 y/o year old F with given history of: post menopausal Impregnator/Model: [employer] A (S/N [id number]) Facility LSC value of 0.022 for the [...] Lucian Cid M.D. MF: MEI Report ID: [id number] Reading Location: [place] [address] Lisette Coley IMG DXA PROCEDURES Final Result * Electrocardiogram Report (07/19/2024 2:36 PM CDT) us Yifan Hogan MD ECG ORDERABLES Lexi l [...] Knee Right WO Contrast (05/28/2024 9:11 AM EHS MANAGER) Anatomical Region Laterality Modality Lower Extremities Right Magnetic Reson ance 05/28/2024 12:1 5 PM EHS MANAGER Impressions 05/28/2024 3:38 PM EHS MANAGER 1. No meniscal tear. 2. Moderate [...] Miguel Lamar M.D. Narrative 05/28/2024 3:38 PM EHS MANAGER EXAMINATION: 1. MRI KNEE RIGHT WO [...] IMG MRI PROCEDURES Final Res ult * MAMMOGRAPHY (06/26/2018) Mammogram Normal Historical Provider HEALTH MAINTENANCE Final Result * (ABNORMAL) Colonoscopy (06/05/2016) Anatomical Region Laterality Modality Other Historical Provider ENDOSCOPY PROCEDURES Lexi l Result from Last 3 Months or Most Recently Relevant to Health Maintenance Insurance MEDICARE [facility] MEDICARE [facility] MEDICARE AARP Care Teams Occupational Health Specialist Relationship Specialty Start Date End Date Hector Spivey MD PCP - General Family Medicine 04/11/21 Dr. Sally Storm [address] [address] [facility] [address], [place] [address] Family Medicine 04/06/24
[2024-08-17 16:42] LABS: MRSA (PCR) NOT DETECTED (NOT DETECTE)
== END 2024-08-17 13:51 | disposition home or self-care (01) ==
LOC: ANHSURGERY 13:58
PROVIDERS: PCP Family Medicine; Visit Provider Orthopaedic Surgery
DX: Z01.818 Encounter for other preprocedural examination (principal); M17.11 Unilateral primary osteoarthritis, right knee
CPT/HCPCS: 80307; 81001; 83036; 87641

== ENCOUNTER 2024-08-31 01:00 | Day surgery (SDC) | payer MEDICARE, OTHER, SELFPAY ==
[2024-08-17 14:31] VITALS: BP 129/52; PULSE 65; RESP 16; TEMP 36.5; O2SAT 97; BMI 23.8
--- NOTE | 2024-08-17 14:55 | PC.NURSE ---
Report to the Outpatient Waiting Room, entrance under the green pavilion located off [facility], at time __1000am on date _08/31/24 . Planned Procedure Time: __1200pm .? Time changes happen often and if your time is changed the preop area will call you the afternoon before. - You and your visitor will be asked to self-screen and do not enter if you have any COVID symptoms. Please call surgeon if you need to reschedule. - A mask is optional within the hospital at this time. Patients may have clear liquids (water, carbonated beverages, clear teas, apple juice) until 3 hours prior to surgery with a maximum of 20 ounces. - No food from midnight until time of surgery and no smoking, or chewing tobacco (or any form of nicotine). No chewing gum, candy or mints. (0900am)Lev Take only the following medications with a SIP of water on the morning of surgery: __Levothyroxine and Sertraline DO NOT STOP ANY OF YOUR OTHER PRESCRIPTION MEDICATIONS PRIOR TO SURGERY EXCEPT THE FOLLOWING Hold all vitamins and supplements for 3 days per anesthesiologist. Date to take last dose is 08/27/24 Medications to discontinue per physician ___Eliquis for [address] Hogan- Date to take last dose 08/30/24 Please no make-up, nail sinhala, hairspray, perfume, deodorant, or body powder the day of surgery.? No jewelry (including any body piercings) or valuables the day of surgery, leave them at home.? Please take a shower or bath the night before, & the morning of, surgery with an antibacterial soap.? Wear comfortable, loose fitting clothing.? HIBICLEANSE SCRUB as needed. - Jewelry must be removed prior to entering the operating room.? Rings and piercings that are not removed may be cut off. - The hospital will not accept responsibility for valuables.? - Please leave all valuables, including medications, at home the day of surgery. If you are going home after surgery, a licensed cement truck driver must drive you home.? - NO public transportation without another adult if you receive anesthesia. - We recommend that an adult stay with you for 24 hours following discharge. - We also recommend that you do not drive, make important decision, drink alcoholic beverages, or take any drugs that were not prescribed by your health care provider for at least 24 hours after your discharge time. Follow any additional instructions given to you from your surgeon. Telephone instructions given to _Patient & and asked if any additional questions and then verbalized understanding. Patient advised to call surgeon office or pre surgery nurse liaison [phone] if any additional questions.
[2024-08-31] VITALS (14 sets, daily range): BP systolic 101–164; BP diastolic 46–94; PULSE 63–85; RESP 12–20; TEMP 36–37.2; O2SAT 90–100
--- NOTE | ~2024-08-31 | XR_ITS ---
EXAMINATION: [id number] DATE: 08/31/2024 14:21 INDICATION: Postoperative evaluation following right total knee arthroplasty. TECHNIQUE: Anteroposterior and lateral views of the right knee were obtained. COMPARISON: None. FINDINGS: Right total knee arthroplasty with patellar resurfacing appears well seated and in near anatomic alig nment. No fractures identified. Skin yfn and expected postoperative subcutaneous, intramedullary and intra-articular gas. IMPRESSION: 1. Right total knee arthroplasty, negative for postoperative purposes. Reviewed, dictated and finalized at location A.
--- OUTSIDE RECORDS SUMMARY | 2024-08-31 01:03 | XMS_ITS | Data Portability ---
Author Organization [facility] Dorene TEIXEIR[employer] Address [address] [place] [address] Care Team Providers Care Environmental Maintenance Worker Name Role Phone MITCHELL RONQUILLO Primary Care Provider Assessment Encounter Date Assessment Date Assessment LastModified by Organization Details LastModified Time 09/04/2023 09/04/2023 Chrissy presents f or evaluation of her right knee. States her right knee pains been ongoing for approximately 2 months. She presents with her who is at the bedside. Her and her spend their winter months in [facility]. She endorses pain in the anterior aspect [...] review the patient's x-rays from [facility] dated 08/29/2023 with her and her at [...] knee. All of her questions were answered. [facility] Not available 09/04/2023 09:25:20 Plan of Treatment Reminders Order Date Submit Date Provider Last Modified By Organization Details Last Modified Time Details Appointments None recorded. Lab None recorded. Referral None recorded. Procedures None recorded. Surgeries None recorded. Imaging None recorded. Medication Orders lidocaine HCl 10 mg/mL (1 %) injection solution 2023 [id number], [address] [place], [address], 4 09:10:34 bupivacai ne (PF) 0.5 % (5 mg/mL) injection solution 2023 [id number], [address] [place], [address], 4 09:10:34 Depo-Medr ol 40 mg/mL suspensio n for injection 2023 024 [facility][id number], [address] [place], [address], 09:10:34 Patient TargetsNo targets recorded. Patient InstructionsNo instructions recorded. Reason for Referral None Reported. Problems Name Problem SNOMED Code Status Onset Date Resolution Date Notes Provider Name and Address Organization Details Recorded Time Osteoarthri tis of right knee joint [id number] 00 Active 2023 MARYLIN Goyal [address] [place], [address], [facility] 09:21:14 Problem Notes None recorded. Procedures Surgical History Date Name Laterality Status Provider Name and Address Organization Details Recorded Time Cortisone Inj w/ - Large Joint completed MARYLIN Goyal [address] [place], [address], [facility] 09/04/2023 09:38:01 Imaging Results None recorded. [...] Tobacco Smoking Status Former Smoker Etta villalba [place] [facility] 09/03/2023 17:06:26 What Is Your Level [...] Surgery N Metal Allergy N Pacemaker N Sleep Apnea N Latex Allergy Y Rheumatoid Arthritis N Pulmonary Embolism N Taking Blood Thinners N Gynecological HistoryNo gynecological history recorded. Obstetrics History GPAL:G 0 P 0 0 0 0 Past Encounters Encounter ID Performer Location Encounter Start Date Encounter Closed Date Diagnosis/Indication Diagnosis SNOMED-CT Code Diagnosis ICD10 Code Diagnosis Note [id number] [facility] [address] [place] [address] 09/04/2023 08:13:30 09/04/2023 09:00:42 Pain of right knee joint [id number] 59549 M25.561 Osteoarthr itis of right knee joint [id number] 01639 M17.11 Risks to the injection include pain, [...] Huizar Member ID Guarantor Name 09/04/2023 1 [place] Chrissy Stanley [id number] Chrissy Stanley 09/04/2023 2 [facility] (MEDICARE SUPPLEMENT) Chrissy Stanley [id number] Chrissy Stanley Notes Date Note Type Note [...] radicular symptoms. John Mahoney, PAC [address] [place], [address], [place] [facility] 09/04/2023 09:43:30 OBGyn Episode No OBEpisode recorded.
--- OUTSIDE RECORDS SUMMARY | 2024-08-31 01:03 | XMS_ITS | Encounter Summary ---
Author Organization [facility] Healthcare Address [address] [place] [address] Care Team Providers Care Body Designer Name Role Phone Hector Spivey MD Primary Care Provider [phone] Reason for Visit * Reason Onset Date Comments FREDDY Questions 07/30/2024 Encounter Details Date Type Department Care Team (Late st Contact Info) Description 07/30/2024 Telephone [facility] Medical Group Family Medicine at [address] [place] [address] Hector Spivey MD [address] [place] [address] [address] [place] [address] FREDDY Questions Social History Tobacco [...] 9:53 AM CDT FREDDY Questions (Message from [facility] Access Center-S[facility] Salesperson): Has patient been discharged at time of call? Yes Date Admitted: 07/28/24 Date Discharged: 07/29/24 Facility Admitted To: [facility] Reason for Stay? Chest Pain If prescribed [...] on filedocumented in this encounter Care Teams Body Designer Relationship Specialty Start Date End Date Hector Spivey MD PCP - General Family Medicine 04/11/21 Dr. Sally Storm [address] [address], [place] [address] Family Medicine 04/06/24 documented as of this encounter
--- OUTSIDE RECORDS SUMMARY | 2024-08-31 01:03 | XMS_ITS | Referral Summary ---
Author Organization [facility] Virtual Care Address [address] [place] [address] Phone Care Team Providers Care Inner Diameter Grinder Tool Name Role Phone Hector Spivey MD Primary Care Provider [phone] Encounters Date Type Department Care Team Description 08/10/2024 8:15 AM CDT Ancillary Procedure [facility] Cardiology [address] [place] [address] [place] [address] History of atrial fibrillation; Essential hypertension; Other chest pain 08/02/2024 9:30 AM CDT Office Visit [facility] Medical [facility] Family Medicine at [address] [place] [address] Hector Spivey MD Atypical chest pain (Primary Dx); History of atrial fibrillation; Gastroesophageal reflux disease without esophagitis; Essential hypertension; Age-related osteoporosis without current pathological fracture 07/30/2024 Telephone [facility] Family Medicine at [address] [place] [phone] Hector Spivey MD FREDDY Questions 07/29/2024 Results Follow-Up [facility] Cardiology [address] [place] [address] [place] [address] Yifan Hogan MD 07/29/2024 Telephone [facility] Cardiology [address] [place] [address] [place] [address] Yifan Hogan MD 07/28/2024 Orders Only [facility] Health Information Management [address] [place] [address] Scanning, Provider 07/28/2024 7:45 AM CDT Ancillary Procedure [facility] Cardiology [address] [place] [address] [address] [place] [address] History of atrial fibrillation; Other chest pain; Preop cardiovascular exam 07/26/2024 Results Follow-Up [facility] Family Medicine at [address] [place] [address] Hector Spivey MD 07/26/2024 7:56 AM CDT - 07/26/2024 11:59 PM CDT Hospital Encounter [facility] Medical Office Bldg 1 Breast [facility] [address] [facility] [address] [place] [address] Post-menopausal Discharge Disposition: Discharge to home or self care 07/20/2024 Orders Only [facility] [address] [facility] 6th [facility] [address] [place] [address] Kristin Navarrete NP 07/19/2024 9:00 AM CDT Office Visit [facility] Cardiology [address] [place] [address] [address] [place] [address] Yifan Hogan MD History of atrial fibrillation (Primary Dx); Essential hypertension; Other chest pain; Preop cardiovascular exam 07/08/2024 9:00 AM CDT Office Visit [facility] Family Medicine at [address] [place] [address] Lisette Bauman PA Primary osteoarthritis of right knee (Primary Dx); Age-related osteoporosis without current pathological fracture; Late onset Alzheimer's dementia without behavioral disturbance (HCC); Major depressive disorder with single episode, in full remission; Gastroesophageal reflux disease, unspecified whether esophagitis present; Essential hypertension; History of atrial fibrillation; Hypothyroidism, unspecified type; Post-menopausal 07/07/2024 Orders Only [facility] [address] [facility] 6th [address] [place] [address] Kristin Navarrete NP 07/06/2024 2:45 PM CDT Office Visit [facility] [address] [facility] 6th [address] [place] [address] Kristin Navarrete NP Late onset Alzheimer's dementia [...] Medium 02/15/2019 Medications EPINEPHrine 0.3 mg/0.3 mL auto-injection syringeIndicati ons:Anaphylaxis Inject 0.3 mL (0.3 mg total) into the muscle as instructed as needed for anaphylaxis Active cyanocobalamin (Vitamin B-12) 500 mcg tablet Activ e multivit-min/fe rrous fumarate (MULTI VITAMIN ORAL) Active cholecalciferol , vitamin D3, (VITAMIN D3 ORAL) Active folic acid 20 mg capsule Active losartan (COZAAR) 25 mg tablet Take 1 tablet (25 mg total) by mouth daily Active loratadine 10 mg capsule Take by mouth Activ e denosumab (PROLIA) 60 mg/mL syringe q 6 mo 1 mL 5 1 Active atorvastatin (LIPITOR) 40 mg tablet Take [...] mg total) by mouth daily Active calcium carbonate-vitam in D3 1,500 mg (600 mg elemental)-200 unit capsule Take 1 tablet by mouth daily Active vitamin E 1,000 unit capsule Take 1 capsule (1,000 Units total) by mouth daily Active magnesium gluconate 200 mg tabletIndicatio ns:hypomagnesem ia Take 1 tablet (200 mg total) by mouth daily Active omega-3 fatty acids-fish oil 300-1,000 mg capsule Take 1 capsule (1 g total) by mouth daily Active rivastigmine (EXELON) 4.6 mg/[address] 4.6 mg on the skin daily for 24 hours 30 patch 3 5 07/21/19 26 Active Active Problems Problem Noted Date Diagnosed [...] CDT Essential hypertension SCAN - LABS 07/01/2024 HM MAMMOGRAPHY Routine 06/26/2018 COLONOSCOPY Routine 06/05/2016 from Last 3 Months or Most Recently Relevant to Health Maintenance Results * TRANSTHORACIC ECHO (TTE) COMPLETE W DOPPLER/CF WO CONTRAST (08/10/2024 8:35 AM CDT) Anatomical Region Laterality Modality Ultrasound 08/10/2024 8:07 AM CDT Narrative 08/10/2024 9:13 AM CDT [facility] Medical Group Cardiology [address] [facility] [address] [address] [address] [facility] [address], [place] [address] P:[phone] P:[phone] Echocardiographic Report Patient Name: CHRISSY STANLEY B : 1950 Study Date: 08/10/2024 8:07:40 AM Gender: F Tech: Location: [facility] Provider: YIFAN HOGAN Height(Cm): 160 BSA: 1.67 [...] FINDINGS: Interpretation Site: Exam was interpreted at [facility]. Left Ventricle: Ejection fraction is measured at [...] Procedure Note Dandy Brown MD - 08/10/2024 [facility] Medical Group Cardiology [address] [facility] [address] [address] [address] [facility] [address], [place] [address] P:[phone] P:[phone] Echocardiographic Report Patient Name: CHRISSY STANLEYМарина : 1950 Study Date: 08/10/2024 8:07:40 AM Gender: F Tech: Location: [place] Ref Provider: YIFAN HOGAN Height(Cm): 160 BSA: 1.67 [...] FINDINGS: Interpretation Site: Exam was interpreted at [facility]. Left Ventricle: Ejection fraction is measured at [...] Dr. Dandy Brown 08/10/2024 9:13:06 AM CDT Yifan Hogan MD CV ECHO PROCEDURES F inal Result * SCAN - LABS (07/29/2024) us Hector Spivey MD Final Result * NM MPI SPECT (Rest and/or Stress) Multiple Studies (07/28/2024 9:31 AM CDT) Anatomical Region Laterality Modality Body N/A Nuclear Medicine 07/28/2024 7:20 AM CDT Narrative 07/28/2024 1:17 PM CDT [facility] Medical Group Cardiology [address] [facility] [address], [place] [address] [address] [facility] [address], [place] [address] P:[phone] P:[phone] MPI Imaging Report Patient Name: CHRISSY STANLEY B : 1950 Study Date: 07/28/2024 7:20:28 AM Gender: F Tech: [facility] Location: [facility] Provider: YIFAN HOGAN Height(Cm): 160 BSA: [...] 07/28/2024 12:07:39 PM CDT Electronically Signed By: bAel Gaming MD 07/28/2024 12:07:39 PM CDT Procedure Note Abel Gaming MD - 07/28/2024 [facility] Medical Group Cardiology [address] [facility] [address] [address] [address] [facility] [address], [place] [address] P:[phone] P:[phone] MPI Imaging Report Patient Name: HOPE STANLEYМарина GANN : 1950 Study Date: 07/28/2024 7:20:28 AM Gender: F Tech: [facility] Location: [facility] Provider: YIFAN HOGAN Height(Cm): 160 BSA: [...] Abel Gaming MD 07/28/2024 12:07:39 PM CDT Yifan Hogan MD IMG NM PROCEDURES Fi [...] F with given history of: post menopausal Engineer Technical Staff/Model: [employer] A (S/N [id number]) Facility LSC value of 0.022 for the [...] Electronically signed by Lucian Cid M.D. MF: MIE Report ID: [id number] Reading Location: [place] [address] Procedure Note Lucian Cid MD - 07/26/2024 EXAM DESCRIPTION: DEXA AXIAL SKELETON BONE DENSITY 1 OR MORE SITES REASON FOR STUDY: 74 y/o year old F with given history of: post menopausal Engineer Technical Staff/Model: [employer] A (S/N [id number]) Facility LSC value of 0.022 for the [...] Lucian Cid M.D. MF: MEI Report ID: [id number] Reading Location: [id number] Lisette Coley IMG DXA PROCEDURES Final Result * Electrocardiogram Report (07/19/2024 2:36 PM CDT) Yifan Hogan MD ECG ORDERABLES Lexi l Result * POCT lipid panel (07/19/2024 9:24 AM CDT) [facility] Cholesterol, POC 172 mg/dL Comment:GLU = [...] (07/01/2024) Hector Spivey MD Final Result * MAMMOGRAPHY (06/26/2018) Pathologist [facility] Mammogram Normal Janet Santiago MD HEALTH MAINTENANCE Final Result * (ABNORMAL) Colonoscopy (06/05/2016) Anatomical Region Laterality Modality Other Janet Santiago MD ENDOSCOPY PROCEDURES Lexi l Result from Last 3 Months or Most Recently Relevant to Health Maintenance Insurance MEDICARE Member Subscriber Plan / Payer (Ef fective 2014-Present) Name:Chrissy Stanley Member ID:[id number] Relation to Subscriber:Self Name:Chrissy Stanley Subscriber ID:[id number] Payer ID:[id number] Group ID:Not on file Type:MEDICARE TRADITIONAL Address: [address] [address] [facility] MEDICARE Member Subscriber Plan / Payer (Ef fective 2014-Present) Name:Chrissy Stanley Member ID:[id number] Relation to Subscriber:Self Name:Chrissy Stanley Subscriber ID:[id number] Payer ID:[id number] Group ID:Not on file Type:MEDICARE TRADITIONAL Address: [address] [address] [facility] MEDICARE [facility] Care Teams Inner Diameter Grinder Tool Relationship Specialty Start Date End Date Hector Spivey MD PCP - General Family Medicine 04/11/21 Dr. Sally Storm [address] [facility] [address], [place] [address] Family Medicine 04/06/24
--- OUTSIDE RECORDS SUMMARY | 2024-08-31 01:03 | XMS_ITS | Encounter Summary ---
Author Organization [facility] Healthcare Address [address] [place] [address] Care Team Providers Care Field Scout Name Role Phone Hector Spivey MD Primary Care Provider [phone] Encounter Details Date Type Department Care Team (Late st Contact Info) Description 07/26/2024 Results Follow-Up [facility] Medical Group Family Medicine at [address] [place] [address] Hector Spivey MD [address] [place] [address] [address] [place] [address] Social History Tobacco Use Types [...] on filedocumented in this encounter Care Teams Field Scout Relationship Specialty Start Date End Date Hector Spivey MD PCP - General Family Medicine 04/11/21 Dr. Sally Storm [address] [facility] [address], [place] [address] Family Medicine 04/06/24 documented as of this encounter
--- OUTSIDE RECORDS SUMMARY | 2024-08-31 01:03 | XMS_ITS | Clinical Summary ---
Author Organization [facility] Virtual Care Address [address] [place] [phone] Phone Care Team Providers Care Secondary English Teacher Name Role Phone Hector Spivey MD Primary Care Provider [phone] Allergies Active Allergy Reactions Criticality Noted Date [...] Description 08/10/2024 8:15 AM CDT Ancillary Procedure [facility] Medical Group Cardiology [address] [place] [address] History of atrial fibrillation; Essential hypertension; Other chest pain 08/02/2024 9:30 AM CDT Office Visit [facility] Medical Group Family Medicine at [address] [place] [address] Hector Spivey MD Atypical chest pain (Primary Dx); History of atrial fibrillation; Gastroesophageal reflux disease without esophagitis; Essential hypertension; Age-related osteoporosis without current pathological fracture 07/30/2024 Telephone [facility] Family Medicine at [address] [place] [address] Hector Spivey MD FREDDY Questions 07/29/2024 Results Follow-Up [facility] Cardiology [address] [place] [address] [address] [place] [address] Yifan Hogan MD 07/29/2024 Telephone [facility] Cardiology [address] [place] [address] [address] [place] [address] Yifan Hogan MD 07/28/2024 7:45 AM CDT Ancillary Procedure [facility] Cardiology [address] [place] [address] [address] [place] [address] History of atrial fibrillation; Other chest pain; Preop cardiovascular exam 07/28/2024 Orders Only [facility] Health Information Management [address] [place] [address] Scanning, Provider 07/26/2024 7:56 AM CDT - 07/26/2024 11:59 PM CDT Hospital Encounter [facility] Medical Office Bldg 1 Breast [facility] [address] [facility] [address] [place] [address] Post-menopausal Discharge Disposition: Discharge to home or self care 07/26/2024 Results Follow-Up [facility] Family Medicine at [address] [place] [address] Hector Spivey MD 07/20/2024 Orders Only [address] 6th [address] [place] [phone] Kristin Navarrete NP 07/19/2024 9:00 AM CDT Office Visit [facility] Medical Group Cardiology [address] [place] [address] Yifan Hogan MD History of atrial fibrillation (Primary Dx); Essential hypertension; Other chest pain; Preop cardiovascular exam 07/08/2024 9:00 AM CDT Office Visit [facility] Medical Group Family Medicine at [address] [place] [address] Lisette Bauman PA Primary osteoarthritis of right knee (Primary Dx); Age-related osteoporosis without current pathological fracture; Late onset Alzheimer's dementia without behavioral disturbance (HCC); Major depressive disorder with single episode, in full remission; Gastroesophageal reflux disease, unspecified whether esophagitis present; Essential hypertension; History of atrial fibrillation; Hypothyroidism, unspecified type; Post-menopausal 07/07/2024 Orders Only [facility] [address] [facility] 6th Floor [address] [place] [address] Kristin Navarrete NP 07/06/2024 2:45 PM CDT Office Visit [facility] [address] [facility] 6th Floor [address] [place] [address] Kristin Navarrete NP Late onset Alzheimer's dementia [...] 019 Surgical History Surgery Date Site/Laterality Comments VT TONSILLECTOMY & ADENOIDEC MALOU <AGE 11 Tonsillectomy With Adenoidectomy - (Added by TW Conv) VT CONIZATION CERVIX W/WO D& C RPR KNIFE/LASER Cervical Conization - (Added by TW Conv) VT LAPS TX ECTOPIC PREG W/O SALPING&/OOPHORECTOMY Laparoscopy With Excision Of Ectopic - (Added by TW Conv) VT NEUROPLASTY &/TRANSPOS ME SOLANGE NRV CARPAL TUNNE [...] AM CDT Narrative 08/10/2024 9:13 AM CDT [facility] Medical Group Cardiology [address], [place] [address] [address] [facility] [address], [place] [address] P:[phone] P:[phone] Echocardiographic Report Patient Name: CHRISSY STANLEY B : 1950 Study Date: 08/10/2024 8:07:40 AM Gender: F Tech: Location: [facility] Provider: YIFAN HOGAN Height(Cm): 160 BSA: 1.67 [...] FINDINGS: Interpretation Site: Exam was interpreted at [facility]. Left Ventricle: Ejection fraction is [...] Procedure Note Dandy Brown MD - 08/10/2024 [facility] Medical Group Cardiology [address] [facility] [address] [address] [address] [facility] [address], [place] [address] P:[phone] P:[phone] Echocardiographic Report Patient Name: CHRISSY STANLEY B : 1950 Study Date: 08/10/2024 8:07:40 AM Gender: F Tech: Location: [facility] Provider: YIFAN HOGAN Height(Cm): 160 BSA: 1.67 [...] FINDINGS: Interpretation Site: Exam was interpreted at [facility]. Left Ventricle: Ejection fraction is [...] AM CDT Narrative 07/28/2024 1:17 PM CDT [facility] Medical Group Cardiology [address] [facility] [address], [place] [address] [address] [facility] [address], [place] [address] P:[phone] P:[phone] MPI Imaging Report Patient Name: CHRISSY STANLEYМарина : 1950 Study Date: 07/28/2024 7:20:28 AM Gender: F Tech: JUAN REEVES Location: [facility] Provider: YIFAN HOGAN Height(Cm): 160 BSA: Weight(Kg): 62.4 BMI: 24.37 Order Provider: TAMMYKATALINAJOANNE PHYSICIAN: Referring Physician: Dr. Spivey. HCG Physician: [...] Procedure Note Abel Gaming MD - 07/28/2024 [facility] Medical Group Cardiology [address] [facility] [address] [address] [address] [facility] [address], [place], [place] [address] P:[phone] P:[phone] MPI Imaging Report Patient Name: CHRISSY STANLEY B : 1950 Study Date: 07/28/2024 7:20:28 AM Gender: F Tech: [facility] Location: 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 MF: MEI Report ID: [id number] Reading Location: [place] [address] Lisette Coley IMG DXA PROCEDURES Final Result [...] Spivey MD Final Result * MAMMOGRAPHY (06/26/2018) Mammogram Normal Historical Provider HEALTH MAINTENANCE Final Result * (ABNORMAL) Colonoscopy (06/05/2016) Anatomical Region Laterality Modality Other Historical Provider ENDOSCOPY PROCEDURES Lexi l Result from Last 3 Months or Most Recently Relevant to Health Maintenance Insurance MEDICARE [facility] Member Subscriber Plan / Payer (Ef fective 2019-Present) Name:Chrissy Stanley Relation to Subscriber:Self Name:Chrissy Stanley Payer ID:[id number] Group ID:Not on file Type:[employer] Address: [address] [place] [address] MEDICARE [facility] Member Subscriber Plan / Payer ( fective 2018-Present) Name:Stanley Chrissy Марина Relation to Subscriber:Self Name:Stanley Chrissy Parish Payer ID:[id number] Group ID:Not on file Type:[employer] Address: [address] [place] [address] MEDICARE [facility] Care Teams Secondary English Teacher Relationship Specialty Start Date End Date Hector Spivey MD PCP - General Family Medicine 04/11/21 Dr. Sally Storm [address] [facility] [address], [address] 04/06/24
--- OUTSIDE RECORDS SUMMARY | 2024-08-31 01:03 | XMS_ITS | Encounter Summary ---
Author Organization [facility] Healthcare Address [address] [place] [address] Care Team Providers Care Dumpman Name Role Phone Hector Spivey MD Primary Care Provider [phone] Encounter Details Date Type Department Care Team (Late st Contact Info) Description 07/29/2024 Results Follow-Up [facility] Medical Group Cardiology [address] [place] [address] Altaf Hogan MD [address] [place] [address] Social History Tobacco Use Types Packs/Day [...] on filedocumented in this encounter Care Teams Dumpman Relationship Specialty Start Date End Date Hector Spivey MD PCP - General Family Medicine 04/11/21 Dr. Sally Storm [address] [facility] [address], [place] [address] Family Medicine 04/06/24 documented as of this encounter
--- OUTSIDE RECORDS SUMMARY | 2024-08-31 01:03 | XMS_ITS | Clinical Summary ---
Author Organization [facility] Address [address] [place] [address] Phone Care Team Providers Care Triage Assistant Name Role Phone Provider, Unknown Primary Care [...] age to complete this topic Insurance MEDICARE [facility] Care Teams Triage Assistant Relationship Specialty Start Date End Date Provider, Unknown UNKNOWN PCP - General 12/31/17
--- OUTSIDE RECORDS SUMMARY | 2024-08-31 01:03 | XMS_ITS | Continuity of Care Document ---
Author Organization [facility] Address [address] [place] [address] Phone Care Team Providers Care Superintendent Cemetery Name Role Phone Michael MICHEL, Les Unavailable [...] Diagnoses Date Provider Providers Copied on Encounter [facility], [address], [place], [address], [place] tel:[phone] [facility] 1 No Information 4 Michael Saldana. [address], [facility], [place], [place], [id number] , [place]. tel: [phone] OFFICE/OUTPAT IENT VISIT EST [facility], [address], [place], [address], [place] tel: [phone] [facility] 1 Atrial Fibrillation 4 Michael Saldana. [address], [facility], [place], [place], [id number] , [place]. tel: [phone] Referring Provider: Les Rodriguez MD, [address] [facility], [place], [address] . tel:[phone] OFFICE/OUTPAT IENT VISIT, EST [facility], [address], [place], [address], [place] tel: [phone] [facility] Atrial Fibrillation 3 Michael Saldana. [address], [facility], [place], [place], [id number] , [place]. tel: [phone] [facility], [address], [place], [address], [place] tel: [phone] [facility] No Information 1 Narendra Tamayo . [address], [facility], [place], [address], [place]. tel: [phone] Referring Provider: Les Rodriguez MD, [address] [facility], [place], [address] . tel:[phone] OFFICE/OUTPAT IENT VISIT, EST [facility], [address], [place], [address], [place] tel: [phone] [facility] Chest PainAbnormal Stress TestAtrial Fibrillation 1 Michael Saldana. [address], [facility], [place], [place], [id number] , [place]. tel: [phone] Referring Provider: Les Rodriguez MD, [address] [facility], [place], [address] . tel:[phone] OFFICE/OUTPAT IENT VISIT, EST [facility], [address], [place], [address], [place] tel: [phone] [facility] Atrial Fibrillation Nov-0 201 0 Michael Saldana. [address], [facility], [place], [place], [id number] , [place]. tel: [phone] Referring Provider: Les Rodriguez MD, [address] [facility], [place], [address] . tel:[phone] OFFICE/OUTPAT IENT VISIT, EST [facility], [address], [place], [address], [place] tel: [phone] [facility] Atrial FibrillationChest Pain 0 Michael Saldana. [address], [facility], [place], [place], [id number] , [place]. tel: [phone] Referring Provider: Les Rodriguez MD, [address] [facility], [place], [address] . tel:[phone] [facility], [address], [place], [address], [place] tel: [phone] [facility] No Information 0 Micahel Saldana. [address], [facility], [place], [place], [id number] , [place]. tel: [phone] Referring Provider: Les Rodriguez MD, [address] [facility], [place], [address] . tel:[phone] OFFICE CONSULTATION [facility], [address], [place], [address], [place] tel: [phone] [facility] Atrial FibrillationHypokal emiaHypothyroidism 201 0 Michael Saldana. [address], [facility], [place], [place], [id number] , [place]. tel:[phone] Family History Family Member Type Diagnosis Age At Onset No Information Payers Payer name Insurance type Covered democrat ID Angie fall(mary) Michel [id number] Social History Type Description Quantity Date Captured [...]
[2024-08-31] MEDS: ACETAMINOPHEN 500 MG TABLET 1000 MG PO (10:25)
[2024-08-31] MEDS: TRANEXAMIC ACID 1,000MG/ISO100 1,000 MG/100 ML BAG 200 MG IVPB (10:30)
--- NOTE | 2024-08-31 10:51 | WPDHPUPDATE1 ---
History and Physical Update Update Date/Time: 08/31/24 10:51 History and Physical has been reviewed, including an updated exam of the patient. There are NO changes in the patient's condition. Risks, benefits, and alternatives have been discussed and questions answered. Patient agrees to proceed with procedure.
--- NOTE | 2024-08-31 11:56 | P.PNAN_ITS ---
Anes - Initial Pre Proc Eval Procedure: Operation Date: 08/31/24 12:00 Proposed Procedures p Right Total Knee Arthroplasty - Fredrick Dow MD Date/Time: 08/31/24 11:56 Surgeon: Fredrick Dow MD Pre Op Diagnosis: right knee DJD Patient Data Age: 74 Gender: F Height: 1.63 m Weight: 63.1 kg Last Vital Signs Temp 36.2 C L 08/31/24 10:05 Pulse 63 08/31/24 10:05 Resp 16 08/31/24 10:05 BP 138/70 08/31/24 10:05 Pulse Ox 99 08/31/24 10:05 O2 Del Method Room Air 08/31/24 10:05 Allergies Allergy/AdvReac Type Severity Reaction Status Date / Time levofloxacin Allergy Intermediate insomnia Verified 08/17/24 14:21 Sulfa (Sulfonamide Allergy Intermediate Sulfa Verified 08/17/24 14:21 Antibiotics) (Sulfonamide Antibiotics) ([id number]) trimethoprim Allergy Mild trimethoprim Verified 08/17/24 14:21 ([id number]) bacitracin Allergy Unknown bacitracin Verified 08/17/24 14:21 ([id number]) clarithromycin Allergy Unknown clarithromycin Verified 08/17/24 14:21 ([id number]) diphenhydramine Allergy Unknown diphenhydramine Verified 08/17/24 14:21 ([id number]) nickel Allergy Unknown Unknown Verified 08/17/24 14:21 Penicillins Allergy Unknown Penicillins Verified 08/17/24 14:21 ([id number]) pseudoephedrine Allergy Unknown pseudoephedrine Verified 08/17/24 14:21 ([id number]) bee venom protein (honey bee) Allergy Swelling Verified 08/17/24 14:21 cinnamon Allergy Anaphylaxis Verified 08/17/24 14:21 coconut Allergy Hives Verified 08/17/24 14:21 loratadine Allergy Insomnia Verified 08/17/24 14:21 silicone AdvReac Unknown silicone Verified 08/17/24 14:21 ([id number]) Home Medications ?Medication ?Instructions ?Recorded ?Confirmed ?Type epinephrine 0.3 mg/0.3 mL 0.3 mg IM ONCE PRN anaphylaxis 05/24/19 08/17/24 History injection, auto-injector (EpiPen) xqpjnhkg-ggynsys-mgoa-lutein tablet 1 tablet PO DAILY 05/25/19 08/17/24 History vitamin B complex 1 tablet PO DAILY 05/25/19 08/17/24 History apixaban 5 mg tablet (Eliquis) 5 mg PO BID 05/11/24 08/17/24 History atorvastatin 40 mg tablet (Lipitor) 40 mg PO DAILY 05/11/24 08/17/24 History levothyroxine 25 mcg capsule 25 mcg PO DAILY 05/11/24 08/17/24 History losartan 25 mg tablet 25 mg PO HS 05/11/24 08/17/24 History pantoprazole 40 mg tablet,delayed 40 mg PO QHS 05/11/24 08/17/24 History release (Protonix) rivastigmine 4.6 mg/24 hour 4.6 mg transdermal .q24 07/28/24 08/17/24 History transdermal patch calcium carbonate (Calcium 600) 600 mg PO DAILY 07/29/24 08/17/24 History cholecalciferol (vitamin D3) 125 125 mcg PO DAILY 07/29/24 08/17/24 History mcg (5,000 unit) capsule folic acid 800 mcg tablet 800 mcg PO DAILY 07/29/24 08/17/24 History sertraline 25 mg tablet 12.5 mg PO HS 07/29/24 08/17/24 History chlorhexidine gluconate 4 % 1 applic topical ONCE #237 mL 08/17/24 08/17/24 Rx topical liquid (Hibiclens) magnesium 200 mg tablet 200 mg PO DAILY 08/17/24 08/17/24 History omega 5-hib-eor-fish oil 1,200 mg 1 cap PO DAILY 08/17/24 08/17/24 History (144 mg-216 mg) capsule (Fish Oil) Laboratory Tests 08/31/24 10:37 Blood Type A Positive Antibody Screen Pending Patient hx anesthesia problems: none Family hx anesthesia problems: none Results Review: All pre-operative results and documents have been reviewed as part of the pre- operative evaluation. 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 Social History Social History Smoking packs per day: 1 Smoking cigarettes per day: 20.0 Years smoked: 7 Smoking pack-years: 7.00 Smoking status: Former smoker Tobacco type: cigarettes Second hand tobacco smoke exposure: Yes Smoking end date: 04/28/82 Alcohol intake: current Drinks per week: 14 Alcohol use details: wine Substance use: former Substance use type: marijuana Last use: 1974 Do You Feel Safe in your Home?: Yes Lack of Transportation: YES Lack of Food: Never True Current Housing: I Have Housing Concerned About Future Housing: No Difficulty Paying Gas/Electric Bills: No Difficulty Paying for Meds: No Currently Unemployed: No Education: Master's Degree or Higher Difficulty w/ Childcare or Family Care: No Living arrangements: with family Additional living arrangements comments: Gender identity (if verbalized by the patient): Female Spiritual care concerns: No Anes - Eval Final PreProcedure Day of Procedure 08/31/24 11:56 Patient weight: normal Heart: regular rate and rhythm Lungs: clear to auscultation Airway: Mallampati scale class II Neurological: alert and oriented Last oral intake: >/= 8 hours ASA classification: III Emergent: no Anesthetic plan: proceed Anesthesia type and monitoring: general LMA and standard monitoring Results Review: All pre-operative results and documents have been reviewed as part of the pre- operative evaluation. Informed Consent: The patient's anesthetic plan and its attendant risks and benefits were discussed with the patient/family/POA. Questions were solicited and answers provided to the satisfaction of the patient/family/POA.
[2024-08-31] MEDS: ceFAZolin 2 GM/D5W 50 ML 2 GM/50 ML BAG IVPB ×2 (12:14→20:56)
[2024-08-31] MEDS: SODIUM CHLORIDE 0.9% IV 37.7 ML, MORPHINE SULFATE INJ (*CRX) 2 MG, ROPivacaine HCL 1% 2... INFILTRATE (12:50)
[2024-08-31] MEDS: LACTATED RINGERS 1,000 ML 30 ML IV CONT (13:57)
--- NOTE | 2024-08-31 13:57 | W.PM.PROC2 ---
Procedure Note - Detailed Date of Procedure 08/31/24 Pre-op Diagnosis right knee DJD Post-op Diagnosis Same Procedure Performed R TKA Surgeon Fredrick Dow MD Anesthesia General Description of Procedure THE RIGHT KNEE WAS PREPPED AND DRAPED IN THE STERILE FASHION. THERE WAS A 10 DEGREE FLEXION CONTRACTURE. A MIDLINE SKIN INCISION WAS MADE. A MEDIAL PARAPATELLAR ARTHROTOMY WAS MADE. THE PATELLA WAS EVERTED. THERE WAS TRICOMPARTMENT DJD. THERE WAS MINIMAL PATELLA DJD. AN INTRAMEDULLARY KINSEY WAS PLACED IN THE FEMUR. A DISTAL FEMORAL CUT WAS MADE IN 5 DEGREES OF VALGUS REMOVING APPROXIMATELY 9 MM OF BONE FROM THE DISTAL FEMUR. THE FEMUR WAS SIZED TO 60. A 60 FEMORAL CUTTING BLOCK WAS PLACED IN 3 DEGREES OF EXTERNAL ROTATION AND IN ALIGNMENT WITH JUDITH'S LINE AND THE TRANSEPICONDYLAR AXIS. ANTERIOR POSTERIOR AND CHAMFER CUTS WERE MADE. THE CUTS WERE EXCELLENT. NEXT AN INTRAMEDULLARY CUTTING GUIDE WAS PLACED IN THE TIBIA. A TRANS TIBIAL CUT WAS MADE ALONG THE LONG AXIS OF THE TIBIA. APPROXIMATELY 10 MM OF BONE WAS REMOVED FROM THE HIGH SIDE OF THE TIBIA. THE TIBIA WAS THEN PLANED TO A SMOOTH SURFACE. POSTERIOR FEMORAL OSTEOPHYTES WERE REMOVED FROM THE FEMORAL CONDYLES. A 71 TIBIAL TRIAL WAS PLACED IN ALIGNMENT WITH THE 1/3 MEDIAL ASPECT OF THE TIBIAL TUBERCLE. THEN A 60 FEMORAL TRIAL COMPONENT WAS PLACED. BOTH HAD EXCELLENT FITS. EVENTUALLY A 10 MM CR POLYETHYLENE TRIAL COMPONENT WAS PLACED. THE KNEE WAS TAKEN THROUGH A RANGE OF MOTION. THE KNEE CAME OUT TO FULL EXTENSION. THERE WAS NO ABNORMAL TILT TO THE PATELLA. THERE WAS GOOD A/P AND VARUS/VALGUS STABILITY. THERE WAS NO EXCESSIVE ROLL BACK WITH FLEXION. THE TRIAL COMPONENTS WERE REMOVED. THEN A 60 FEMORAL COMPONENT AND 71 TIBIAL COMPONENT WITH A 10 CR POLYETHYLENE COMPONENT WERE CEMENTED INTO PLACE. ONCE THE CEMENT WAS HARD THE KNEE WAS TAKEN THROUGH A ROM AGAIN AND FOUND TO BE STABLE WITH NO PATELLA TILT NO EXCESSIVE ROLL BACK WITH FLEXION AND GOOD STABILITY WITH COMPLETE AND FULL EXTENSION. THE KNEE WAS IRRIGATED WITH STERILE BETADINE AND WATER FOR ABOUT 3 MINUTES. THE BLEEDERS WERE CAUTERIZED. THE ARTHROTOMY WAS REPAIRED WITH NUMBER 1 VICRYL. THE SUB CUTANEOUS LAYER WITH 2-0 VICRYL AND THE SKIN WITH HUY. THE WOUND WAS WASHED AND A STERILE DRESSING WAS APPLIED. PATIENT WAS EXTUBATED. Estimated Blood Loss -150.0 Pathology None sent Complications No immediate complications Condition Stable Disposition PACU
[2024-08-31] MEDS: TRANEXAMIC ACID 1,000 MG/10 ML AMPUL 1000 MG IV PUSH (14:02)
--- NOTE | 2024-08-31 14:16 | WPDANESPNB ---
Anes - Peripheral Nerve Block Date/Time: 08/31/24 14:16 I have discussed with the patient/family/POA the placement of a peripheral nerve block for post-operative pain management, including associated risks, benefits, complications, and side effects. Alternative methods of post-operative analgesia were detailed. Questions were solicited and answers provided to the satisfaction of the patient/family/POA. Time-Out: A pre-procedural Time-Out was completed immediately before starting the procedure and confirmed: Patient Identification, Site, Procedure, Patient Position and the Availability of Requisite Equipment. Clinical Indications: Acute post-operative pain management requested by the operative surgeon. Nerve Block Insertion Note Anes-nerve block: adductor canal right Patient position: supine Skin prep: chlorhexidine Needle: 22 gauge, stimulating, insulated echogenic needle. Needle length: 80 mm Technique: ultrasound Technique comment: done in pacu Injectate: bupivacaine 0.5% with epi 5 mcg/ml (30ml no epi) and dexamethasone (mg) (4) Observations: tolerated well Complications: none Procedure start time:: 1403 Procedure end time:: 1410
[2024-08-31] MEDS: fentaNYL CITRATE INJ (*CRX) 100 MCG/2 ML VIAL 25 MCG IV PUSH ×4 (14:19→14:45)
[2024-08-31] MEDS: diazePAM INJ (*CRX) 10 MG/2 ML SYRINGE 2.5 MG IV PUSH (14:54)
--- NOTE | 2024-08-31 15:40 | ADMGEN ---
This patient, Chrissy Hernandez, was admitted to [facility] Surg Room 312-01. Patient/family oriented to hospital policies and general routines including ID bracelet, bed and alarms, visiting hours, pain management, procedures, bathroom and other care routines, personal items, smoking policy, room service/diet, and visiting hours. Information on how to activate the Rapid Response Team has been discussed. Patient/Family are encouraged to report perceived risks to care and to ask questions if they do not understand what they are told or what they should do.
[2024-08-31] MEDS: ACETAMINOPHEN 500 MG TABLET PO (15:50)
[2024-08-31] MEDS: SODIUM CHLORIDE 0.9% IV 1,000 ML 125 ML IV CONT (15:52)
[2024-08-31] MEDS: CELECOXIB 200 MG CAPSULE PO (16:08)
[2024-08-31] MEDS: oxyCODONE/ACETAMINOPHEN (*CRX) 5-325 MG TABLET 1 TABLET PO (16:43)
[2024-08-31] MEDS: SERTRALINE HCL 12.5 MG TABLET PO (20:57)
[2024-08-31] MEDS: SENNA/DOCUSATE SODIUM TABLET 2 TAB PO (20:57)
[2024-08-31] MEDS: FAMOTIDINE 20 MG TABLET PO (20:57)
[2024-08-31] MEDS: APIXABAN 5 MG TABLET PO (20:57)
[2024-08-31] MEDS: LOSARTAN POTASSIUM 25 MG TABLET PO (20:58)
[2024-09-01 00:16] VITALS: BP 123/60; PULSE 69; RESP 20; TEMP 36.4; O2SAT 98
[2024-09-01 04:34] VITALS: BP 124/49; PULSE 101; RESP 18; TEMP 36.4; O2SAT 96
[2024-09-01] MEDS: ACETAMINOPHEN 500 MG TABLET PO ×2 (04:35→12:21)
[2024-09-01] MEDS: ceFAZolin 2 GM/D5W 50 ML 2 GM/50 ML BAG IVPB ×2 (04:36→11:41)
[2024-09-01] MEDS: LEVOTHYROXINE SODIUM 25 MCG TABLET PO (04:36)
[2024-09-01 07:12] LABS: Basophils Percent Auto 0.2 % (0.2-1.2); Hematocrit 33.2 % (37.0-47.0); Hemoglobin 10.3 g/dL (12.0-15.0); Immature Granulocyte Absolute 0.18 K/mm3 (0.00-0.031); Immature Granulocyte Percent A 1.1 % (0-0.5); Lymphocytes Absolute Auto 0.99 K/mm3 (0.9-3.2); Lymphocytes Percent Auto 5.9 % (18.3-44.2); Mean Corpuscular Hemoglobin 30.5 pg (26-34); Mean Corpuscular Volume 98.2 fl (80-100); Mean Platelet Volume 11.3 fl (7.4-10.4); Neutrophils Absolute Auto 14.5 K/mm3 (1.3-6.7); Neutrophils Percent Auto 86.8 % (45.5-73.1); Platelet Count Result 185 k/mm3 (150-375); Red Blood Count 3.38 M/mm3 (4.2-5.4); Red Cell Distribution Width 13.2 % (11.5-14.5); White Blood Count 16.7 K/mm3 (4.5-10.0)
[2024-09-01 07:24] LABS: Anion Gap 6 mmol/L (4-12); Blood Urea Nitrogen 19 mg/dL (7-17); Calcium 8.9 mg/dL (8.4-10.2); Carbon Dioxide 26 mmol/L (22-30); Chloride 103 mmol/L (98-107); Estimated CRCL calculation 52 ml/min; Estimated Glomerular Filt Rate > 60; Glucose 125 mg/dL (65-110); Potassium 4.8 mmol/L (3.4-5.0); Sodium 135 mmol/L (137-145)
[2024-09-01 08:00] VITALS: BP 109/48; PULSE 65; RESP 20; TEMP 36.2; O2SAT 99
[2024-09-01] MEDS: FAMOTIDINE 20 MG TABLET PO (08:47)
[2024-09-01] MEDS: ATORVASTATIN 40 MG TABLET PO (08:47)
[2024-09-01] MEDS: CELECOXIB 200 MG CAPSULE PO (08:47)
[2024-09-01] MEDS: APIXABAN 5 MG TABLET PO (08:48)
[2024-09-01] MEDS: SENNA/DOCUSATE SODIUM TABLET 2 TAB PO (08:48)
[2024-09-01] MEDS: CHOLECALCIFEROL 5,000 UNITS TABLET 5000 UNITS BY MOUTH (08:48)
[2024-09-01 12:00] VITALS: BP 115/57; PULSE 64; RESP 20; TEMP 37; O2SAT 96
--- NOTE | 2024-09-01 14:22 | P.PNOP_ITS ---
Progress Note: A&P Assessment and Plan (1) Right knee DJD: Code(s): M17.11 - Unilateral primary osteoarthritis, right knee Status: Acute Assessment and Plan: POD 1 DOING WELL. OK TO DC HOME F/U IN 3 WEEKS Subjective Subjective Date/Time Seen: 09/01/24 14:22 Interval history: POD 1 DOING WELL. NO CALF PAIN. 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 DRESSING DRY NV INTACT NEG HOMANS SIGN, CALF SOFT NON TENDER Objective Data Vital Signs Vital Signs: Vital Signs - 24 hr 08/31/24 14:25 08/31/24 14:30 08/31/24 14:40 Temperature Pulse Rate 80 80 Respiratory Rate 12 16 Blood Pressure 121/54 L 128/63 Pulse Oximetry 98 98 Oxygen Delivery Simple Face Mask Room Air Nasal Cannula Oxygen Flow Rate 8 2 08/31/24 14:55 08/31/24 15:10 08/31/24 15:19 Temperature 36.3 C L Pulse Rate 76 77 78 Respiratory Rate 14 14 15 Blood Pressure 122/51 L 116/58 L 125/58 L Pulse Oximetry 94 95 98 Oxygen Delivery Nasal Cannula Nasal Cannula Nasal Cannula Oxygen Flow Rate 2 2 2 08/31/24 15:25 08/31/24 15:30 08/31/24 15:45 Temperature 36.3 C L 36.0 C L Pulse Rate 71 74 Respiratory Rate 16 16 Blood Pressure 101/54 L 144/58 H Pulse Oximetry 98 100 98 Oxygen Delivery Nasal Cannula Oxygen Flow Rate 2 08/31/24 16:15 08/31/24 16:30 08/31/24 17:15 Temperature 36.6 C 36.7 C Pulse Rate 74 83 Respiratory Rate 16 16 Blood Pressure 129/59 L 136/47 L Pulse Oximetry 100 90 Oxygen Delivery Room Air Oxygen Flow Rate 08/31/24 21:49 09/01/24 00:16 09/01/24 04:34 Temperature 36.6 C 36.4 C 36.4 C Pulse Rate 67 69 101 H Respiratory Rate 16 20 18 Blood Pressure 164/94 H 123/60 124/49 L Pulse Oximetry 99 98 96 Oxygen Delivery Oxygen Flow Rate 09/01/24 08:00 09/01/24 12:00 Temperature 36.2 C L 37.0 C Pulse Rate 65 64 Respiratory Rate 20 20 Blood Pressure 109/48 L 115/57 L Pulse Oximetry 99 96 Oxygen Delivery Oxygen Flow Rate Intake/Output Intake/Output: Intake & Output 08/29/24 08/30/24 08/31/24 09/01/24 23:59 23:59 23:59 23:59 Intake Total 990 840 Balance 990 840 Meds/Results Medications: Active Medications Generic Name Dose Route Start Last Admin Trade Name Freq PRN Reason Stop Dose Admin Acetaminophen 500 mg 08/31/24 15:20 09/01/24 12:21 Acetaminophen 500 Mg Tablet PO 500 mg Q6H PRN Administration Pain Rated 1-3 Apixaban 5 mg 08/31/24 21:00 09/01/24 08:48 Apixaban 5 Mg Tablet PO 5 mg Q12HR STUART Administration Atorvastatin Calcium 40 mg 09/01/24 09:00 09/01/24 08:47 Atorvastatin 40 Mg Tablet PO 40 mg DAILY STUART Administration Celecoxib 200 mg 08/31/24 17:00 09/01/24 08:47 Celecoxib 200 Mg Capsule PO 200 mg BIDWM STUART Administration Diazepam 5 mg 08/31/24 15:20 Diazepam (*Crx) 5 Mg Tablet PO Q8H PRN Spasms Diphenhydramine HCl 25 mg 08/31/24 15:20 Diphenhydramine Hcl Inj 50 Mg/Ml Vial IV PUSH Q6H PRN Itching Famotidine 20 mg 08/31/24 21:00 09/01/24 08:47 Famotidine 20 Mg Tablet PO 20 mg Q12HR STUART Administration Hydromorphone HCl 1 mg 08/31/24 15:20 Hydromorphone Hcl Inj (*Crx) 1 Mg/Ml Syr IV PUSH Q2H PRN Breakthrough Pain Rated 7-10 or NPO Hydromorphone HCl 0.5 mg 08/31/24 15:20 Hydromorphone Hcl Inj (*Crx) 1 Mg/Ml Syr IV PUSH Q2H PRN Breakthrough Pain Rated 4-6 or NPO Ibuprofen 800 mg in 200 mls @ 400 mls/hr 08/31/24 15:20 Caldolor 800 Mg/200 Ml IVPB Q6H PRN Breakthrough Pain Rated 1-3 or NPO Levothyroxine Sodium 25 mcg 09/01/24 06:30 09/01/24 04:36 Levothyroxine Sodium 25 Mcg Tablet PO 25 mcg DAILY@0630 STUART Administration Losartan Potassium 25 mg 08/31/24 21:00 08/31/24 20:58 Losartan Potassium 25 Mg Tablet PO 25 mg HS STUART Administration Naloxone HCl 0.1 mg 08/31/24 15:20 Naloxone Hcl 0.4 Mg/Ml Vial IV PUSH Q2M PRN Opiate Reversal Ondansetron HCl 4 mg 08/31/24 15:20 Ondansetron Inj 4 Mg/2 Ml Vial IV PUSH Q4H PRN Nausea And Vomiting Oxycodone/Acetaminophen 1 tablet 08/31/24 15:20 08/31/24 16:43 Oxycodone/Acetaminophen (*Crx) 5-325 Mg Tablet PO 1 tablet Q4H PRN Administration Pain Rated 4-6 Oxycodone/Acetaminophen 1 tab 08/31/24 15:20 Oxycodone/Acetaminophen (*Crx) 10-325 Mg Tablet PO Q6H PRN Pain Rated 7-10 Polyethylene Glycol 17 gm 09/01/24 09:00 09/01/24 08:49 Polyethylene Glycol 3350 17 Gm Powd.Pack PO Not Given QAM STUART Senna/Docusate Sodium 2 tab 08/31/24 21:00 09/01/24 08:48 Senna/Docusate Sodium Tablet PO 2 tab Q12HR STUART Administration Sertraline HCl 12.5 mg 08/31/24 21:00 08/31/24 20:57 Sertraline Hcl 12.5 Mg Tablet PO 12.5 mg HS STUART Administration Vitamin D 5,000 units 09/01/24 09:00 09/01/24 08:48 Cholecalciferol 5,000 Units Tablet BY MOUTH 5,000 units DAILY STUART Administration Radiology Results: ITS Impressions Knee X-Ray 08/31/24 14:26 IMPRESSION: 1. Right total knee arthroplasty, negative for postoperative purposes. Labs Labs: Laboratory Results - last 24 hr 09/01/24 06:35 WBC 16.7 H RBC 3.38 L Hgb 10.3 L D Hct 33.2 L MCV 98.2 MCH 30.5 MCHC 31.0 L RDW 13.2 Plt Count 185 MPV 11.3 H Immature Gran % (Auto) 1.1 H Neut % (Auto) 86.8 H Lymph % (Auto) 5.9 L [place] % (Auto) 6.0 Eos % (Auto) 0.0 Baso % (Auto) 0.2 Lymph # (Auto) 0.99 [place] # (Auto) 1.0 H Eos # (Auto) 0.0 Baso # (Auto) 0.0 Abs Immat Gran (auto) 0.18 H Absolute Neuts (auto) 14.5 H Absolute Nucleated RBC 0.000 Nucleated RBC % 0.0 Sodium 135 L Potassium 4.8 Chloride 103 Carbon Dioxide 26 Anion Gap 6 BUN 19 H Creatinine 0.69 L Estim Creat Clear Calc 52 Estimated GFR > 60 Glucose 125 H Calcium 8.9
== END 2024-09-01 14:43 | disposition home health service (06) ==
LOC: ANHSURGERY 09:52 → ANH3MEDSUR 15:36
PROVIDERS: PCP Family Medicine; Visit Provider Orthopaedic Surgery
PROC: (CPT 27447; principal; 2024-08-31 12:00)
DX: M17.11 Unilateral primary osteoarthritis, right knee (principal); G89.18 Other acute postprocedural pain; Z87.891 Personal history of nicotine dependence
CPT/HCPCS: 27447; 64447; 36415; 73560; 80048; 85025; 86850; 86900; 86901; 97110; 97161; 97165; 97530; A9270; C1713; J0171; J0690; J1100; J1885; J2250; J2270; J2704; J2795; J3010; J3360; J7030; J7120

== ENCOUNTER 2024-11-16 00:58 | Day surgery (SDC) | payer MEDICARE, OTHER, SELFPAY ==
[2024-11-15 13:04] VITALS: BMI 22.3
--- NOTE | 2024-11-15 13:36 | PC.NURSE ---
Report to the Outpatient Waiting Room, entrance under the green pavilion located off [facility], at time __8:30AM on date ____11/16/24___. Planned Procedure Time: ___10:30AM .? Time changes happen often and if your time is changed the preop area will call you the afternoon before. - You and your visitor will be asked to self-screen and do not enter if you have any COVID symptoms. Please call surgeon if you need to reschedule. - A mask is optional within the hospital at this time. Patients may have clear liquids (water, carbonated beverages, clear teas, apple juice) until 3 hours prior to surgery (7:30AM) with a maximum of 20 ounces. - No food from midnight until time of surgery and no smoking, or chewing tobacco (or any form of nicotine). No chewing gum, candy or mints. Take only the following medications with a SIP of water on the morning of surgery: ____LEVOTHYROXINE DO NOT STOP ANY OF YOUR OTHER PRESCRIPTION MEDICATIONS PRIOR TO SURGERY EXCEPT THE FOLLOWING Hold all vitamins and supplements for 3 days per anesthesiologist.-STARTING NOW 11/15/24. Medications to discontinue per physician ____HOLD ELIQUIS PER DR CHUNG Date to take last dose Please no make-up, nail mohawk, hairspray, perfume, deodorant, or body powder the day of surgery.? No jewelry (including any body piercings) or valuables the day of surgery, leave them at home.? Please take a shower or bath the night before, or the morning of, surgery with an antibacterial soap.? Wear comfortable, loose fitting clothing.? - Jewelry must be removed prior to entering the operating room.? Rings and piercings that are not removed may be cut off. - The hospital will not accept responsibility for valuables.? - Please leave all valuables, including medications, at home the day of surgery. If you are going home after surgery, a licensed delivery driver assistant must drive you home.? - NO public transportation without another adult if you receive anesthesia. - We recommend that an adult stay with you for 24 hours following discharge. - We also recommend that you do not drive, make important decision, drink alcoholic beverages, or take any drugs that were not prescribed by your health care provider for at least 24 hours after your discharge time. Follow any additional instructions given to you from your surgeon. Telephone instructions given to ____PATIENT'S , CAROLE__and asked if any additional questions and then verbalized understanding. Patient advised to call surgeon office or pre surgery nurse liaison [phone] if any additional questions.
[2024-11-16] VITALS (12 sets, daily range): BP systolic 113–149; BP diastolic 52–88; PULSE 56–72; RESP 12–20; TEMP 36.4–37.1; O2SAT 94–100
--- OUTSIDE RECORDS SUMMARY | 2024-11-16 01:00 | XMS_ITS | Referral Summary ---
Author Organization [facility] Virtual Care Address [address] [place] [phone] Phone Care Team Providers Care Winding Inspector And Tester Name Role Phone Hector Spivey MD Primary Care Provider [phone] Encounters Date Type Department Care Team Description 09/23/2024 Orders Only [facility] [place] [facility] [address] [place] [address] Hector Spivey MD 08/31/2024 Orders Only [facility] [address] [place] [address] Scanning, Provider from Last 3 Months Allergies [...] A M CDT Height 160 cm (5' 3) 08/02/2024 9:29 AM CDT Body Mass Index 24.66 08/02/2024 9:29 AM CDT Plan of Treatment Not on file Procedures Procedure Name Priority Date/Time Associated Diagnosis Comments SCAN - RADIOLOGY/IMAGING 09/23/2024 SCAN - RADIOLOGY/IMAGING 08/31/2024 DEXA AXIAL SKELETON BONE DENSITY 1 OR MORE SITES Schedule Routine, Read Routine (OP Routine) 07/26/2024 8:48 AM CDT Post-menopausal MAMMOGRAPHY Routine 06/26/2018 COLONOSCOPY Routine 06/05/2016 from Last 3 Months or Most Recently Relevant to Health Maintenance Results * SCAN - RADIOLOGY/IMAGING (09/23/2024) Anatomical Region Laterality Modality Other us Hector Spivey MD Final Result * SCAN - RADIOLOGY/IMAGING (08/31/2024) Anatomical Region Laterality Modality Other Provider Scanning Final Result * Dexa Axial Skeleton Bone Density 1 Or 2 Site (07/26/2024 8:48 AM CDT) Anatomical Region Laterality Modality Body N/A Mammography 07/26/2024 11:0 6 PM CDT Narrative 07/26/2024 11:07 PM CDT EXAM DESCRIPTION: DEXA AXIAL SKELETON BONE DENSITY 1 OR MORE SITES REASON FOR STUDY: 74 y/o year old F with given 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 MF: MEI Report ID: [id number] Reading Location: [id number] Lisette Coley IMG DXA PROCEDURES Final Result * MAMMOGRAPHY (06/26/2018) HM Mammogram Normal Historical Provider HEALTH MAINTENANCE Final Result * (ABNORMAL) Colonoscopy (06/05/2016) Anatomical Region Laterality Modality Other Historical Provider ENDOSCOPY PROCEDURES Lexi l Result from Last 3 Months or Most Recently Relevant to Health [place] [address] [facility] MEDICARE [facility] MEDICARE [facility] Member Subscriber Plan / Payer ( fective 2018-Present) Name:Chrissy Stanley Relation to Subscriber:Self Name:Chrissy Stanley Payer ID:[id number] Group ID:Not on file Type:[employer]bacon Address: [facility] [id number] [place] [id number] Care Teams Winding Inspector And Tester Relationship Specialty Start Date End Date Hector Spivey MD PCP - General Family Medicine 04/11/21 Dr. Sally Storm [address], [place] [phone] Family Medicine 04/06/24
--- OUTSIDE RECORDS SUMMARY | 2024-11-16 01:00 | XMS_ITS | Clinical Summary ---
Author Organization [facility] Address [address] [place] [address] Phone Care Team Providers Care Day Trader Name Role Phone Provider, Unknown Primary Care [...] 11:30 AM CDT Height 162.6 cm (5' 4) 12/31/2017 11:30 AM CDT Body Mass Index 22.31 12/31/2017 11:30 AM CDT Plan of Treatment Health Maintenance Due Date Last Done Comments Hepatitis C Virus (HCV) Screening 1949 Cologuard 1994 Colonoscopy 1994 Colorectal Cancer Screening 1994 Immunochemical Fecal Occult Blood 1994 Zoster Immunization (2 of 3) 06/23/2009 04/28/2009 Pneumococcal Immunization (5 0+ years) (2 of 2 - PCV) 11/20/2016 11/21/2015, 04/28/2010 SARS-COV-2 Immunization ( - 2023- season) 2023 Respiratory Syncytial Virus (RSV) Immunization (Adult) (1 - 1-dose 75+ series) 2024 Influenza Immunization (#1) 12/27/202402/28, 01/05/2016, 01/07/2014 Pneumococcal Immunization Combined Discontinued 11/21/2015, 04/28/2010 DTaP/Tdap/Td Immunization Discontinued 05/24/2016 TdaP Immunization Completed 05/24/2016 Hepatitis B Immunization Aged Out No longer eligible based on patient's age to complete this topic Human Papillomavirus (HPV) Immunization Aged Out No longer eligible based on patient's age to complete this topic Meningococcal Immunization (ACWY) Aged Out No longer eligible based on patient's age to complete this topic Rotavirus Immunization Aged Out No lo nger eligible based on patient's age to complete this topic Insurance MEDICARE [facility] Care Teams Day Trader Relationship Specialty Start Date End Date Provider, Unknown UNKNOWN PCP - General 12/31/17
--- OUTSIDE RECORDS SUMMARY | 2024-11-16 01:00 | XMS_ITS | Encounter Summary ---
Author Organization [facility] Healthcare Address [address] [place] [address] Care Team Providers Care Building Construction Teacher Name Role Phone Hector Spivey MD Primary Care Provider [phone] Encounter Details Date Type Department Care Team (Late st Contact Info) Description 09/23/2024 Orders Only [facility] [facility] Information Management [address] [place] [address] Hector Spivey MD [address] [place] [address] [address] Social History Tobacco Use Types Packs/Day Years [...] Associated Diagnosis Comments SCAN - RADIOLOGY/IMAGING 09/23/2024 documented in this encounter Results * SCAN - RADIOLOGY/IMAGING (09/23/2024) Anatomical Region Laterality Modality Other Hector Spivey MD Final Result documented in this encounter Visit Diagnoses Not on filedocumented in this encounter Care Teams Building Construction Teacher Relationship Specialty Start Date End Date Hector Spivey MD PCP - General Family Medicine 04/11/21 Dr. Sally Storm [address], [place] [phone] Family Medicine 04/06/24 documented as of this encounter
--- OUTSIDE RECORDS SUMMARY | 2024-11-16 01:00 | XMS_ITS | Clinical Summary ---
Author Organization [facility] Virtual Care Address [address] [place] [phone] Phone Care Team Providers Care Seat Pack Inspector Name Role Phone Hector Spievy MD Primary Care Provider [phone] Allergies Active Allergy Reactions Criticality Noted Date [...] Department Care Team Description 09/23/2024 Orders Only [facility] [place] Management [address] [place] [address] Hector Spivey MD 08/31/2024 Orders Only [facility] Information Management [address] [place] [address] Scanning, Provider from Last 3 Months Immunizations Immunization Administration Dates Next Due Influenza, Quadrivalent, Hig h Dose, Preservative Free, Intrr 02/03/2023 Influenza, Trivalent, High D ose, Split, Preservative Free, Intramuscular 03/27/2017,01/05/2016 Influenza, Unspecified 01/27/2024,2021,01/26/2021,01/06 Pneumococcal Conjugate PCV 13 11/13/2016 Pneumococcal Polysaccharide PPV23 11/22/2015,04/2010 Tdap 05/06/2016 ZOSTER Recombinant 04/14/2019,03/20/2019, 019 Surgical History Surgery Date Site/Laterality Comments NV TONSILLECTOMY & ADENOIDEC MALOU <AGE 12 Tonsillectomy With Adenoidectomy - (Added by TW Conv) NV CONIZATION CERVIX W/WO D& C RPR KNIFE/LASER Cervical Conization - (Added by TW Conv) NV LAPS TX ECTOPIC PREG W/O SALPING&/OOPHORECTOMY Laparoscopy With Excision Of Ectopic - (Added by TW Conv) NV NEUROPLASTY &/TRANSPOS ME SOLANGE NRV CARPAL TUNNE [...] Screening 1968 Well Visit 65+ 05/16/2023 05/16/2022 Influenza Vaccine (#1) 2024 , 02/03/2023, 03/07/2022, Additional history exists Depression Screening 08/02/2025 08/02/2024, 07/08/2024, 05/16/2022, Additional [...] (OP Routine) 07/26/2024 8:48 AM CDT Post-menopausal HM MAMMOGRAPHY Routine 06/26/2018 COLONOSCOPY Routine 06/05/2016 from Last 3 Months or Most Recently Relevant to Health Maintenance Results * SCAN - RADIOLOGY/IMAGING (09/23/2024) Anatomical Region Laterality Modality Other Hector Spivey MD Final Result * SCAN - RADIOLOGY/IMAGING (08/31/2024) Anatomical Region Laterality Modality Other us Provider Scanning Final Result * Dexa Axial Skeleton Bone Density 1 Or 2 Site (07/26/2024 8:48 AM CDT) Anatomical Region Laterality Modality Body N/A Mammography 07/26/2024 11:0 6 PM CDT Narrative 07/26/2024 11:07 PM CDT EXAM DESCRIPTION: DEXA AXIAL SKELETON BONE DENSITY 1 OR MORE SITES REASON FOR STUDY: 74 y/o year old F with given history of: post menopausal 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 MF: MEI Report ID: [id number] Reading Location: [place] [address] Procedure Note Lucian Cid MD - 07/26/2024 EXAM DESCRIPTION: DEXA AXIAL SKELETON BONE DENSITY 1 OR MORE SITES REASON FOR STUDY: 74 y/o year old F with given history of: post menopausal External Grinder Tool/Model: MyPrintCloud A (S/N [id number]) Facility LSC value of 0.022 for the [...] 11:07 PM - Electronically signed by Lucian iCd M.D. MF: MEI Report ID: [id number] Reading Location: [place] [address] Lisette Coley IMG DXA PROCEDURES Final Result * MAMMOGRAPHY (06/26/2018) Pathologist [facility] Mammogram Normal Historical Provider HEALTH MAINTENANCE Final Result * (ABNORMAL) Colonoscopy (06/05/2016) Anatomical Region Laterality Modality Other Historical Provider ENDOSCOPY PROCEDURES Lexi l Result from Last 3 Months or Most Recently Relevant to Health Maintenance Insurance MEDICARE [facility] Member Subscriber Plan / Payer (Ef fective 2019-Present) Name:Chrissy Stanley Relation to Subscriber:Self Name:Chrissy Stanley Payer ID:[id number] Group ID:Not on file Type:[facility] Address: [facility] [id number] [place], [place] [phone] MEDICARE [facility] MEDICARE [facility] Member Subscriber Plan / Payer (Ef fective 2018-Present) Name:Chrissy Stanley Relation to Subscriber:Self Name:Chrissy Stanley Payer ID:[id number] Group ID:Not on file Type:[facility] Address: [facility] [id number] [place] [address] Care Teams Seat Pack Inspector Relationship Specialty Start Date End Date Hector Spivey MD PCP - General Family Medicine 04/11/21 Dr. Sally Storm [address], [place] [address] Family Medicine 04/06/24
--- OUTSIDE RECORDS SUMMARY | 2024-11-16 01:00 | XMS_ITS | Continuity of Care Document ---
Author Organization [facility] Address [address] [place] [address] Phone Care Team Providers Care Business Leader Name Role Phone Michael MICHEL, Les Unavailable [...] Diagnoses Date Provider Providers Copied on Encounter [facility], [address], [place], [address], [place] tel:[phone] [place] 1 No Information 4 Michael Saldana. [address], [facility], [place], [place], [id number] , [place]. tel: [phone] OFFICE/OUTPAT IENT VISIT EST [facility], [address], [place], [address], [place] tel: [phone] [facility] 1 Atrial Fibrillation 4 Michael Saldana. [address], [facility], [place], [place], [id number] , [place]. tel: [phone] Referring Provider: Les Rodriguez MD, [address] [facility], [place], [address] . tel:[phone] OFFICE/OUTPAT IENT VISIT, EST [facility], [address], [place], [address], [place] tel: [phone] [facility] Atrial Fibrillation 3 Michael Saldana. [address], [facility], [place], [place], [id number] , [place]. tel: [phone] [facility], [address], [place], [address], [place] tel: [phone] [facility] No Information 1 Narendra Tamayo . [address], [facility], [place], [address], [place]. tel: [phone] Referring Provider: Les Rodriguez MD, [address] [facility], [place], [address] . tel:[phone] OFFICE/OUTPAT IENT VISIT, EST [facility], [address], [place], [address], [place] tel: [phone] [facility] Chest PainAbnormal Stress TestAtrial Fibrillation 1 Michael Saldana. [address], [facility], [place], [place], [id number] , [place]. tel: [phone] Referring Provider: Les Rodriguez MD, [address] [facility], [place], [address] . tel:[phone] OFFICE/OUTPAT IENT VISIT, EST [facility], [address], [place], [address], [place] tel: [phone] [facility] Atrial Fibrillation Nov-0 201 0 Michael Saldana. [address], [facility], [place], [place], [id number] , [place]. tel: [phone] Referring Provider: Les Rodriguez MD, [address] [facility], [place], [address] . tel:[phone] OFFICE/OUTPAT IENT VISIT, EST [facility], [address], [place], [address], [place] tel: [phone] [place] [facility] Atrial FibrillationChest Pain 0 Michael Saldana. [address], [facility], [place], [place], [address] , [place]. tel: [phone] Referring Provider: Les Rodriguez MD, [address] [facility], [place], [address] . tel:[phone] [facility], [address], [place], [address], [place] tel: [phone] [facility] No Information 0 Michael Saldana. [address], [facility], [place], [place], [id number] , [place]. tel: [phone] Referring Provider: Les Rodriguez MD, [address] [facility], [place], [address] . tel:[phone] OFFICE CONSULTATION [facility], [address], [place], [address], [place] tel: [phone] [facility] Atrial FibrillationHypokal emiaHypothyroidism 201 0 Michael Saldana. [address], [facility], [place], [place], [address] , [place]. tel:[phone] Family History Family Member Type Diagnosis Age At Onset No Information Payers Payer name Insurance type Covered libertarian ID Angie fall(mary) Michel [id number] Social History Type Description Quantity Date Captured [...]
--- OUTSIDE RECORDS SUMMARY | 2024-11-16 01:00 | XMS_ITS | Patient Health Record ---
Author Organization [facility] Address [address] [place] [address] Care Team Providers Care Supervisor Painting Shipyard Name Role Phone Sally Storm DO Primary Care Provider Trav Schumacher Unavailable Allergies Allergen (clinical drug ingredient) Drug/Non Drug Allergy documented on EMR Reaction Allergy Type Onset Date Status Penicillin Unknown Drug Allergy Active Reason For Referral No Information Medications Medication SIG (Take, Route, Fr equency, Duration) Notes Start Date End Date Status FLUoxetine HCl Activ e Lisinopril Active Social History Tobacco Use: Social History Observation Description Date Details (start date - stop date) Never Smoker NA - NA Tobacco Use/Smoking Question Answer Notes Are you a nonsmoker Plan Of Treatment No Information Insurance Providers Payer Name Payer Address Payer Phone Subscriber Number Group Number Insured Name Patient Relationship to Insured Coverage Start Date Coverage End Date MEDICARE [place] [address] [place] [address] [id number] DEMARCONIKUNJ SHEPPARD Self - patient is the insured [facility] MEDICARE SUPPLEMENT [address] ON LICENSE OF [facility] CARE CLAIM DIVISION [place], [place] [id number] Self - patient is the insured Medical (General) History Medical History History ICD Code arthritis cancer heart trouble HTN joint replacement Surgical History Surgery Date(Month/Year) thumb pinned tubal ligation Hospitalization History Reason Date(Month/Year) cervical cancer ectopic
--- NOTE | 2024-11-16 07:10 | WPDHPUPDATE1 ---
History and Physical Update Update Date/Time: 11/16/24 07:10 History and Physical has been reviewed, including an updated exam of the patient. There are NO changes in the patient's condition. Risks, benefits, and alternatives have been discussed and questions answered. Patient agrees to proceed with procedure.
[2024-11-16] MEDS: CELECOXIB 200 MG CAPSULE PO (08:45)
[2024-11-16] MEDS: ACETAMINOPHEN 500 MG TABLET 1000 MG PO (08:45)
[2024-11-16] MEDS: LACTATED RINGERS 1,000 ML 30 ML IV CONT (08:55)
--- NOTE | 2024-11-16 09:41 | WNDPHOTO ---
PHOTO ONLY - See Nursing Notes and/ or assessments for documentation.
--- NOTE | 2024-11-16 09:56 | WPDANESEPPF ---
Anes - Initial Pre Proc Eval Procedure: Operation Date: 11/16/24 10:30 Proposed Procedures p Right Knee Manipulation and Cortisone Injection - Fredrick Dow MD Date/Time: 11/16/24 09:56 Surgeon: Ferdrick Dow MD Pre Op Diagnosis: right knee adhesive capsulitis Patient Data Age: 74 Gender: F Height: 1.63 m Weight: 62.2 kg Last Vital Signs Temp 36.4 C 11/16/24 08:45 Pulse 65 11/16/24 08:45 Resp 16 11/16/24 08:45 BP 113/88 11/16/24 08:45 Pulse Ox 99 11/16/24 08:45 O2 Del Method Room Air 11/16/24 08:45 Allergies Allergy/AdvReac Type Severity Reaction Status Date / Time Sulfa (Sulfonamide Allergy Intermediate Sulfa Verified 11/16/24 09:25 Antibiotics) (Sulfonamide Antibiotics) ([id number]) trimethoprim Allergy Mild rash Verified 11/16/24 09:25 bacitracin Allergy Unknown RASH Verified 11/16/24 09:25 clarithromycin Allergy Unknown clarithromycin Verified 11/16/24 09:25 ([id number]) nickel Allergy Unknown RASH Verified 11/16/24 09:25 Penicillins Allergy Unknown RASH Verified 11/16/24 09:25 bee venom protein (honey bee) Allergy Swelling Verified 11/16/24 09:25 cinnamon Allergy Anaphylaxis Verified 11/16/24 09:25 coconut Allergy Hives Verified 11/16/24 09:25 levofloxacin AdvReac Intermediate insomnia Verified 11/16/24 09:25 diphenhydramine AdvReac Unknown PALPITATIONS, Verified 11/16/24 09:25 INCREASED HEART RATE pseudoephedrine AdvReac Unknown PALPITATION Verified 11/16/24 09:25 S silicone AdvReac Unknown REACTION Verified 11/16/24 09:25 TO URETERAL STENT loratadine AdvReac Insomnia Verified 11/16/24 09:25 Home Medications ?Medication ?Instructions ?Recorded ?Confirmed ?Type epinephrine 0.3 mg/0.3 mL 0.3 mg IM ONCE PRN anaphylaxis 05/24/19 11/15/24 History injection, auto-injector (EpiPen) qguwplxt-iugpuue-pblp-lutein tablet 1 tablet PO DAILY 05/25/19 11/16/24 History vitamin B complex 1 tablet PO DAILY 05/25/19 11/16/24 History apixaban 5 mg tablet (Eliquis) 5 mg PO BID 05/11/24 11/15/24 History atorvastatin 40 mg tablet (Lipitor) 40 mg PO DAILY 05/11/24 11/16/24 History levothyroxine 25 mcg capsule 25 mcg PO DAILY 05/11/24 11/16/24 History losartan 25 mg tablet 25 mg PO HS 05/11/24 11/16/24 History pantoprazole 40 mg tablet,delayed 40 mg PO QHS 05/11/24 11/16/24 History release (Protonix) calcium carbonate (Calcium 600) 600 mg PO DAILY 07/29/24 11/16/24 History cholecalciferol (vitamin D3) 125 125 mcg PO DAILY 07/29/24 11/16/24 History mcg (5,000 unit) capsule folic acid 800 mcg tablet 800 mcg PO DAILY 07/29/24 11/16/24 History sertraline 25 mg tablet 12.5 mg PO HS 07/29/24 11/16/24 History magnesium 200 mg tablet 200 mg PO DAILY 08/17/24 11/16/24 History omega 6-svh-fej-fish oil 1,200 mg 1 cap PO DAILY 08/17/24 11/16/24 History (144 mg-216 mg) capsule (Fish Oil) diazepam 5 mg tablet (Valium) 5 mg PO BID PRN muscle spasm #30 09/23/24 11/15/24 Rx tabs oxycodone-acetaminophen 5 mg-325 1 tablet PO Q12H PRN pain #30 tabs 09/23/24 11/15/24 Rx mg tablet Patient hx anesthesia problems: none Family hx anesthesia problems: other (daughter paranoia) Results Review: All pre-operative results and documents have been reviewed as part of the pre-operative evaluation. 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 Social History Social History Smoking packs per day: 1 Smoking cigarettes per day: 20.0 Years smoked: 7 Smoking pack-years: 7.00 Smoking status: Former smoker Second hand tobacco smoke exposure: Yes Alcohol intake: current Drinks per week: 14 Alcohol use details: wine Substance use: former Substance use type: marijuana Last use: 1974 Do You Feel Safe in your Home?: Yes Lack of Transportation: YES Lack of Food: Never True Current Housing: I Have Housing Concerned About Future Housing: No Difficulty Paying Gas/Electric Bills: No Difficulty Paying for Meds: No Currently Unemployed: No Education: Master's Degree or Higher Difficulty w/ Childcare or Family Care: No Living arrangements: with family Additional living arrangements comments: Gender identity (if verbalized by the patient): Female Spiritual care concerns: No Anes - Eval Final PreProcedure Day of Procedure 11/16/24 09:56 Patient weight: normal Heart: regular rate and rhythm Lungs: clear to auscultation Airway: Mallampati scale class II Neurological: alert and oriented Last oral intake: >/= 8 hours ASA classification: III Emergent: no Anesthetic plan: proceed Anesthesia type and monitoring: general and standard monitoring Results Review: All pre-operative results and documents have been reviewed as part of the pre-operative evaluation. Informed Consent: The patient's anesthetic plan and its attendant risks and benefits were discussed with the patient/family/POA. Questions were solicited and answers provided to the satisfaction of the patient/family/POA.
[2024-11-16] MEDS: methylPREDNISolone ACETATE 80 MG/ML VIAL 160 MG IM (10:05)
[2024-11-16] MEDS: LIDOCAINE 1% LOCAL INJ 10 ML VIAL 4 ML INFILTRATE (10:05)
--- NOTE | 2024-11-16 10:17 | W.PM.PROC2 ---
Procedure Note - Detailed Date of Procedure 11/16/24 Pre-op Diagnosis right knee adhesive capsulitis Post-op Diagnosis Same Procedure Performed ERIS, INJECTION RIGHT TKA Surgeon Fredrick Dow MD Anesthesia General Description of Procedure THE PATIENT WAS TAKEN TO THE OPERATING ROOM AND PLACED UNDER GENERAL ANESTHESIA. ONCE HE WAS CHEMICALLY PARALYZED THE RIGHT KNEE WAS MANIPULATED UNTIL ABOUT 125 DEG OF FLEXION AND FULL EXTENSION WERE ACHIEVED. NEXT THE RIGHT KNEE WAS PREPPED AND DRAPED STERILELY. DEPO MEDROL 80 MG X 2 CC AND MARCAINE 0.5% 7 CC WERE INJECTED IN TO THE RIGHT KNEE JOINT. THE PATIENT WAS SENT TO THE RECOVERY ROOM ONCE GENERAL ANESTHESIA WAS REVERSED, IN STABLE CONDITION. Estimated Blood Loss 0 Complications No immediate complications Disposition PACU
[2024-11-16] MEDS: fentaNYL CITRATE INJ (*CRX) 100 MCG/2 ML VIAL 25 MCG IV PUSH ×8 (10:26→11:14)
[2024-11-16] MEDS: HYDROmorphone HCL INJ (*CRX) 1 MG/ML SYR IV PUSH (11:25)
[2024-11-16] MEDS: oxyCODONE HCL (*CRX) 5 MG TAB IR PO (12:26)
== END 2024-11-16 13:15 | disposition home or self-care (01) ==
PROVIDERS: PCP Family Medicine; Visit Provider Orthopaedic Surgery
PROC: (CPT 27570; principal; 2024-11-16 10:30)
DX: M25.661 Stiffness of right knee, not elsewhere classified (principal); E78.5 Hyperlipidemia, unspecified; I48.0 Paroxysmal atrial fibrillation; F41.9 Anxiety disorder, unspecified; E03.9 Hypothyroidism, unspecified; K21.9 Gastro-esophageal reflux disease without esophagitis; G30.9 Alzheimer's disease, unspecified; F02.80 Dementia in other diseases classified elsewhere, unspecified severity, without behavioral disturbance, psychotic disturbance, mood disturbance, and anxiety; F12.90 Cannabis use, unspecified, uncomplicated; Z79.01 Long term (current) use of anticoagulants; Z79.891 Long term (current) use of opiate analgesic; Z98.890 Other specified postprocedural states; Z96.651 Presence of right artificial knee joint; Z87.891 Personal history of nicotine dependence
CPT/HCPCS: 27570; A9270; J0330; J1010; J1171; J2003; J2704; J3010; J7120

== ENCOUNTER 2024-12-28 13:15 | Outpatient (RCR) | payer MEDICARE, OTHER, SELFPAY ==
--- NOTE | 2024-09-30 13:01 | OPREHPOC ---
Outpatient Therapy Plan of Care This is a Multidisciplinary Plan of Care that may contain components documented by all disciplines (PT, OT, and ST.) PT Problem 1 PT Problem #1 Knowledge Deficit PT Goal 1 Goal / Goal Update 1. Patient will perform independent HEP Target Visit 3 PT Problem 2 PT Problem #2 Pain PT Goal 1 Goal / Goal Update 1. Pain 3/10 highest with ADLs Target Visit 10 PT Problem 3 PT Problem #3 Impaired Gait PT Goal 1 Goal / Goal Update 1. Patient will ambulate at least 200 feet on the 2 minute walk test without device Target Visit 10 PT Problem 4 PT Problem #4 Impaired Functional ADLs PT Goal 1 Goal / Goal Update 1. Patient will return to cooking and cleaning without limitation 2. Patient will be able to do light yard work Target Visit 10 PT Problem 5 PT Problem #5 Impaired Strength PT Goal 1 Goal / Goal Update 1. Right MMT 5/5 in all planes Target Visit 10
--- NOTE | 2024-09-30 13:01 | PTOPEVAL1 ---
Assessment and note entered by Daniella Gleason DPT Evaluation Information Assessment Status Evaluation ICD-10 Condition Codes (PT) Pain in right knee M25.561,Difficulty Walking R26. 2,Weakness R53.1,Aftercare following joint replacement surgery Z47.1 Subjective Information Pt is s/p R TKA on 08/31/24. Highest pain recently 9 /10 and lowest 7/10. Had home health therapy and reports she has been discharged. Also was using CPM. Continues to have difficulty with stairs at home, walking any distance and is using her walker all the time. Hardly using a wheelchair. Dressing independently and bathing independently with her close by. Pt is doing some light cooking/cleaning but difficulty standing to do much. Pt is not driving. Prior to surgery patient was independent with activities at home, did some yard work. Was driving. Patient goal: get around better, less pain Unsure follow up visit with MD. Reported Pain Level Pain Score 7: Self Report Assessment PT Clinical Summary The patient is presenting to skilled therapy s/p R TKA on 08/31/24. She presents with significantly decreased range of motion (30-75 degrees), decreased strength, gait and stair impairments. These impairments are contributing to her difficulty doing most activities at home including cooking/cleaning. She will highly benefit from therapy to address impairments in order to reduce pain and improve function. Plan of Care Interventions Electrical Stimulation,Gait Training,Hot Pack/Cold Pack,Intermittent Compression Pump,Manual Therapy ,Neuro Re-education,Patient/Caregiver Education, Therapeutic Activities,Therapeutic Exercise PT Services Indicated Yes Treatment Frequency and 2-3 times a week for 10 visits Duration These treatments will address the objective and functional deficits as defined above. The patient will be advanced safely and appropriately in order for the patient to progress towards his/her prior level of function. Additional exercises will be introduced and as well as a comprehensive home exercise program upon discharge, if needed, ?to ensure carryover of functional gains achieved in the clinic. This treatment plan has been reviewed and agreement upon by the patient.
--- NOTE | 2024-10-21 11:16 | OPREHPOC ---
Outpatient Therapy Plan of Care This is a Multidisciplinary Plan of Care that may contain components documented by all disciplines (PT, OT, and ST.) PT Problem 1 PT Problem #1 Knowledge Deficit PT Goal 1 Goal / Goal Update 1. Patient will perform independent HEP Target Visit 3 Progress Met PT Problem 2 PT Problem #2 Pain PT Goal 1 Goal / Goal Update 1. Pain 3/10 highest with ADLs update 10/21/24 1. improved to 4/10 lowest, still 9/10 highest Target Visit 20 Progress Partially Met PT Problem 3 PT Problem #3 Impaired Gait PT Goal 1 Goal / Goal Update 1. Patient will ambulate at least 200 feet on the 2 minute walk test without device update 10/21/24 1. 306 feet with device Target Visit 20 Progress Partially Met PT Problem 4 PT Problem #4 Impaired Functional ADLs PT Goal 1 Goal / Goal Update 1. Patient will return to cooking and cleaning without limitation 2. Patient will be able to do light yard work update 10/21/24 1. improved but still limited 2. unable Target Visit 10 Progress Partially Met PT Problem 5 PT Problem #5 Impaired Strength PT Goal 1 Goal / Goal Update 1. Right MMT 5/5 in all planes update 10/21/24 1. not assessed due to still limited range Target Visit 10 Progress Not Met
--- NOTE | 2024-10-21 11:16 | PTOPPROG ---
Assessment and note entered by Daniella Gleason DPT Evaluation Information Assessment Status Progress ICD-10 Condition Codes (PT) Pain in right knee M25.561,Difficulty Walking R26. 2,Weakness R53.1,Aftercare following joint replacement surgery Z47.1 Subjective Information Highest pain recently 8-9/10 and lowest 4/10. Still using her walker all the time and patient's reports he thinks she looks better navigating stairs. Has been able to start doing more at home like putting the dishes away. Totally independent now with bathing and showering. Still unable to do higher level activities like yard work. Unsure when return to [place] is scheduled. Just got measured for a KRISTINE splint but has not gotten it yet. Assessment PT Clinical Summary The patient has made good progress in therapy although she continues to demonstrate very limited knee motion (23 to 90 degrees actively). She continues to have high pain at times but her pain has decreased to 4/10 at the lowest. She also demonstrates improved gait speed, gait pattern, and stair navigation. She will benefit from further therapy to address motion and strength in order to restore full gait pattern, eliminate need for assistive device, reduce pain, and return to prior level of function. Plan of Care Interventions Electrical Stimulation,Gait Training,Hot Pack/Cold Pack,Intermittent Compression Pump,Manual Therapy ,Neuro Re-education,Patient/Caregiver Education, Therapeutic Activities,Therapeutic Exercise PT Services Indicated Yes Treatment Frequency and 2-3 times a week for 10 visits Duration These treatments will address the objective and functional deficits as defined above. The patient will be advanced safely and appropriately in order for the patient to progress towards his/her prior level of function. Additional exercises will be introduced and as well as a comprehensive home exercise program upon discharge, if needed, ?to ensure carryover of functional gains achieved in the clinic. This treatment plan has been reviewed and agreement upon by the patient.
--- NOTE | 2024-11-17 11:19 | PTOPREEVAL ---
Assessment and note entered by Jere Lundy, PT Evaluation Information Assessment Status Re-evaluation Diagnosis R knee manipulation following TKA ICD-10 Condition Codes (PT) Pain in right knee M25.561,Difficulty Walking R26. 2,Weakness R53.1,Aftercare following joint replacement surgery Z47.1 Subjective Information Patient presents following a R knee manipulation by Dr. Dow . Pt notes she is sore today but does not have excessive pain. Pt and her note that she his currently taking oxycodone and Valium to promote relaxation and reduce muscle guarding. Pt and state continued use of KRISTINE splint and they would like to know which exercises to focus on. Reported Pain Level Pain Score 3: Self Report Assessment PT Clinical Summary Patient presents to physical therapy following a R knee manipulation on 11-16-24. Pt was instructed to continue physical therapy and KRISTINE splinting focusing on gaining ROM following the manipulation . Patient demonstrates weakness, pain, decreased mobility gait deficit, and decreased flexibility that limit their ability to perform activities of daily living and functional movements. Patient will benefit from skilled physical therapy to address the above listed deficits and return to prior level of function. Plan of Care Interventions Electrical Stimulation,Gait Training,Hot Pack/Cold Pack,Intermittent Compression Pump,Manual Therapy ,Neuro Re-education,Patient/Caregiver Education, Therapeutic Activities,Therapeutic Exercise PT Services Indicated Yes Treatment Frequency and 2-3 times a week for 10 visits Duration These treatments will address the objective and functional deficits as defined above. The patient will be advanced safely and appropriately in order for the patient to progress towards his/her prior level of function. Additional exercises will be introduced and as well as a comprehensive home exercise program upon discharge, if needed, ?to ensure carryover of functional gains achieved in the clinic. This treatment plan has been reviewed and agreement upon by the patient.
--- NOTE | 2024-12-16 15:59 | PTOPPROG ---
Assessment and note entered by Jere Lundy, PT Evaluation Information Assessment Status Progress Diagnosis R knee manipulation following TKA ICD-10 Condition Codes (PT) Pain in right knee M25.561,Difficulty Walking R26. 2,Weakness R53.1,Aftercare following joint replacement surgery Z47.1 Subjective Information Pt states she feels she continues to make gains with therapy. Pt states she has continued difficulty with getting a good night sleep, stairs , prolonged standing and sitting. Pt states she has trouble standing for greater than 5 minutes before needing to sit down due to pain and fatigue . Pt would like to continue therapy until her next orthopedic appointment to focus not only gaining ROM but walking with cane instead of the walker. Assessment PT Clinical Summary Pt continues to display increased pain with activity and ROM deficits following R TKA and subsequent Manipulation under anesthesia on November 16. Pt has made improvements in flexion ROM but extension appears to be limited by muscle guarding . Patient will continue to benefit from skilled PT focusing on techniques to decrease muscle guarding and progressing functional movements and actives to met therapy goals and return to prior level of function. Plan of Care Interventions Electrical Stimulation,Gait Training,Hot Pack/Cold Pack,Intermittent Compression Pump,Manual Therapy ,Neuro Re-education,Patient/Caregiver Education, Therapeutic Activities,Therapeutic Exercise PT Services Indicated Yes Treatment Frequency and 2x week for 8 visits Duration These treatments will address the objective and functional deficits as defined above. The patient will be advanced safely and appropriately in order for the patient to progress towards his/her prior level of function. Additional exercises will be introduced and as well as a comprehensive home exercise program upon discharge, if needed, ?to ensure carryover of functional gains achieved in the clinic. This treatment plan has been reviewed and agreement upon by the patient.
== END 2024-12-29 23:59 | disposition home or self-care (01) ==
LOC: ANHGOSHPT 13:15
PROVIDERS: PCP Family Medicine; Visit Provider Orthopaedic Surgery
DX: Z47.1 Aftercare following joint replacement surgery (principal); Z96.651 Presence of right artificial knee joint
CPT/HCPCS: 97014; 97110; 97112; 97116; 97140; 97161; 97164; 97530; G0283

== ENCOUNTER 2025-02-24 09:00 | Outpatient (RCR) | payer MEDICARE, OTHER, SELFPAY ==
--- NOTE | 2025-01-13 11:28 | PTOPPROG ---
Assessment and note entered by Jere Lundy, PT Evaluation Information Assessment Status Evaluation Diagnosis R knee manipulation following TKA ICD-10 Condition Codes (PT) Pain in right knee M25.561,Difficulty Walking R26. 2,Weakness R53.1,Aftercare following joint replacement surgery Z47.1 Subjective Information Pt reports see went for a follow up with the orthopedic surgeon. He was pleased with her progress and is scheduled for a final follow up in 1 year. Pt states she has difficulty with getting comfortable sitting down and feels she needs to have her foot propped up. She notes he standing tolerance is getting better and she was able to clean up the kitchen without having to take a seated rest break. Assessment PT Clinical Summary Patient's R knee has improved overall as evidenced by advancements in symptoms, mobility, strength, and overall functional use of the extremity. However, some limitations are still present in strength, standing and walking tolerance. Patient would benefit from continued skilled physical therapy services to address the above listed impairments and facilitate a return to their prior level of function. Plan of Care Interventions Electrical Stimulation,Gait Training,Hot Pack/Cold Pack,Intermittent Compression Pump,Manual Therapy ,Neuro Re-education,Patient/Caregiver Education, Therapeutic Activities,Therapeutic Exercise PT Services Indicated Yes Treatment Frequency and 1x week 6 visits Duration These treatments will address the objective and functional deficits as defined above. The patient will be advanced safely and appropriately in order for the patient to progress towards his/her prior level of function. Additional exercises will be introduced and as well as a comprehensive home exercise program upon discharge, if needed, ?to ensure carryover of functional gains achieved in the clinic. This treatment plan has been reviewed and agreement upon by the patient.
--- NOTE | 2025-02-24 09:47 | PTOPDC ---
Assessment and note entered by Jere Lundy, PT Evaluation Information Assessment Status Discharge Diagnosis R knee manipulation following TKA ICD-10 Condition Codes (PT) Pain in right knee M25.561,Difficulty Walking R26. 2,Weakness R53.1,Aftercare following joint replacement surgery Z47.1 Subjective Information Pt reports she is doing much better overall. She feels 85% recovered. She still has persist knee and calf tightness and has difficulty with this during longer car rides. Pt reports no other concerns. Reported Pain Level Pain Score 3: Self Report Assessment PT Clinical Summary Patient's R knee has improved overall as evidenced by advancements in symptoms, mobility, strength, and overall functional use of the extremity. Patient has met therapy goals and is pleased with progress made towards the remaining goals. Patient to discharge from physical therapy this date and continue with updated home exercise program as instructed. Patient to contact physical therapist or primary care provider if questions or concerns arise. Plan of Care PT Services Indicated No
== END 2025-02-24 15:29 | disposition home or self-care (01) ==
LOC: ANHGOSHPT 09:00
PROVIDERS: PCP Family Medicine; Visit Provider Orthopaedic Surgery
DX: Z47.1 Aftercare following joint replacement surgery (principal); Z96.651 Presence of right artificial knee joint
CPT/HCPCS: 97110; 97140; 97530

== ENCOUNTER 2025-04-20 15:59 | Emergency (ER) | payer MEDICARE, OTHER, SELFPAY ==
[2025-04-20 16:11] VITALS: BP 139/52; PULSE 61; RESP 16; TEMP 36.3; O2SAT 100
--- NOTE | 2025-04-20 16:29 | ED.SKABFB ---
HPI - Skin/Abscess/Foreign Bdy General Chief complaint: Skin/Abscess/Foreign Body Stated complaint: Rash patient presents to the [facility] accompanied by daughter with complaints of red, slightly itchy, burning rash underneath both breasts that began about 1 week ago and has been slowly getting worse. Patient has been putting topical hydrocortisone cream to the area that has helped slightly. No history of rash similar to this in the past. Denies drainage or crusting from the area Related Data Home Medications ?Medication ?Instructions ?Recorded ?Confirmed ?Last Taken ?Type epinephrine 0.3 mg/0.3 mL 0.3 mg IM ONCE PRN anaphylaxis 05/24/19 01/10/25 Unknown History injection, auto-injector (EpiPen) dgahjswz-tnxfsjn-trgx-lutein tablet 1 tablet PO DAILY 05/25/19 01/10/25 11/15/24 History vitamin B complex 1 tablet PO DAILY 05/25/19 01/10/25 11/15/24 History apixaban 5 mg tablet (Eliquis) 5 mg PO BID 05/11/24 01/10/25 07/28/24 History atorvastatin 40 mg tablet (Lipitor) 40 mg PO DAILY 05/11/24 01/10/25 11/15/24 History levothyroxine 25 mcg capsule 25 mcg PO DAILY 05/11/24 01/10/25 11/16/24 History losartan 25 mg tablet 25 mg PO HS 05/11/24 01/10/25 11/15/24 History pantoprazole 40 mg tablet,delayed 40 mg PO QHS 05/11/24 01/10/25 11/15/24 History release (Protonix) calcium carbonate (Calcium 600) 600 mg PO DAILY 07/29/24 01/10/25 11/15/24 History cholecalciferol (vitamin D3) 125 125 mcg PO DAILY 07/29/24 01/10/25 11/15/24 History mcg (5,000 unit) capsule folic acid 800 mcg tablet 800 mcg PO DAILY 07/29/24 01/10/25 11/15/24 History sertraline 25 mg tablet 12.5 mg PO HS 07/29/24 01/10/25 11/15/24 History magnesium 200 mg tablet 200 mg PO DAILY 08/17/24 01/10/25 11/15/24 History omega 6-sov-hyb-fish oil 1,200 mg 1 cap PO DAILY 08/17/24 01/10/25 11/15/24 History (144 mg-216 mg) capsule (Fish Oil) Allergies Allergy/AdvReac Type Severity Reaction Status Date / Time Sulfa (Sulfonamide Allergy Intermediate Sulfa Verified 01/10/25 13:21 Antibiotics) (Sulfonamide Antibiotics) ([id number]) trimethoprim Allergy Mild rash Verified 01/10/25 13:21 bacitracin Allergy Unknown RASH Verified 01/10/25 13:21 clarithromycin Allergy Unknown clarithromycin Verified 01/10/25 13:21 ([id number]) nickel Allergy Unknown RASH Verified 01/10/25 13:21 Penicillins Allergy Unknown RASH Verified 01/10/25 13:21 bee venom protein (honey bee) Allergy Swelling Verified 01/10/25 13:21 cinnamon Allergy Anaphylaxis Verified 01/10/25 13:21 coconut Allergy Hives Verified 01/10/25 13:21 levofloxacin AdvReac Intermediate insomnia Verified 01/10/25 13:21 diphenhydramine AdvReac Unknown PALPITATIONS, Verified 01/10/25 13:21 INCREASED HEART RATE pseudoephedrine AdvReac Unknown PALPITATION Verified 01/10/25 13:21 S silicone AdvReac Unknown REACTION Verified 01/10/25 13:21 TO URETERAL STENT loratadine AdvReac Insomnia Verified 01/10/25 13:21 Review of Systems Constitutional: Constitutional: Reports as per HPI, Denies chills, Denies fatigue, Denies fever(s) and Denies weakness Eyes: Eyes: Reports no additional eye complaints ENT: Reports system reviewed and no additional complaints, except as documented Cardiovascular: Cardiovascular: Reports no additional cardiovascular complaints Respiratory: Respiratory: Reports no additional respiratory complaints Gastrointestinal: Gastrointestinal: Reports no additional gastrointestinal complaints Genitourinary: Genitourinary: Reports no additional female genitourinary complaints Musculoskeletal: Musculoskeletal: Reports no additional musculoskeletal complaints Integumentary/Breasts: Skin/Breast: Reports as per HPI, Reports pruritus, Reports erythema and Reports rash Neurologic: Reports as per HPI, Denies numbness and Denies weakness Psychiatric: Psychiatric: Reports no additional psychiatric complaints Endocrine: Endocrine: Reports no additional endocrine complaints Hematologic/Lymphatic: Hematologic/Lymphatic: Reports no additional hematologic/lymphatic complaints Allergic/Immunologic: Allergic/Immunologic: Reports no additional allergic/immunologic complaints PMFSH Past Medical History Medical History Anxiety 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 Social History Social History Smoking packs per day: 1 Smoking cigarettes per day: 20.0 Years smoked: 13 Smoking pack-years: 13.00 Smoking status: Former smoker Tobacco type: cigarettes Second hand tobacco smoke exposure: Yes Alcohol intake: current Drinks per week: 14 Alcohol use details: wine Substance use: former Substance use type: marijuana Last use: 1974 Lack of Transportation: YES Lack of Food: Never True Current Housing: I Have Housing Concerned About Future Housing: No Difficulty Paying Gas/Electric Bills: No Difficulty Paying for Meds: No Currently Unemployed: No Education: Master's Degree or Higher Difficulty w/ Childcare or Family Care: No Living arrangements: with family Additional living arrangements comments: [facility]ET[facility] Gender identity (if verbalized by the patient): Female Spiritual care concerns: No Exam Const: General: healthy appearing and no acute distress Nutritional Appearance: well nourished Orientation/consciousness: patient oriented x3 Limitations: no limitations Resp: Effort & Inspection: normal respiratory effort Auscultation: clear to auscultation bilaterally Cardio: Rate: regular rate Rhythm: regular rhythm Skin: General skin exam: normal color Rashes: rash noted Wounds: no wounds Other: diffuse, red, papular rash noted with central clearing underneath both breasts with satellite lesions Neuro: General: patient oriented x3 Speech: normal speech Gait exam (Neuro): Normal gait present Psych: Mental Status: mental status grossly normal Affect: normal affect Attitude: cooperative Course Course Level of Care: Express Care Visit Vital Signs Vital signs: Vital Signs Temperature 97.3 F L 04/20/25 16:11 Pulse Rate 61 04/20/25 16:11 Respiratory Rate 16 12/24/25 16:11 Blood Pressure 139/52 L 04/20/25 16:11 Pulse Oximetry 100 04/20/25 16:11 Temperature 97.3 F L 04/20/25 16:11 Pulse Rate 61 04/20/25 16:11 Respiratory Rate 16 04/20/25 16:11 Blood Pressure 139/52 L 04/20/25 16:11 Pulse Oximetry 100 04/20/25 16:11 [facility] Narrative Medical decision making narrative: The patient was evaluated by myself in the [facility] care. History is obtained from patient who is an independent historian and physical exam was performed. Available medical records were reviewed at this time. Exam findings show no acute concerns or changes; patient is non-toxic appearing and is in no distress. Patient is appropriate for outpatient treatment and follow-up. I have evaluated and discussed social determinants of health with the patient that could potentially impact subsequent diagnosis and treatment plans. Differential diagnosis and treatment plan were discussed with the patient. Patient agrees with discussion and after shared medical decision making agrees with plan of care. All questions were answered to the patient's satisfaction. Differential Diagnosis Differential Diagnosis: rash, fungal rash, shingles, contact dermatitis Medical Records I have reviewed the following patient records and this information was taken into consideration when formulating the assessment and plan.: previous labs, previous ER visits, previous hospitalizations and previous clinic visits Discharge Plan Discharge Clinical Impression: Candidiasis of skin Patient Disposition: Home Condition: Stable Instructions: Antibiotic Form, Tinea Corporis (ED) Additional Instructions: keep area clean and dry as possible. Use the topical medications as directed until rash is gone then continue use for 24 hours may also use kxbc-afh-ydadynm Lotrimin powder take the fluconazole as directed Patient Language: Vietnamese Prescriptions: New fluconazole 150 mg tablet 150 mg PO Q72H Qty: 2 0RF nystatin 100,000 unit/gram cream 1 applic topical TID Qty: 60 0RF No Action Eliquis 5 mg tablet 5 mg PO BID Patient Comments: HOLD FOR 2 days prior to surgery per Dr Hogan losartan 25 mg tablet 25 mg PO HS pantoprazole [Protonix] 40 mg tablet,delayed release (DR/EC) 40 mg PO QHS levothyroxine 25 mcg capsule 25 mcg PO DAILY atorvastatin [Lipitor] 40 mg tablet 40 mg PO DAILY diazepam [Valium] 5 mg tablet 5 mg PO BID PRN (Reason: muscle spasm) Qty: 30 0RF epinephrine [EpiPen] 0.3 mg/0.3 mL auto-injector 0.3 mg IM ONCE PRN (Reason: anaphylaxis) Rx Instructions: as a single dose pywigojl-bschdbu-rjbr-lutein Tablet 1 tablet PO DAILY vitamin B complex Tablet 1 tablet PO DAILY folic acid 800 mcg tablet 800 mcg PO DAILY cholecalciferol (vitamin D3) 125 mcg (5,000 unit) capsule 125 mcg PO DAILY sertraline 25 mg tablet 12.5 mg PO HS calcium carbonate [Calcium 600] 600 mg calcium (1,500 mg) tablet 600 mg PO DAILY omega 2-qei-weq-fish oil [Fish Oil] 1,200 (144-216) mg capsule 1 cap PO DAILY magnesium 200 mg tablet 200 mg PO DAILY Follow-up/Referrals: PHYSICIAN,CLERICAL RECEPTIONIST [Primary Care Provider, Internal Medicine] Time of Disposition: 16:31
== END 2025-04-20 16:36 | disposition home or self-care (01) ==
PROVIDERS: Emergency Provider Nurse Practitioner Family
DX: B37.2 Candidiasis of skin and nail (principal); G30.9 Alzheimer's disease, unspecified; F02.80 Dementia in other diseases classified elsewhere, unspecified severity, without behavioral disturbance, psychotic disturbance, mood disturbance, and anxiety; I48.0 Paroxysmal atrial fibrillation; E06.3 Autoimmune thyroiditis; K21.9 Gastro-esophageal reflux disease without esophagitis; F41.9 Anxiety disorder, unspecified
CPT/HCPCS: 99213; G0463

== ENCOUNTER 2025-04-26 13:44 | Emergency (ER) | payer MEDICARE, OTHER, SELFPAY ==
[2025-04-26 13:55] VITALS: BP 139/70; PULSE 72; RESP 16; TEMP 36.4; O2SAT 97
--- NOTE | 2025-04-26 15:21 | ED.SKABFB ---
HPI - Skin/Abscess/Foreign Bdy General Chief complaint: Skin/Abscess/Foreign Body Stated complaint: Rash Time Seen by Provider: 04/26/25 14:15 Source: patient and RN notes reviewed Mode of arrival: ambulatory Limitations: no limitations History of Present Illness HPI narrative: 74-year-old female patient presents [facility] complaining of rash on her chest and under her breast. Patient was seen here last week diagnosed with a skin yeast infection who was sent home with fluconazole along with nystatin powder. Patient said it did not help. Patient says the rash is spreading she reports on her arms and legs now. Also reports pruritus. Patient has any pain, fevers, difficulty breathing, if nausea vomiting, or any other symptoms. Related Data Home Medications ?Medication ?Instructions ?Recorded ?Confirmed ?Last Taken ?Type epinephrine 0.3 mg/0.3 mL 0.3 mg IM ONCE PRN anaphylaxis 05/24/19 01/10/25 Unknown History injection, auto-injector (EpiPen) ydmezhyy-awhlkdz-vrws-lutein tablet 1 tablet PO DAILY 05/25/19 01/10/25 11/15/24 History vitamin B complex 1 tablet PO DAILY 05/25/19 01/10/25 11/15/24 History apixaban 5 mg tablet (Eliquis) 5 mg PO BID 05/11/24 01/10/25 07/28/24 History atorvastatin 40 mg tablet (Lipitor) 40 mg PO DAILY 05/11/24 01/10/25 11/15/24 History levothyroxine 25 mcg capsule 25 mcg PO DAILY 05/11/24 01/10/25 11/16/24 History losartan 25 mg tablet 25 mg PO HS 05/11/24 01/10/25 11/15/24 History pantoprazole 40 mg tablet,delayed 40 mg PO QHS 05/11/24 01/10/25 11/15/24 History release (Protonix) calcium carbonate (Calcium 600) 600 mg PO DAILY 07/29/24 01/10/25 11/15/24 History cholecalciferol (vitamin D3) 125 125 mcg PO DAILY 07/29/24 01/10/25 11/15/24 History mcg (5,000 unit) capsule folic acid 800 mcg tablet 800 mcg PO DAILY 07/29/24 01/10/25 11/15/24 History sertraline 25 mg tablet 12.5 mg PO HS 07/29/24 01/10/25 11/15/24 History magnesium 200 mg tablet 200 mg PO DAILY 08/17/24 01/10/25 11/15/24 History omega 7-mnd-vcp-fish oil 1,200 mg 1 cap PO DAILY 08/17/24 01/10/25 11/15/24 History (144 mg-216 mg) capsule (Fish Oil) Allergies Allergy/AdvReac Type Severity Reaction Status Date / Time Sulfa (Sulfonamide Allergy Intermediate Sulfa Verified 04/26/25 14:01 Antibiotics) (Sulfonamide Antibiotics) ([id number]) trimethoprim Allergy Mild rash Verified 04/26/25 14:01 bacitracin Allergy Unknown RASH Verified 04/26/25 14:01 clarithromycin Allergy Unknown clarithromycin Verified 04/26/25 14:01 ([id number]) nickel Allergy Unknown RASH Verified 04/26/25 14:01 Penicillins Allergy Unknown RASH Verified 04/26/25 14:01 bee venom protein (honey bee) Allergy Swelling Verified 04/26/25 14:01 cinnamon Allergy Anaphylaxis Verified 04/26/25 14:01 coconut Allergy Hives Verified 04/26/25 14:01 levofloxacin AdvReac Intermediate insomnia Verified 04/26/25 14:01 diphenhydramine AdvReac Unknown PALPITATIONS, Verified 04/26/25 14:01 INCREASED HEART RATE pseudoephedrine AdvReac Unknown PALPITATION Verified 04/26/25 14:01 S silicone AdvReac Unknown REACTION Verified 04/26/25 14:01 TO URETERAL STENT loratadine AdvReac Insomnia Verified 04/26/25 14:01 Review of Systems Review of Systems: CONSTITUTIONAL: Denies fever, chills, or sweats. EYES: Denies visual changes, redness, or discharge. ENT: Denies rhinorrhea, congestion, sore throat, or otalgia. CARDIOVASCULAR: Denies chest pain, palpitations, or edema. RESPIRATORY: Denies cough or dyspnea. GASTROINTESTINAL: Denies abdominal pain, nausea, vomiting, or diarrhea. GENITOURINARY: Denies dysuria or hematuria. SKIN: Positive for rash and itching. MUSCULOSKELETAL: Denies back pain, joint pain, or myalgia. NEUROLOGIC: Denies headache, numbness, or weakness. PSYCHIATRIC: Denies anxiety or depression. All other systems reviewed are negative, except as documented in HPI. 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 Social History Social History Smoking packs per day: 1 Smoking cigarettes per day: 20.0 Years smoked: 13 Smoking pack-years: 13.00 Smoking status: Former smoker Tobacco type: cigarettes Second hand tobacco smoke exposure: Yes Alcohol intake: current Drinks per week: 14 Alcohol use details: wine Substance use: former Substance use type: marijuana Last use: 1974 Lack of Transportation: YES Lack of Food: Never True Current Housing: I Have Housing Concerned About Future Housing: No Difficulty Paying Gas/Electric Bills: No Difficulty Paying for Meds: No Currently Unemployed: No Education: Master's Degree or Higher Difficulty w/ Childcare or Family Care: No Living arrangements: with family Additional living arrangements comments: [facility] Gender identity (if verbalized by the patient): Female Spiritual care concerns: No Comments At the time of my signature, I reviewed and agree with the nursing past medical, surgical, social, and family history. There is no relevant family history pertinent to the patient complaint. Exam Narrative: GENERAL: This is a well-nourished, well-developed adult, in no apparent distress. They are non ill-appearing, nontoxic appearing. HEAD: normocephalic, atraumatic. EYES: Sclera clear/white. Conjunctiva normal. Vision is grossly intact. Extraocular movements intact EARS: External ears normal, Hearing grossly intact. NOSE: External nose normal THROAT: Mucous membranes moist, CARDIOVASCULAR: Regular rate and rhythm RESPIRATORY: Respiratory rate normal, respiratory effort nonlabored, no respiratory distress SKIN: Trunk: Erythematous homogeneous patches to the patient's bilateral breast with satellite lesions to the patient's chest and upper abdomen. No other lesions or rashes identified. Patient's skin is pruritic, nontender to palpate, no are fluctuance or induration. NEURO: awake, alert, and oriented to person, place and time. There were no obvious focal neurologic abnormalities. EXTREMITIES: No joint tenderness, effusion, or edema noted. BACK: Nontender without deformity. Course Course Level of Care: Express Care Visit Vital Signs Vital signs: Vital Signs Temperature 97.6 F 04/26/25 13:55 Pulse Rate 72 04/26/25 13:55 Respiratory Rate 16 04/26/25 13:55 Blood Pressure 139/70 04/26/25 13:55 Pulse Oximetry 97 04/26/25 13:55 Temperature 97.6 F 04/26/25 13:55 Pulse Rate 72 04/26/25 13:55 Respiratory Rate 16 04/26/25 13:55 Blood Pressure 139/70 04/26/25 13:55 Pulse Oximetry 97 04/26/25 13:55 [facility] MDM Narrative Medical decision making narrative: Patient is refractory to treatment, likely intertrigo secondary to moose infection given exam findings. Patient reports that the rash is spreading throughout her entire body however on exam does not appear rashes present to her lower extremities, face, or back. Likely from the pruritic sensation she is having. Will change nystatin the clotrimazole and give for weekly fluconazole on advised patient a started from her last dose for the next 3 weeks. Discussed supportive care with patient. Discussed physical exam findings. Advised supportive measures and signs/symptoms to go to the ER. Pt is appropriate for outpt treatment and f/u. R.N. informed me after patient is discharged that they are going to go to the ER because they were worried about the skin lesions. Differential Diagnosis Differential Diagnosis: Differential diagnostic considerations for skin/abscess/foreign body issues include abscess of skin or subcutaneous tissue, viral exanthem, dermatophytosis, urticaria, herpes zoster, allergic reaction to drug, cellulitis, eczema, insect bites, impetigo, contact dermatitis, vasculitis. Critical Care Time Critical Care Time Critical Care Time: No Discharge Plan Discharge Clinical Impression: Intertrigo Patient Disposition: Home Condition: Stable Instructions: Antibiotic Form, Skin Yeast Infection (ED) Additional Instructions: Use a clotrimazole as directed for next 4 weeks. Take fluconazole weekly next 3 weeks. Applied liberally to the affected areas. Please keep the area dry, dry really well after showers. May use gold [place] powder anti moisture powders to help keep the area dry throughout the day. Leave the skin open the air when able. Follow-up with your PCP in 3-5 days. May use [id number]-imf-[id number] Zyrtec or Claritin for itchiness. Go to the ER for any worsening redness, swelling, breathing problems, fevers, or any serious concerns. Patient Language: Tunisian Prescriptions: New clotrimazole 1 % cream 1 applic topical BID 28 Days Qty: 90 0RF Rx Instructions: Apply to affected area fluconazole 150 mg tablet 150 mg PO WEEKLY 21 Days Qty: 3 0RF Rx Instructions: as a single dose No Action fluconazole 150 mg tablet 150 mg PO Q72H Qty: 2 0RF nystatin 100,000 unit/gram cream 1 applic topical TID Qty: 60 0RF Eliquis 5 mg tablet 5 mg PO BID Patient Comments: HOLD FOR 2 days prior to surgery per Dr Hogan losartan 25 mg tablet 25 mg PO HS pantoprazole [Protonix] 40 mg tablet,delayed release (DR/EC) 40 mg PO QHS levothyroxine 25 mcg capsule 25 mcg PO DAILY atorvastatin [Lipitor] 40 mg tablet 40 mg PO DAILY diazepam [Valium] 5 mg tablet 5 mg PO BID PRN (Reason: muscle spasm) Qty: 30 0RF epinephrine [EpiPen] 0.3 mg/0.3 mL auto-injector 0.3 mg IM ONCE PRN (Reason: anaphylaxis) Rx Instructions: as a single dose ndsjhiie-dqshvla-gxne-lutein Tablet 1 tablet PO DAILY vitamin B complex Tablet 1 tablet PO DAILY folic acid 800 mcg tablet 800 mcg PO DAILY cholecalciferol (vitamin D3) 125 mcg (5,000 unit) capsule 125 mcg PO DAILY sertraline 25 mg tablet 12.5 mg PO HS calcium carbonate [Calcium 600] 600 mg calcium (1,500 mg) tablet 600 mg PO DAILY omega 9-yik-bjx-fish oil [Fish Oil] 1,200 (144-216) mg capsule 1 cap PO DAILY magnesium 200 mg tablet 200 mg PO DAILY Follow-up/Referrals: PHYSICIAN,ENVIRONMENTAL SERVICES DIRECTOR [Primary Care Provider, Internal Medicine] Time of Disposition: 14:44
== END 2025-04-26 14:48 | disposition home or self-care (01) ==
DX: L30.4 Erythema intertrigo (principal); G30.9 Alzheimer's disease, unspecified; F02.80 Dementia in other diseases classified elsewhere, unspecified severity, without behavioral disturbance, psychotic disturbance, mood disturbance, and anxiety; I48.0 Paroxysmal atrial fibrillation; E06.3 Autoimmune thyroiditis; E78.5 Hyperlipidemia, unspecified; F41.9 Anxiety disorder, unspecified; Z79.01 Long term (current) use of anticoagulants; Z87.891 Personal history of nicotine dependence
CPT/HCPCS: 99213; G0463